=== PATIENT | male | born 1980 ===

== ENCOUNTER 2023-02-14 22:38 | Emergency (ER) | payer BC, OTHER ==
--- OUTSIDE RECORDS SUMMARY | 2023-02-14 22:54 | XMS REPORT | Continuity of Care Document ---
:1980 Author Organization [facility] t Address [address] [facility] [address] [place] [address] Care Team Providers Name Role Phone ANTONIO PALMA Primary Care Physician Unavailable Zeke Dodd Attending Clinician Unavailable German Madsen MD Attending Clinician Bella Pichardo MD Attending Clinician BELLA PICHARDO Attending Clinician Unavailable Alejandro Ortiz DO Attending Clinician Doctor Unassigned, [place] Attending Clinician Unavailable Roger Walls Attending Clinician Royal Cuadra Attending Clinician Hal Torres Attending Clinician Carl Saul Attending Clinician Physician, No Primary or Family Admitting Clinician UnavailBella Fleming MD Admitting Clinician BELLA PICHARDO Admitting Clinician Unavailable Roger Walls Admitting Clinician Hal Torres Admitting Clinician Carl Saul Admitting Clinician Payers Payer Name Policy Type Policy Number Effective Date Expiration Date S ource Problems Condition Condition Condition Status Onset Resolution Last Treating Co mments Source Name Details Category Date Date Treatment Clinician Date Sinus Sinus Disease Active [facility] bradycardi bradycardi 12-18 it y of a a 00:00: [place] 00 Medical Branch RUQ pain RUQ pain Disease Active Unive rs 5-29 ity of 00:00: [place] 00 Medical Branch SBO (small SBO (small Disease Active 2018-07 U nivers bowel bowel 1-25 it[place] obstruct[place] Obesity Obesity Disease Active 2018-07 Univers (BMI (BMI 1-25 ity of 30-39.9) 30-39.9) 00:00: [place] 00 Medical Branch DX: R10.9 DX: Diagnosis Active 2017-072018-04-23 Memoria R10.9 0 14:12:00 l Active 00:00: Vijay 04/23/2018 00 [facility] Hominy DIVERTICUL DIVERTICU Diagnosis Active 2018-04-23 Memoria ITIS OF LITIS OF 03-18 21:55:00 l LARGE LARGE 06:00: Hom[place] INTESTINE INTESTINE 00 W/O PE W/O PE Active 03/18/2018 [facility] UNK UNK Diagnosis Active 2018-03-20 Mem oria Active 03-18 15:01:00 l 03/18/2018 00:00: Dylon logan [address] OTHER PER OTHER Diagnosis Active 2018-02-23 Sean BEAUCHAMP PER 02-22 00:30:00 l Active 00:00: Vijay 02/22/2018 00 [facility] DIVERTICUL DIVERTICU Diagnosis Active 2018-02-27 Memoria ITIS LARGE LITIS 02-22 15:48:00 l INTESTINE LARGE 00:00: Vijay INTESTINE 00 Active 02/22/2018 [facility] PARTIAL PARTIAL Diagnosis Active 2016-072017-07-22 Memoria SBO SBO Active 09-07 21:57:00 l 07/07/2017 23:34: Dylon logan [address] Gastro-eso Gastro-es Problem 2018-11-06 Memoria phageal ophageal 11:05:19 l reflux reflux Hominy disease disease without without esophagiti esophagiti s s 11/06/2018 [facility] Personal Personal Problem 2018-11-06 Memoria history of history of 11:05:19 l peptic peptic Hominy ulcer ulcer disease disease 11/06/2018 [facility] 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, 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, 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, of small part intestine, unspecifie part d unspecifie d 07/14/2017 [facility] Diverticul Diverticu Problem 2018-11-06 Memoria itis of litis of 11:05:19 l large large Vijay intestine intestine without without perforatio perforatio n or n or abscess abscess without without bleeding bleeding 11/06/2018 [facility] Morbid Morbid Problem 2018-11-06 Shashi kita (severe) (severe) 11:05:19 l obesity obesity Hominy due to due to excess excess calories calories 11/06/2018 [facility] Peritoneal Peritonea Problem 2018-11-06 Memoria adhesions l 11:05:19 l (postproce adhesions Her justin dural) (postproce (postinfec dural) tion) (postinfec tion) 11/06/2018 [facility] Gastric Gastric Problem Resolve 2018-12-14 M emoria ulcer ulcer d 13:43:01 l (disorder) (disorder) He rmann Resolved Problem 12/14/2018 [facility] Intestinal Intestina Problem Resolve 2018-12-14 Memoria obstructio l d 13:43:01 l n obstructio Dylon n (disorder) n (disorder) Resolved Problem 12/14/2018 [facility] Diverticul Diverticu Problem Active 2018-12-14 Memoria itis of litis of 13:43:01 l sigmoid sigmoid Vijay colon colon (disorder) (disorder) Active Problem 12/14/2018 [facility] Gastroesop Gastroeso Problem Active 2018-12-14 Memoria hageal phageal 13:43:01 l reflux reflux Vijay disease disease (disorder) (disorder) Active Problem 12/14/2018 [facility] Simple Simple Problem Active 2018-12-14 Shashi kita obesity obesity 13:43:01 l (disorder) (disorder) He rmann Active Problem 12/14/2018 [facility] UNSP UNSP Diagnosis Active 2017-07-22 Mem oria INTESTNL INTESTNL 21:57:00 l OBST, UNSP OBST, UNSP He rmann TO TO PARTIAL V PARTIAL V Active [facility] 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, ABSENCE, 01:45:00 l ATRESIA ATRESIA Hominy AND AND STENOSIS STENOSIS OF OF Active [facility] DVTRCLI OF DVTRCLI Diagnosis Active 2018-02-27 Memoria LG INT W OF LG INT 15:48:00 l PERFORATIO W Dylon n N AND ABSC PERFORATIO N AND ABSC Active [facility] DVTRCLI OF DVTRCLI Diagnosis Active 2018-04-23 Memoria LG INT W/O OF LG INT 21:55:00 l PERFORATIO W/O Dylon n N OR ABS PERFORATIO N OR ABS Active [facility] OBSTRUCTIV OBSTRUCTI Diagnosis Active 2018-04-17 Memoria E SLEEP VE SLEEP 09:21:00 l APNEA APNEA Hominy (ADULT) (ADULT) (PEDIATR (PEDIATR Active [facility] History of Past Illness Condition Condition Condition Status Onset Resolution Last Treating Co mments Source Name Details Category Date Date Treatment Clinician Date Right Right Problem 2017-072018-11-10 2018-11-10 M emoria upper upper 0-10 15:48:13 15:48:13 l quadrant quadrant 03:38: Dylon n pain pain 53 04/29/2018 11/10/2018 [facility] Diverticul Diverticu Problem 2017-072018-11-06 2018-11-06 Memoria itis of litis of 2-03 11:05:19 11:05:19 l large large 04:48: Vijay intestine intestine 59 with with perforatio perforatio n and n and abscess abscess without without bleeding bleeding 06/22/2018 9 [facility] Allergies, Adverse Reactions, Alerts Allergy Allergy Status Severity Reaction(s) Onset Inactive Treating Comm ents Source Name Type Date Date Clinician No Known DA Active U 2020-07 [facility] Allergie 0-08 Clear s 00:00: Gil 00 [facility] No Known DA Active U 2020-07 [facility] Allergie 0-08 Clear s 00:00: Gil 00 [facility] cefuroxi DA Active U [facility] me 6-23 Clear 00:00: Gil 00 [facility] cefuroxi DA Active U 2007- [facility] me 6- Clear 00:00: Gil [facility] CEFTIN DA Active U 2007- [facility] 6- Clear 00:00: Gil [facility] No Known DA Active U 2007- [facility] Contrast - Clear Allergie 00:00: Gil s 00 [facility] No Known DA Active U 2007- [facility] Food 6- Clear Allergie 00:00: Gil s [facility] No Known DA Active U [facility] Other 6- Clear Allergie 00:00: Gil s 00 [facility] NO KNOWN Drug Active Univers ALLERGIE Class ity of S [place] [facility] No Known No Known Active Memori a Medicati Medicati l on on Vijay Allergie Allergie s s Social History Social Habit Start Date Stop Date Quantity Comments Source History [facility] o f Alcohol Frequency [facility] edical Branch Exposure to 2022-12-06 2022-12-16 Not sure [facility] SARS-CoV-2 00:00:00 17:03:00 [place] [facility] Tobacco use and 2022-12-16 2022-12-16 Former smokeless Uni versity of exposure 00:00:00 00:00:00 tobacco user [place] [facility] Alcohol intake 2022-12-16 2022-12-16 Current drinker Unive rsity of 00:00:00 00:00:00 of alcohol [place] [facility] (finding[facility] 2019-06-14 2019-06-14 5 University o f Alcohol Std 00:00:00 00:00:00 [place] [facility] History [facility] 2019-06-14 2019-06-14 3 University o f Alcohol Binge 00:00:00 00:00:00 [place] [facility] Social History 2017-07-08 2017-07-08 [facility] 08:08:54 08:08:54 [birth year] Universit y of 00:00:00 00:00:00 [facility] Branch Smoking Status Start Date Stop Date Source Never smoked tobacco [facility] Medications Ordered Filled Start Stop Current Ordering Indication Dosage Frequency Signature Comments Components Source Medication Medication Date Date Medication? Clinician (SIG) Name Name levothyroxi 2022- Yes [id number] 50ug Take 1 Univers ne 50 mcg 12-20 tablet by ity of tablet 00:00: 04:59 mouth [place] 00 :00 every Medical morning Branch for 30 days. pantoprazol 2022- Yes [id number] 40mg Take 1 Univers e 40 mg EC 12-20 tablet by ity of tablet 00:00: 04:59 mouth in [place] 00 :00 the Medical morning Branch for 30 days. levothyroxi Yes 50ug 50 mcg, Uni vers ne 12-19 Oral, ity of (SYNTHROID) 11:00: QAM-0600, [place] tablet 50 00 First dose Medi ivan mcg on Fri Branch 12/19/22 at 0600, Until Discontinu ed, Routine ondansetron Yes [id number] 4mg Take 1 Univers 4 mg tablet 12-19 tablet by ity of 00:00: mouth [place] 00 every 8 Medical (eight) Branch hours as needed for Nausea and Vomiting (N/V). sucralfate 2022- Yes [id number] 1g Take 1 Univers 1 gram 12-19 tablet by ity of tablet 00:00: 04:59 mouth [place] 00 :00 before Medical meals and Branch at bedtime for 30 days. HYDROcodone 2022- Yes [id number] 1{tbl} Take 1 U nivers -acetaminop 12-19 tablet by it y of hen 5-325 00:00: 04:59 mouth [place] mg tablet 00 :00 every 6 Medical (six) Branch hours as needed for Pain (scale 4-6) for up to 5 days. Indication s: acute pain HYDROcodone Yes 1{tbl} 1 tablet, Univers -acetaminop 5-31 Oral, ity of hen (NORCO 22:56: Q6HPRN, [place] 5) 5-325 mg 33 Starting Medi ivan tablet 1 on Fri Branch tablet 12/18/22 at 1756, Until Discontinu ed, Routine, Pain (scale 4-6) morpHINE (2 Yes 4mg 4 mg, Slow Univers mg/mL) 5-30 IV Push, ity of injection 4 22:43: Q4HPRN, Le[place] as mg 59 Starting Medical on Fri Branch 12/17/22 at 1743, Until Discontinu ed, Routine, Pain (scale 7-10) pantoprazol Yes 40mg 40 mg, Univ ers e 12-17 Oral, ity of (PROTONIX) 14:00: DAILY, [place] EC tablet 00 First dose Medi ivan 40 mg on Fri12/17/22 at 0900, Until Discontinu ed, Routine NaCl 0.9% 2022- No 1000mL at 50 Univ ers (NS) IV 12-17 06-01 mL/hr, IV ity of infusion 13:30: 13:52 Infusion, Leif as 1,000 mL 00 :41 CONTINUOUS Medic al , Starting Branch on Fri12/17/22 at 0830, Until Merna 12/19/22 at 0852, Routine pantoprazol 2022- No 40mg 40 mg, Uni vers e 12-16 Slow IV ity of (PROTONIX) 23:00: 22:24 Push, [place] injection 00 :00 ONCE, 1 Medical 40 mg dose, On Branch Fri12/16/22 at 1800 NaCl 0.9% 2022- No 1000mL at 125 Uni vers (NS) IV 12-16 0530 mL/hr, IV ity of infusion 22:15: 13:25 Infusion, Leif as 1,000 mL 00 :41 CONTINUOUS Medic al , Starting Branch on Fri12/16/22 at 1715, Until Fri12/17/22 at 0825, Routine ondansetron Yes 4mg 4 mg, Slow Univers (ZOFRAN 12-16 IV Push, ity of (PF)) 22:06: Q6HPRN, [place] injection 4 18 Starting Medi ivan mg on Fri12/16/22 at 1706, Until Discontinu ed, Routine, Nausea and Vomiting (N/V) morpHINE (2 2022- No 4mg 4 mg, Slow Univers mg/mL) 12-16 IV Push, ity of injection 4 22:06: 22:05 Q4HPRN, [place] mg 14 :14 Starting Medical on Fri12/16/22 at 1706, Until Fri12/17/22 at 1705, Routine, Pain (scale 7-10) HYDROcodone 2022-0 2022- No 1{tbl} 1 tablet, Univers -acetaminop 12-16 Oral, ity of hen (NORCO 22:06: 22:05 Q6HPRN, Le[place] as 5) 5-325 mg 12 :12 Starting Medi ivan tablet 1 on Fri tablet 12/16/22 at 1706, Until 12/18/22 at 1705, Routine, Pain (scale 4-6) acetaminoph Yes 650mg 650 mg, Un jonas en 12-16 Oral, ity of (TYLENOL) 22:06: Q6HPRN, [place] tablet 650 05 Starting Medic al mg on Fri Branch 12/16/22 at 1706, Until Discontinu ed, Routine, Pain (scale 1-3), Temp > 38 C sucralfate Yes 1g 1 g, Oral, U nivers (CARAFATE) 12-16 AC+HS, ity of tablet 1 g 21:30: [place] dose [place] 00 on Fri Medical 12/16/22 at Branch 1630, Until Discontinu ed, Routine FENTanyl PF 2022- No 75ug 75 mcg, Un jonas (SUBLIMAZE 12-16 Slow IV ity o f (PF)) 19:15: 18:28 Push, [place] injection 00 :00 ONCE, 1 Medical 75 mcg dose, On Branch Fri12/16/22 at 1415, STAT NaCl 0.9% No 1000mL at 125 Uni vers (NS) bolus 12-16 mL/hr, ity of infusion 19:15: 18:27 1,000 mL, [place] as 1,000 mL 00 :00 IV Medical Infusion, Branch ONCE, 1 dose, On Fri12/16/22 at 1415, STAT iopamidol 2022- No [id number] 75mL 75 mL, Univers (ISOVUE 12-16 Intravenou ity o f 370-500 mL) 18:35: 18:45 s, ONCE, 1 [place] injection 00 :00 dose, On Medica l 75 mL [facility] Branch 12/16/22 at 1345, Routine Acetaminoph No 2 tab, PO, Memoria en 300 MG / -30 Q6H, PRN l Codeine 16:17: Pain, X 7 Veronica nn Phosphate 00 day, # 56 30 MG Oral tab, 0 Tablet Refill(s) [Tylenol with Codeine #3] tramadol No 100 mg = 2 Mem oria hydrochlori 9-30 tab, PO, l de 50 MG 16:17: Q6H, X 7 Veronica nn Oral Tablet 00 day, # 56 tab, 0 Refill(s) gabapentin Yes 300 mg = 1 M emoria 300 MG Oral 9-30 cap, PO, l Capsule 16:17: TID, # 42 Veronica nn 00 cap, 0 Refill(s) Acetaminoph 0 No 2 tab, PO, Memoria en 300 MG / 9-30 Q6H, PRN l Codeine 16:17: Pain, X 7 Veronica nn Phosphate 00 day, # 56 30 MG Oral tab, 0 Tablet Refill(s) [Tylenol with Codeine #3] tramadol No 100 mg = 2 Mem oria hydrochlori 9-30 tab, PO, l de 50 MG 16:17: Q6H, X 7 Veronica nn Oral Tablet 00 day, # 56 tab, 0 Refill(s) gabapentin 2017- Yes 300 mg = 1 M emoria 300 MG Oral 9-30 cap, PO, l Capsule 16:17: TID, # 42 Veronica nn 00 cap, 0 Refill(s) Acetaminoph 0 No 2 tab, PO, Memoria en 300 MG / 9-30 Q6H, PRN l Codeine 16:17: Pain, X 7 Veronica nn Phosphate 00 day, # 56 30 MG Oral tab, 0 Tablet Refill(s) [Tylenol with Codeine #3] tramadol No 100 mg = 2 Mem oria hydrochlori 9-30 tab, PO, l de 50 MG 16:17: Q6H, X 7 Veronica nn Oral Tablet 00 day, # 56 tab, 0 Refill(s) gabapentin 0 Yes 300 mg = 1 M emoria 300 MG Oral 9-30 cap, PO, l Capsule 16:17: TID, # 42 Veronica nn 00 cap, 0 Refill(s) Acetaminoph 0 No 2 tab, PO, Memoria en 300 MG / 9-30 Q6H, PRN l Codeine 16:17: Pain, X 7 Veronica nn Phosphate 00 day, # 56 30 MG Oral tab, 0 Tablet Refill(s) [Tylenol with Codeine #3] tramadol No 100 mg = 2 Mem oria hydrochlori 9-30 tab, PO, l de 50 MG 16:17: Q6H, X 7 Veronica nn Oral Tablet 00 day, # 56 tab, 0 Refill(s) gabapentin Yes 300 mg = 1 M emoria 300 MG Oral 9-30 cap, PO, l Capsule 16:17: TID, # 42 Veronica nn 00 cap, 0 Refill(s) gabapentin No Notes: Memor ia 9-29 (Same as: l 18:00: Neurontin) gabapentin No Notes: Memor ia 9-29 (Same as: l 18:00: Neurontin) gabapentin No Notes: Memor ia 9-29 (Same as: l 18:00: Neurontin) gabapentin No Notes: Memor ia 9-29 (Same as: l 18:00: Neurontin) Tramadol No Notes: Not Mem oria 9-29 to exceed l 17:00: 400mg/day. (Same As: Ultram) Tramadol No Notes: Not Mem oria 9-29 to exceed l 17:00: 400mg/day. (Same As: Ultram) Tramadol No Notes: Not Mem oria 9-29 to exceed l 17:00: 400mg/day. (Same As: Ultram) Tramadol No Notes: Not Mem oria 9-29 to exceed l 17:00: 400mg/day. (Same As: Ultram) Famotidine No Notes: Memor ia 9-29 (Same as: l 02:00: Pepcid) Famotidine No Notes: Memor ia 9-29 (Same as: l 02:00: Pepcid) Famotidine No Notes: Memor ia 9-29 (Same as: l 02:00: Pepcid) Famotidine 2018-0 No Notes: Memor ia 9-29 (Same as: l 02:00: Pepcid) Tylenol 2017-0 No Notes: Do Memor ia 9-28 not exceed l 23:00: 4 gm/day. (Same as: Tylenol) Ketorolac 2017-0 No 4 days. Shashi kita 9-28 l 23:00: Hominy 00 Cefoxitin 2017-0 No Notes: Memori a 9-28 (Same As: l 23:00: Mefoxin) Tylenol 2017-0 No Notes: Do Memor ia 9-28 not exceed l 23:00: 4 gm/day. (Same as: Tylenol) Ketorolac 2017-0 No 4 days. Shashi kita 9-28 l 23:00: Cefoxitin 2017-0 No Notes: Memori a 9-28 (Same As: l 23:00: Mefoxin) Tylenol 2017-0 No Notes: Do Memor ia 9-28 not exceed l 23:00: 4 gm/day. (Same as: Tylenol) Ketorolac 2017-0 No 4 days. Shashi kita 9-28 l 23:00: Cefoxitin 2017-0 No Notes: Memori a 9-28 (Same As: l 23:00: Mefoxin) Tylenol 2017-0 No Notes: Do Memor ia 9-28 not exceed l 23:00: 4 gm/day. (Same as: Tylenol) Ketorolac 2017-0 No 4 days. Shashi kita 9-28 l 23:00: Cefoxitin 2017-0 No Notes: Memori a 9-28 (Same As: l 23:00: Mefoxin) Robaxin 2017-0 No Notes: Memoria 9-28 (Same l 22:00: as:Robaxin ) Robaxin 2017-0 No Notes: Memoria 9-28 (Same l 22:00: as:Robaxin Vijay 00 ) Robaxin 2017-0 No Notes: Memoria 9-28 (Same l 22:00: as:Robaxin ) Robaxin 2017-0 No Notes: Memoria 9-28 (Same l 22:00: as:Robaxin ) Metronidazo No Notes: Shashi kita le 04-17 (Same as: l 21:00: Flagyl) Avoid alcohol. gabapentin No Notes: Memor ia 300 MG Oral 04-17 (Same as: l Capsule 21:00: Neurontin) Herm Metronidazo No Notes: Shashi kita le 04-17 (Same as: l 21:00: Flagyl) Avoid alcohol. gabapentin No Notes: Memor ia 300 MG Oral 04-17 (Same as: l Capsule 21:00: Neurontin) Metronidazo No Notes: Shashi kita le 04-17 (Same as: l 21:00: Flagyl) Avoid alcohol. gabapentin No Notes: Memor ia 300 MG Oral 04-17 (Same as: l Capsule 21:00: Neurontin) Metronidazo No Notes: Shashi kita le 04-17 (Same as: l 21:00: Flagyl) Avoid alcohol. gabapentin No Notes: Memor ia 300 MG Oral 04-17 (Same as: l Capsule 21:00: Neurontin) Levsin SL No Notes: Memori a 9- (Same as: l 20:23: Levsin) Take 30 min before meal Levsin SL No Notes: Memori a 9-28 (Same as: l 20:23: Levsin) Take 30 min before meal Levsin SL No Notes: Memori a 9-28 (Same as: l 20:23: Levsin) Take 30 min before meal Levsin SL No Notes: Memori a 9-28 (Same as: l 20:23: Levsin) Take 30 min before meal ketOROLAC No IV, ONCE Shashi kita (ANES) 04-17 l 18:17: neostigmine No Route: IV, Memoria (ANES) 04-17 Drug form: l 18:17: INJ, ONCE, Stop date: 04/17/18 13:17:00 CDT glycopyrrol No Route: IV, Memoria ate (ANES) 04-17 Drug form: l 18:17: INJ, ONCE, Stop date: 04/17/18 13:17:00 CDT ketOROLAC 0 No IV, ONCE Shashi kita (ANES) 04-17 l 18:17: Vijay 00 neostigmine No Route: IV, Memoria (ANES) 04-17 Drug form: l 18:17: INJ, ONCE, Stop date: 04/17/18 13:17:00 CDT glycopyrrol 0 No Route: IV, Memoria ate (ANES) 04-17 Drug form: l 18:17: INJ, ONCE, Stop date: 04/17/18 13:17:00 CDT ketOROLAC 0 No IV, ONCE Shashi kita (ANES) 04-17 l 18:17: neostigmine No Route: IV, Memoria (ANES) 04-17 Drug form: l 18:17: INJ, ONCE, Stop date: 04/17/18 13:17:00 CDT glycopyrrol 0 No Route: IV, Memoria ate (ANES) 04-17 Drug form: l 18:17: INJ, ONCE, Stop date: 04/17/18 13:17:00 CDT ketOROLAC 0 No IV, ONCE Shashi kita (ANES) 04-17 l 18:17: neostigmine No Route: IV, Memoria (ANES) 04-17 Drug form: l 18:17: INJ, ONCE, Stop date: 04/17/18 13:17:00 CDT glycopyrrol 0 No Route: IV, Memoria ate (ANES) 04-17 Drug form: l 18:17: INJ, ONCE, Stop date: 04/17/18 13:17:00 CDT Acetaminoph 0 No Notes: Shashi kita en 325 MG / 04-17 (Same as: l Hydrocodone 18:13: [place] Veronica nn Bitartrate 00 325/5) Do 5 MG Oral not exceed Tablet 4gm/day of [[place] acetaminop 5/325] hen. Acetaminoph No Notes: Shashi kita en 325 MG / 04-17 (Same as: l Hydrocodone 18:13: [place] Veronica nn Bitartrate 00 325/5) Do 5 MG Oral not exceed Tablet 4gm/day of [[place] acetaminop 5/325] hen. Acetaminoph No Notes: Shashi kita en 325 MG / 04-17 (Same as: l Hydrocodone 18:13: [place] Veronica nn Bitartrate 00 325/5) Do 5 MG Oral not exceed Tablet 4gm/day of [[place] acetaminop 5/325] hen. Acetaminoph No Notes: Shashi kita en 325 MG / 04-17 (Same as: l Hydrocodone 18:13: [place] Veronica nn Bitartrate 00 325/5) Do 5 MG Oral not exceed Tablet 4gm/day of [[place] acetaminop 5/325] hen. Ondansetron No Notes: Shashi kita 04-17 (Same as: l 18:10: Julia) Vijay 00 MEDICATION WASTE Product Size: 4 mg Product Wasted: ___ mg Morphine No Notes: Memoria 04-17 (Same l 18:10: as:MORPhin Hominy 00 e Sulfate) Calcium No 1,000 mL, Memor ia Chloride 04-17 Rate: 45 l 0.0014 18:10: ml/hr, Vijay MEQ/ML / 00 Infuse Potassium over: 22.2 Chloride hr, Route: 0.004 IV, Dosing MEQ/ML / Weight Sodium 106.409 Chloride kg, Total 0.103 Volume: MEQ/ML / 1,000, Sodium Start Lactate date: 0.028 04/17/18 MEQ/ML 13:10:00 Injectable CDT, Solution Duration: 30 day, Stop date: 05/17/18 13:11:00 CDT, 2.34, m2 Ondansetron No Notes: Shahsi kita 04-17 (Same as: l 18:10: Zofran) Hominy 00 MEDICATION WASTE Product Size: 4 mg Product Wasted: ___ mg Morphine No Notes: Memoria 04-17 (Same l 18:10: as:MORPhin Vijay 00 e Sulfate) Calcium No 1,000 mL, Memor ia Chloride 04-17 Rate: 45 l 0.0014 18:10: ml/hr, Vijay MEQ/ML / 00 Infuse Potassium over: 22.2 Chloride hr, Route: 0.004 IV, Dosing MEQ/ML / Weight Sodium 106.409 Chloride kg, Total 0.103 Volume: MEQ/ML / 1,000, Sodium Start Lactate date: 0.028 04/17/18 MEQ/ML 13:10:00 Injectable CDT, Solution Duration: 30 day, Stop date: 05/17/18 13:11:00 CDT, 2.34, m2 Ondansetron No Notes: Shashi kita 04-17 (Same as: l 18:10: Zofran) Vijay 00 MEDICATION WASTE Product Size: 4 mg Product Wasted: ___ mg Morphine No Notes: Memoria 04-17 (Same l 18:10: as:MORPhin Hominy 00 e Sulfate) Calcium No 1,000 mL, Memor ia Chloride 04-17 Rate: 45 l 0.0014 18:10: ml/hr, Hominy MEQ/ML / 00 Infuse Potassium over: 22.2 Chloride hr, Route: 0.004 IV, Dosing MEQ/ML / Weight Sodium 106.409 Chloride kg, Total 0.103 Volume: MEQ/ML / 1,000, Sodium Start Lactate date: 0.028 04/17/18 MEQ/ML 13:10:00 Injectable CDT, Solution Duration: 30 day, Stop date: 05/17/18 13:11:00 CDT, 2.34, m2 Ondansetron No Notes: Shashi kita 04-17 (Same as: l 18:10: Zofran) Vijay 00 MEDICATION WASTE Product Size: 4 mg Product Wasted: ___ mg Morphine No Notes: Memoria 04-17 (Same l 18:10: as:MORPhin Vijay 00 e Sulfate) Calcium No 1,000 mL, Memor ia Chloride 04-17 Rate: 45 l 0.0014 18:10: ml/hr, Vijay MEQ/ML / 00 Infuse Potassium over: 22.2 Chloride hr, Route: 0.004 IV, Dosing MEQ/ML / Weight Sodium 106.409 Chloride kg, Total 0.103 Volume: MEQ/ML / 1,000, Sodium Start Lactate date: 0.028 04/17/18 MEQ/ML 13:10:00 Injectable CDT, Solution Duration: 30 day, Stop date: 05/17/18 13:11:00 CDT, 2.34, m2 Meperidine 2018-0 No 12.5 mg, Mem oria 04-17 Route: l 18:07: IVP, Vijay 00 Q30Min, Dosing Weight 106.409, kg, PRN Other -See Comment, For shivering, Start date: 04/17/18 13:07:00 CDT, Duration: 2 doses or times, Stop date: Limited # of times Naloxone 2018-0 No 0.1 mg, Memori a 04-17 Route: l 18:07: SUB-Q, Hominy 00 Q6H, Dosing Weight 106.409, kg, PRN Itching, Start date: 04/17/18 13:07:00 CDT, Duration: 30 day, Stop date: 05/17/18 13:06:00 CDT Promethazin 2018-0 No 6.25 mg, Me moria e 04-17 Route: l 18:07: IVPB, Hominy 00 ONCE, Dosing Weight 106.409, kg, PRN Nausea & Vomiting, Start date: 04/17/18 13:07:00 CDT Ondansetron 2018-0 No 4 mg, Memor ia 04-17 Route: l 18:07: IVP, ONCE, Vijay 00 Dosing Weight 106.409, kg, PRN Nausea & Vomiting, Start date: 04/17/18 13:07:00 CDT 72 HR 2018-0 No 1 patch, Memoria Scopolamine 04-17 Route: l 0.0139 18:07: TOP, Drug Dylon n MG/HR 00 Form: Transdermal ERFILM, Patch Dosing Weight 106.409, kg, ONCE, Apply behind ear. Avoid use in elderly., Start date: 04/17/18 13:07:00 CDT, Stop date: 04/17/18 13:07:00 CDT Oxycodone 2018-0 No 5 mg, Memoria 04-17 Route: NG, l 18:07: Drug form: Hominy 00 LIQ, Q4H, Dosing Weight 106.409, kg, PRN Pain Score 4-6, Start date: 04/17/18 13:07:00 CDT, Duration: 30 day, Stop date: 05/17/18 13:06:00 CDT Acetaminoph 2018-0 No 1,000 mg, M jackyria en 04-17 Route: l 18:07: IVPB, Drug Vijay 00 form: INJ, ONCE, Dosing Weight 106.409, kg, PRN Pain Score 1-3, Start date: 04/17/18 13:07:00 CDT Flumazenil 2018-0 No 0.2 mg, Shashi kita 04-17 Route: l 18:07: IVP, PRN, Vijay 00 Dosing Weight 106.409, kg, PRN Benzodiaze pine Reversal, Initial dose, Start date: 04/17/18 13:07:00 CDT, Duration: 30 day, Stop date: 05/17/18 13:06:00 CDT Fentanyl 2017-0 No 50 Memoria 04-17 microgram, l 18:07: Route: Hominy 00 IVP, Q5Min, Dosing Weight 106.409, kg, PRN Pain Score 7-10, Priority: Routine, Start date: 04/17/18 13:07:00 CDT, Duration: 2 doses or times, Stop date: Limited # of times Hydromorpho 2018-0 No 0.5 mg, Mem oria ne 04-17 Route: l 18:07: IVP, Hominy 00 Q5Min, Dosing Weight 106.409, kg, PRN Pain Score 7-10, Start date: 04/17/18 13:07:00 CDT, Duration: 4 doses or times, Stop date: Limited # of times Albuterol 2018-0 No 2.49 mg, Shashi kita 0.83 MG/ML 04-17 Route: l Inhalant 18:07: NEB, Hominy Solution 00 Q20Min, Dosing Weight 106.409, kg, PRN Wheezing, Priority: STAT, Start date: 04/17/18 13:07:00 CDT, Duration: 30 day, Stop date: 05/17/18 13:06:00 CDT Diphenhydra 2017-0 No 12.5 mg, Me moria mine 04-17 Route: l 18:07: IVP, Drug Vijay 00 form: INJ, Q6H, Dosing Weight 106.409, kg, PRN Itching, Start date: 04/17/18 13:07:00 CDT, Duration: 30 day, Stop date: 05/17/18 13:06:00 CDT Meperidine 2018-0 No 12.5 mg, Mem oria 04-17 Route: l 18:07: IVP, Hominy 00 Q30Min, Dosing Weight 106.409, kg, PRN Other -See Comment, For shivering, Start date: 04/17/18 13:07:00 CDT, Duration: 2 doses or times, Stop date: Limited # of times Naloxone 2018-0 No 0.1 mg, Memori a 04-17 Route: l 18:07: SUB-Q, Hominy 00 Q6H, Dosing Weight 106.409, kg, PRN Itching, Start date: 04/17/18 13:07:00 CDT, Duration: 30 day, Stop date: 05/17/18 13:06:00 CDT Promethazin 2018-0 No 6.25 mg, Me moria e 04-17 Route: l 18:07: IVPB, Vijay 00 ONCE, Dosing Weight 106.409, kg, PRN Nausea & Vomiting, Start date: 04/17/18 13:07:00 CDT Ondansetron 2018-0 No 4 mg, Memor ia 04-17 Route: l 18:07: IVP, ONCE, Hominy 00 Dosing Weight 106.409, kg, PRN Nausea & Vomiting, Start date: 04/17/18 13:07:00 CDT 72 HR 2018-0 No 1 patch, Memoria Scopolamine 04-17 Route: l 0.0139 18:07: TOP, Drug Dylon n MG/HR 00 Form: Transdermal ERFILM, Patch Dosing Weight 106.409, kg, ONCE, Apply behind ear. Avoid use in elderly., Start date: 04/17/18 13:07:00 CDT, Stop date: 04/17/18 13:07:00 CDT Oxycodone 2018-0 No 5 mg, Memoria 04-17 Route: NG, l 18:07: Drug form: Hominy 00 LIQ, Q4H, Dosing Weight 106.409, kg, PRN Pain Score 4-6, Start date: 04/17/18 13:07:00 CDT, Duration: 30 day, Stop date: 05/17/18 13:06:00 CDT Acetaminoph 2018-0 No 1,000 mg, M emoria en 04-17 Route: l 18:07: IVPB, Drug Vijay 00 form: INJ, ONCE, Dosing Weight 106.409, kg, PRN Pain Score 1-3, Start date: 04/17/18 13:07:00 CDT Flumazenil 2018-0 No 0.2 mg, Shashi kita 04-17 Route: l 18:07: IVP, PRN, Hominy 00 Dosing Weight 106.409, kg, PRN Benzodiaze pine Reversal, Initial dose, Start date: 04/17/18 13:07:00 CDT, Duration: 30 day, Stop date: 05/17/18 13:06:00 CDT Fentanyl 2017-0 No 50 Memoria 04-17 microgram, l 18:07: Route: Vijay 00 IVP, Q5Min, Dosing Weight 106.409, kg, PRN Pain Score 7-10, Priority: Routine, Start date: 04/17/18 13:07:00 CDT, Duration: 2 doses or times, Stop date: Limited # of times Hydromorpho 2018-0 No 0.5 mg, Mem oria ne 04-17 Route: l 18:07: IVP, Hominy 00 Q5Min, Dosing Weight 106.409, kg, PRN Pain Score 7-10, Start date: 04/17/18 13:07:00 CDT, Duration: 4 doses or times, Stop date: Limited # of times Albuterol 2018-0 No 2.49 mg, Shashi kita 0.83 MG/ML 04-17 Route: l Inhalant 18:07: NEB, Hominy Solution 00 Q20Min, Dosing Weight 106.409, kg, PRN Wheezing, Priority: STAT, Start date: 04/17/18 13:07:00 CDT, Duration: 30 day, Stop date: 05/17/18 13:06:00 CDT Diphenhydra 2018-0 No 12.5 mg, Me moria mine 04-17 Route: l 18:07: IVP, Drug Hominy 00 form: INJ, Q6H, Dosing Weight 106.409, kg, PRN Itching, Start date: 04/17/18 13:07:00 CDT, Duration: 30 day, Stop date: 05/17/18 13:06:00 CDT Meperidine 2018-0 No 12.5 mg, Mem oria 04-17 Route: l 18:07: IVP, Vijay 00 Q30Min, Dosing Weight 106.409, kg, PRN Other -See Comment, For shivering, Start date: 04/17/18 13:07:00 CDT, Duration: 2 doses or times, Stop date: Limited # of times Naloxone 2018-0 No 0.1 mg, Memori a 04-17 Route: l 18:07: SUB-Q, Hominy 00 Q6H, Dosing Weight 106.409, kg, PRN Itching, Start date: 04/17/18 13:07:00 CDT, Duration: 30 day, Stop date: 05/17/18 13:06:00 CDT Promethazin 2018-0 No 6.25 mg, Me moria e 04-17 Route: l 18:07: IVPB, Vijay 00 ONCE, Dosing Weight 106.409, kg, PRN Nausea & Vomiting, Start date: 04/17/18 13:07:00 CDT Ondansetron 2018-0 No 4 mg, Memor ia 04-17 Route: l 18:07: IVP, ONCE, Vijay 00 Dosing Weight 106.409, kg, PRN Nausea & Vomiting, Start date: 04/17/18 13:07:00 CDT 72 HR 2017-0 No 1 patch, Memoria Scopolamine 04-17 Route: l 0.0139 18:07: TOP, Drug Dylon n MG/HR 00 Form: Transdermal ERFILM, Patch Dosing Weight 106.409, kg, ONCE, Apply behind ear. Avoid use in elderly., Start date: 04/17/18 13:07:00 CDT, Stop date: 04/17/18 13:07:00 CDT Oxycodone 2018-0 No 5 mg, Memoria 04-17 Route: NG, l 18:07: Drug form: Hominy 00 LIQ, Q4H, Dosing Weight 106.409, kg, PRN Pain Score 4-6, Start date: 04/17/18 13:07:00 CDT, Duration: 30 day, Stop date: 05/17/18 13:06:00 CDT Acetaminoph 2018-0 No 1,000 mg, M jackyria en 04-17 Route: l 18:07: IVPB, Drug Vijay form: INJ, ONCE, Dosing Weight 106.409, kg, PRN Pain Score 1-3, Start date: 04/17/18 13:07:00 CDT Flumazenil 2018-0 No 0.2 mg, Shashi kita 04-17 Route: l 18:07: IVP, PRN, Vijay 00 Dosing Weight 106.409, kg, PRN Benzodiaze pine Reversal, Initial dose, Start date: 04/17/18 13:07:00 CDT, Duration: 30 day, Stop date: 05/17/18 13:06:00 CDT Fentanyl 2018-0 No 50 Memoria 04-17 microgram, l 18:07: Route: Vijay 00 IVP, Q5Min, Dosing Weight 106.409, kg, PRN Pain Score 7-10, Priority: Routine, Start date: 04/17/18 13:07:00 CDT, Duration: 2 doses or times, Stop date: Limited # of times Hydromorpho 2018-0 No 0.5 mg, Mem oria ne 04-17 Route: l 18:07: IVP, Hominy 00 Q5Min, Dosing Weight 106.409, kg, PRN Pain Score 7-10, Start date: 04/17/18 13:07:00 CDT, Duration: 4 doses or times, Stop date: Limited # of times Albuterol 2018-0 No 2.49 mg, Shashi kita 0.83 MG/ML 04-17 Route: l Inhalant 18:07: NEB, Vijay Solution 00 Q20Min, Dosing Weight 106.409, kg, PRN Wheezing, Priority: STAT, Start date: 04/17/18 13:07:00 CDT, Duration: 30 day, Stop date: 05/17/18 13:06:00 CDT Diphenhydra 2018-0 No 12.5 mg, Me moria mine 04-17 Route: l 18:07: IVP, Drug Hominy 00 form: INJ, Q6H, Dosing Weight 106.409, kg, PRN Itching, Start date: 04/17/18 13:07:00 CDT, Duration: 30 day, Stop date: 05/17/18 13:06:00 CDT Meperidine 2018-0 No 12.5 mg, Mem oria 04-17 Route: l 18:07: IVP, Hominy 00 Q30Min, Dosing Weight 106.409, kg, PRN Other -See Comment, For shivering, Start date: 04/17/18 13:07:00 CDT, Duration: 2 doses or times, Stop date: Limited # of times Naloxone 2018-0 No 0.1 mg, Memori a 04-17 Route: l 18:07: SUB-Q, Vijay 00 Q6H, Dosing Weight 106.409, kg, PRN Itching, Start date: 04/17/18 13:07:00 CDT, Duration: 30 day, Stop date: 05/17/18 13:06:00 CDT Promethazin 2018-0 No 6.25 mg, Me moria e 04-17 Route: l 18:07: IVPB, Vijay 00 ONCE, Dosing Weight 106.409, kg, PRN Nausea & Vomiting, Start date: 04/17/18 13:07:00 CDT Ondansetron 2018-0 No 4 mg, Memor ia 04-17 Route: l 18:07: IVP, ONCE, Vijay 00 Dosing Weight 106.409, kg, PRN Nausea & Vomiting, Start date: 04/17/18 13:07:00 CDT 72 HR 2017-0 No 1 patch, Memoria Scopolamine 04-17 Route: l 0.0139 18:07: TOP, Drug Dylon n MG/HR 00 Form: Transdermal ERFILM, Patch Dosing Weight 106.409, kg, ONCE, Apply behind ear. Avoid use in elderly., Start date: 04/17/18 13:07:00 CDT, Stop date: 04/17/18 13:07:00 CDT Oxycodone 2018-0 No 5 mg, Memoria 04-17 Route: NG, l 18:07: Drug form: Hominy 00 LIQ, Q4H, Dosing Weight 106.409, kg, PRN Pain Score 4-6, Start date: 04/17/18 13:07:00 CDT, Duration: 30 day, Stop date: 05/17/18 13:06:00 CDT Acetaminoph 2018-0 No 1,000 mg, M emoria en 04-17 Route: l 18:07: IVPB, Drug Hominy form: INJ, ONCE, Dosing Weight 106.409, kg, PRN Pain Score 1-3, Start date: 04/17/18 13:07:00 CDT Flumazenil 2018-0 No 0.2 mg, Shashi kita 04-17 Route: l 18:07: IVP, PRN, Hominy 00 Dosing Weight 106.409, kg, PRN Benzodiaze pine Reversal, Initial dose, Start date: 04/17/18 13:07:00 CDT, Duration: 30 day, Stop date: 05/17/18 13:06:00 CDT Fentanyl 2018-0 No 50 Memoria 04-17 microgram, l 18:07: Route: Hominy 00 IVP, Q5Min, Dosing Weight 106.409, kg, PRN Pain Score 7-10, Priority: Routine, Start date: 04/17/18 13:07:00 CDT, Duration: 2 doses or times, Stop date: Limited # of times Hydromorpho 2018-0 No 0.5 mg, Mem oria ne 04-17 Route: l 18:07: IVP, Vijay 00 Q5Min, Dosing Weight 106.409, kg, PRN Pain Score 7-10, Start date: 04/17/18 13:07:00 CDT, Duration: 4 doses or times, Stop date: Limited # of times Albuterol 2018-0 No 2.49 mg, Shashi kita 0.83 MG/ML 04-17 Route: l Inhalant 18:07: NEB, Hominy Solution 00 Q20Min, Dosing Weight 106.409, kg, PRN Wheezing, Priority: STAT, Start date: 04/17/18 13:07:00 CDT, Duration: 30 day, Stop date: 05/17/18 13:06:00 CDT Diphenhydra 2018-0 No 12.5 mg, Me moria mine 04-17 Route: l 18:07: IVP, Drug Vijay form: INJ, Q6H, Dosing Weight 106.409, kg, PRN Itching, Start date: 04/17/18 13:07:00 CDT, Duration: 30 day, Stop date: 05/17/18 13:06:00 CDT dexamethaso 2018-0 No Route: IV, Memoria ne (ANES) 04-17 Drug form: l 17:57: INJ, ONCE, Stop date: 04/17/18 12:57:00 CDT ondansetron 2018-0 No Route: IV, Memoria (ANES) 04-17 Drug form: l 17:57: INJ, ONCE, Stop date: 04/17/18 12:57:00 CDT dexamethaso 2018-0 No Route: IV, Memoria ne (ANES) 04-17 Drug form: l 17:57: INJ, ONCE, Stop date: 04/17/18 12:57:00 CDT ondansetron 2018-0 No Route: IV, Memoria (ANES) 04-17 Drug form: l 17:57: INJ, ONCE, Stop date: 04/17/18 12:57:00 CDT dexamethaso 2018-0 No Route: IV, Memoria ne (ANES) 04-17 Drug form: l 17:57: INJ, ONCE, Stop date: 04/17/18 12:57:00 CDT ondansetron 2018-0 No Route: IV, Memoria (ANES) 04-17 Drug form: l 17:57: INJ, ONCE, Stop date: 04/17/18 12:57:00 CDT dexamethaso 2018-0 No Route: IV, Memoria ne (ANES) 04-17 Drug form: l 17:57: INJ, ONCE, Stop date: 04/17/18 12:57:00 CDT ondansetron 2017-0 No Route: IV, Memoria (ANES) 04-17 Drug form: l 17:57: INJ, ONCE, Stop date: 04/17/18 12:57:00 CDT Cefoxitin 2017-0 No 2 gm, Memoria 04-17 Route: IV, l 17:00: Q6H, Dosing Weight 106.409, kg, Start date: 04/17/18 12:00:00 CDT, Duration: 30 day, Stop date: 05/17/18 6:00:00 CDT, ABX Indication : Surgical Prophylaxi s Cefoxitin 2017-0 No 2 gm, Memoria 04-17 Route: IV, l 17:00: Q6H, Dosing Weight 106.409, kg, Start date: 04/17/18 12:00:00 CDT, Duration: 30 day, Stop date: 05/17/18 6:00:00 CDT, ABX Indication : Surgical Prophylaxi s Cefoxitin 2017-0 No 2 gm, Memoria 04-17 Route: IV, l 17:00: Q6H, Dosing Weight 106.409, kg, Start date: 04/17/18 12:00:00 CDT, Duration: 30 day, Stop date: 05/17/18 6:00:00 CDT, ABX Indication : Surgical Prophylaxi s Cefoxitin 2017-0 No 2 gm, Memoria 04-17 Route: IV, l 17:00: Q6H, Dosing Weight 106.409, kg, Start date: 04/17/18 12:00:00 CDT, Duration: 30 day, Stop date: 05/17/18 6:00:00 CDT, ABX Indication : Surgical Prophylaxi s acetaminoph No Route: IV, Memoria en (ANES) 04-17 Drug form: l 16:52: INJ, ONCE, Stop date: 04/17/18 11:52:00 CDT acetaminoph No Route: IV, Memoria en (ANES) 04-17 Drug form: l 16:52: INJ, ONCE, Stop date: 04/17/18 11:52:00 CDT acetaminoph No Route: IV, Memoria en (ANES) 04-17 Drug form: l 16:52: INJ, ONCE, Stop date: 04/17/18 11:52:00 CDT acetaminoph 0 No Route: IV, Memoria en (ANES) 04-17 Drug form: l 16:52: INJ, ONCE, Stop date: 04/17/18 11:52:00 CDT Indocyanine No Notes: Shashi kita Green 04-17 (Same as: l 16:01: Cardio Hominy 00 Green) Indocyanine 0 No Notes: Shashi kita Green 04-17 (Same as: l 16:01: Cardio Hominy 00 Green) Indocyanine No Notes: Shashi kita Green 04-17 (Same as: l 16:01: Cardio Hominy 00 Green) Indocyanine No Notes: Shashi kita Green 04-17 (Same as: l 16:01: Cardio Vijay 00 Green) ketAMINE No Route: IV, Mem oria (ANES) 04-17 Drug form: l 15:37: INJ, ONCE, Vijay 00 Stop date: 04/17/18 10:37:00 CDT ketAMINE No Route: IV, Mem oria (ANES) 04-17 Drug form: l 15:37: INJ, ONCE, Stop date: 04/17/18 10:37:00 CDT ketAMINE No Route: IV, Mem oria (ANES) 04-17 Drug form: l 15:37: INJ, ONCE, Stop date: 04/17/18 10:37:00 CDT ketAMINE 0 No Route: IV, Mem oria (ANES) 04-17 Drug form: l 15:37: INJ, ONCE, Stop date: 04/17/18 10:37:00 CDT metroNIDAZO 0 No Route: IV, Memoria LE (ANES) 04-17 Drug form: l 14:42: INJ, ONCE, Stop date: 04/17/18 9:42:00 CDT cefOXitin 0 No Route: IV, Me moria (ANES) 04-17 Drug form: l 14:42: INJ, ONCE, Stop date: 04/17/18 9:42:00 CDT metroNIDAZO 0 No Route: IV, Memoria LE (ANES) 04-17 Drug form: l 14:42: INJ, ONCE, Stop date: 04/17/18 9:42:00 CDT cefOXitin 0 No Route: IV, Me moria (ANES) 04-17 Drug form: l 14:42: INJ, ONCE, Stop date: 04/17/18 9:42:00 CDT metroNIDAZO 2017-0 No Route: IV, Memoria LE (ANES) 04-17 Drug form: l 14:42: INJ, ONCE, Stop date: 04/17/18 9:42:00 CDT cefOXitin 2017-0 No Route: IV, Me moria (ANES) 04-17 Drug form: l 14:42: INJ, ONCE, Stop date: 04/17/18 9:42:00 CDT metroNIDAZO 2017-0 No Route: IV, Memoria LE (ANES) 04-17 Drug form: l 14:42: INJ, ONCE, Stop date: 04/17/18 9:42:00 CDT cefOXitin 2017-0 No Route: IV, Me moria (ANES) 04-17 Drug form: l 14:42: INJ, ONCE, Stop date: 04/17/18 9:42:00 CDT propofol 2017-0 No Route: IV, Mem oria (ANES) 04-17 Drug form: l 14:37: INJ, ONCE, Stop date: 04/17/18 9:37:00 CDT rocuronium 2017-0 No Route: IV, M emoria (ANES) 04-17 Drug form: l 14:37: INJ, ONCE, Stop date: 04/17/18 9:37:00 CDT lidocaine 2017-0 No Route: IV, Me moria (ANES) 04-17 Drug form: l 14:37: INJ, ONCE, Stop date: 04/17/18 9:37:00 CDT propofol 2018-0 No Route: IV, Mem oria (ANES) 04-17 Drug form: l 14:37: INJ, ONCE, Stop date: 04/17/18 9:37:00 CDT rocuronium 2017-0 No Route: IV, M emoria (ANES) 04-17 Drug form: l 14:37: INJ, ONCE, Stop date: 04/17/18 9:37:00 CDT lidocaine 2017-0 No Route: IV, Me moria (ANES) 04-17 Drug form: l 14:37: INJ, ONCE, Hominy 00 Stop date: 04/17/18 9:37:00 CDT propofol 2018-0 No Route: IV, Mem oria (ANES) 04-17 Drug form: l 14:37: INJ, ONCE, Hominy Stop date: 04/17/18 9:37:00 CDT rocuronium 2018-0 No Route: IV, Igor emoria (ANES) 04-17 Drug form: l 14:37: INJ, ONCE, Hominy Stop date: 04/17/18 9:37:00 CDT lidocaine 2018-0 No Route: IV, Me moria (ANES) 04-17 Drug form: l 14:37: INJ, ONCE, Hominy 00 Stop date: 04/17/18 9:37:00 CDT propofol 2018-0 No Route: IV, Mem oria (ANES) 04-17 Drug form: l 14:37: INJ, ONCE, Vijay 00 Stop date: 04/17/18 9:37:00 CDT rocuronium 2018-0 No Route: IV, Igor emoria (ANES) 04-17 Drug form: l 14:37: INJ, ONCE, Hominy 00 Stop date: 04/17/18 9:37:00 CDT lidocaine 2018-0 No Route: IV, Me moria (ANES) 04-17 Drug form: l 14:37: INJ, ONCE, Hominy Stop date: 04/17/18 9:37:00 CDT midazolam 2018-0 No Route: IV, Me moria (ANES) 04-17 Drug form: l 14:22: SOLN, Hominy 00 ONCE, Stop date: 04/17/18 9:22:00 CDT midazolam 2018-0 No Route: IV, Me moria (ANES) 04-17 Drug form: l 14:22: SOLN, Hominy 00 ONCE, Stop date: 04/17/18 9:22:00 CDT midazolam 2018-0 No Route: IV, Me moria (ANES) 04-17 Drug form: l 14:22: SOLN, Hominy 00 ONCE, Stop date: 04/17/18 9:22:00 CDT midazolam 2018-0 No Route: IV, Me moria (ANES) 04-17 Drug form: l 14:22: SOLN, Hominy 00 ONCE, Stop date: 04/17/18 9:22:00 CDT dexmedetomi 0 No Route: IV, Memoria dine (ANES) 04-17 Drug form: l 200 13:11: INJ, Start Hominy microgram date: 04/17/18 8:11:00 CDT, Stop date: 04/17/18 9:11:00 CDT ketAMINE No Route: IV, Mem oria (ANES) 10 04-17 Drug form: l mg 13:11: INJ, Start Hominy date: 04/17/18 8:11:00 CDT, Stop date: 04/17/18 9:11:00 CDT dexmedetomi 0 No Route: IV, Memoria dine (ANES) 04-17 Drug form: l 200 13:11: INJ, Start Vijay microgram date: 04/17/18 8:11:00 CDT, Stop date: 04/17/18 9:11:00 CDT ketAMINE No Route: IV, Mem oria (ANES) 10 04-17 Drug form: l mg 13:11: INJ, Start Vijay date: 04/17/18 8:11:00 CDT, Stop date: 04/17/18 9:11:00 CDT dexmedetomi 0 No Route: IV, Memoria dine (ANES) 04-17 Drug form: l 200 13:11: INJ, Start Vijay microgram date: 04/17/18 8:11:00 CDT, Stop date: 04/17/18 9:11:00 CDT ketAMINE No Route: IV, Mem oria (ANES) 10 04-17 Drug form: l mg 13:11: INJ, Start Hominy date: 04/17/18 8:11:00 CDT, Stop date: 04/17/18 9:11:00 CDT dexmedetomi 0 No Route: IV, Memoria dine (ANES) 04-17 Drug form: l 200 13:11: INJ, Start Vijay microgram date: 04/17/18 8:11:00 CDT, Stop date: 04/17/18 9:11:00 CDT ketAMINE 0 No Route: IV, Mem oria (ANES) 10 04-17 Drug form: l mg 13:11: INJ, Start date: 04/17/18 8:11:00 CDT, Stop date: 04/17/18 9:11:00 CDT Lactated 2017-0 No Route: IV, Mem oria Ringers 28 Total l Injection 13:00: Volume: Veronica nn IV (ANES) 00 1,000, 1000 mL Start date: 04/17/18 8:00:00 CDT, Stop date: 04/17/18 9:00:00 CDT Lactated 2017-0 No Route: IV, Mem oria Ringers 928 Total l Injection 13:00: Volume: Veronica nn IV (ANES) 00 1,000, 1000 mL Start date: 04/17/18 8:00:00 CDT, Stop date: 04/17/18 9:00:00 CDT Lactated 2017-0 No Route: IV, Mem oria Ringers 9-28 Total l Injection 13:00: Volume: Veronica nn IV (ANES) 00 1,000, 1000 mL Start date: 04/17/18 8:00:00 CDT, Stop date: 04/17/18 9:00:00 CDT Lactated 0 No Route: IV, Mem oria Ringers 28 Total l Injection 13:00: Volume: Veronica nn IV (ANES) 00 1,000, 1000 mL Start date: 04/17/18 8:00:00 CDT, Stop date: 04/17/18 9:00:00 CDT Exparel 2017- No Notes: Memoria 04-17 (Same as: l 12:00: Exparel) NOT FOR IV use Postoperat susanna analgesia: Infiltrati on (local): Dose is based on surgical site and volume required to cover the area (in general, the maximum total dose is 266 mg). Bunionecto my: 7 mL into the tissues surroundin g the osteotomy and 1 mL into the subcutaneo us tissue of the surgical site (total dose = 8 mL [106 mg]) Hemorrhoid ectomy: 30 mL (20 mL vial diluted with 10 mL NS) divided and administer ed as 6 injections of 5 mL each (total dose = 30 mL [266 mg]) Flagyl 2018-0 No Notes: Memoria 04-17 (Same as: l 12:00: Flagyl) Avoid alcohol. are No Notes: Memoria 04-17 (Same as: l 12:: Exparel) NOT FOR IV use Postoperat susanna analgesia: Infiltrati on (local): Dose is based on surgical site and volume required to cover the area (in general, the maximum total dose is 266 mg). Bunionecto my: 7 mL into the tissues surroundin g the osteotomy and 1 mL into the subcutaneo us tissue of the surgical site (total dose = 8 mL [106 mg]) Hemorrhoid ectomy: 30 mL (20 mL vial diluted with 10 mL NS) divided and administer ed as 6 injections of 5 mL each (total dose = 30 mL [266 mg]) [facility]: Memoria 04-17 (Same as: l 12:00: Flagyl) Avoid alcohol. are No Notes: Memoria 04-17 (Same as: l 12:: Expare) NOT FOR IV use Postoperat susanna analgesia: Infiltrati on (local): Dose is based on surgical site and volume required to cover the area (in general, the maximum total dose is 266 mg). Bunionecto my: 7 mL into the tissues surroundin g the osteotomy and 1 mL into the subcutaneo us tissue of the surgical site (total dose = 8 mL [106 mg]) Hemorrhoid ectomy: 30 mL (20 mL vial diluted with 10 mL NS) divided and administer ed as 6 injections of 5 mL each (total dose = 30 mL [266 mg]) [facility] No Notes: Memoria 04-17 (Same as: l 12:00: Flagyl) Avoid alcohol. are No Notes: Memoria 04-17 (Same as: l 12:: Expare) NOT FOR IV use Postoperat susanna analgesia: Infiltrati on (local): Dose is based on surgical site and volume required to cover the area (in general, the maximum total dose is 266 mg). Bunionecto my: 7 mL into the tissues surroundin g the osteotomy and 1 mL into the subcutaneo us tissue of the surgical site (total dose = 8 mL [106 mg]) Hemorrhoid ectomy: 30 mL (20 mL vial diluted with 10 mL NS) divided and administer ed as 6 injections of 5 mL each (total dose = 30 mL [266 mg]) Flagyl No Notes: Memoria 04-17 (Same as: l 12:00: Flagyl) Vijay Avoid alcohol. IC-Green No Notes: Memoria 04-17 (Same as: l 11:29: Cardio Vijay 00 Green) IC-Green No Notes: Memoria 04-17 (Same as: l 11:29: Cardio Vijay 00 Green) IC-Green No Notes: Memoria 04-17 (Same as: l 11:29: Cardio Hominy 00 Green) IC-Green No Notes: Memoria 04-17 (Same as: l 11:29: Cardio Vijay 00 Green) Calcium No 1,000 mL, Memor ia Chloride 04-17 Rate: 25 l 0.0014 11:06: ml/hr, Hominy MEQ/ML / 00 Infuse Potassium over: 40 Chloride hr, Route: 0.004 IV, Dosing MEQ/ML / Weight Sodium 106.409 Chloride kg, Total 0.103 Volume: MEQ/ML / 1,000, Sodium Start Lactate date: 0.028 04/17/18 MEQ/ML 6:06:00 Injectable CDT, Solution Duration: 30 day, Stop date: 05/17/18 6:05:00 CDT, 2.34, m2 Calcium No 1,000 mL, Memor ia Chloride 04-17 Rate: 25 l 0.0014 11:06: ml/hr, Hominy MEQ/ML / 00 Infuse Potassium over: 40 Chloride hr, Route: 0.004 IV, Dosing MEQ/ML / Weight Sodium 106.409 Chloride kg, Total 0.103 Volume: MEQ/ML / 1,000, Sodium Start Lactate date: 0.028 04/17/18 MEQ/ML 6:06:00 Injectable CDT, Solution Duration: 30 day, Stop date: 05/17/18 6:05:00 CDT, 2.34, m2 Calcium 2018-0 No 1,000 mL, Memor ia Chloride 04-17 Rate: 25 l 0.0014 11:06: ml/hr, Hominy MEQ/ML / 00 Infuse Potassium over: 40 Chloride hr, Route: 0.004 IV, Dosing MEQ/ML / Weight Sodium 106.409 Chloride kg, Total 0.103 Volume: MEQ/ML / 1,000, Sodium Start Lactate date: 0.028 04/17/18 MEQ/ML 6:06:00 Injectable CDT, Solution Duration: 30 day, Stop date: 05/17/18 6:05:00 CDT, 2.34, m2 Calcium 2017- No 1,000 mL, Memor ia Chloride 04-17 Rate: 25 l 0.0014 11:06: ml/hr, Vijay MEQ/ML / 00 Infuse Potassium over: 40 Chloride hr, Route: 0.004 IV, Dosing MEQ/ML / Weight Sodium 106.409 Chloride kg, Total 0.103 Volume: MEQ/ML / 1,000, Sodium Start Lactate date: 0.028 04/17/18 MEQ/ML 6:06:00 Injectable CDT, Solution Duration: 30 day, Stop date: 05/17/18 6:05:00 CDT, 2.34, m2 Metronidazo No 500 mg = 1 Memoria le 500 MG 8-08 tab, PO, l Oral Tablet 20:40: Q8H, X 10 H ermann [Flagyl] day, # 30 tab, 0 Refill(s), Pharmacy: [facility] [id number] Ciprofloxac No 500 mg = 1 Memoria in 500 MG 8-08 tab, PO, l Oral Tablet 20:40: Q12H, X 10 Vijay [Cipro] day, # 20 tab, 0 Refill(s), [facility] [id number] Metronidazo No 500 mg = 1 Memoria le 500 MG 8-08 tab, PO, l Oral Tablet 20:40: Q8H, X 10 H ermann [Flagyl] 00 day, # 30 tab, 0 Refill(s), Pharmacy: [facility] [id number] Ciprofloxac No 500 mg = 1 Memoria in 500 MG 8-08 tab, PO, l Oral Tablet 20:40: Q12H, X 10 Hominy [Cipro] 00 day, # 20 tab, 0 Refill(s), Pharmacy: [facility] Metronidazo No 500 mg = 1 Memoria le 500 MG 8-08 tab, PO, l Oral Tablet 20:40: Q8H, X 10 H ermann [Flagyl] 00 day, # 30 tab, 0 Refill(s), Pharmacy: [place] [id number] Ciprofloxac No 500 mg = 1 Memoria in 500 MG 8-08 tab, PO, l Oral Tablet 20:40: Q12H, X 10 Hominy [Cipro] 00 day, # 20 tab, 0 Refill(s), Pharmacy: [place] [id number] Metronidazo No 500 mg = 1 Memoria le 500 MG 8-08 tab, PO, l Oral Tablet 20:40: Q8H, X 10 H ermann [Flagyl] 00 day, # 30 tab, 0 Refill(s), Pharmacy: [place] [id number] Ciprofloxac No 500 mg = 1 Memoria in 500 MG 8-08 tab, PO, l Oral Tablet 20:40: Q12H, X 10 Vijay [Cipro] 00 day, # 20 tab, 0 Refill(s), Pharmacy: [place] [id number] Tylenol No Notes: Max Shashi kita 8-08 acetaminop l 13:05: hen = Hominy 00 4000mg/day (4 gm/day). (Same as: Tylenol) Tylenol No Notes: Max Shashi kita 8-08 acetaminop l 13:05: hen = Vijay 00 4000mg/day (4 gm/day). (Same as: Tylenol) Tylenol No Notes: Max Shashi kita 8-08 acetaminop l 13:05: hen = Vijay 00 4000mg/day (4 gm/day). (Same as: Tylenol) Tylenol No Notes: Max Shashi kita 8-08 acetaminop l 13:05: hen = Vijay 00 4000mg/day (4 gm/day). (Same as: Tylenol) Flagyl No Notes: Memoria 8-06 (Same as: l 15:00: Flagyl) Hominy Avoid alcohol. Flagyl No Notes: Memoria 02-23 (Same as: l 15:00: Flagyl) Vijay Avoid alcohol. Flagyl No Notes: Memoria 02-23 (Same as: l 15:00: Flagyl) Vijay Avoid alcohol. Flagyl No Notes: Memoria 02-23 (Same as: l 15:00: Flagyl) Vijay Avoid alcohol. Zofran No Notes: Memoria 02-23 (Same as: l 14:06: Zofran) Vijay 00 MEDICATION WASTE Product Size: 4 mg Product Wasted: ___ mg Zofran 2017-0 No Notes: Memoria 02-23 (Same as: l 14:06: Zofran) Hominy 00 MEDICATION WASTE Product Size: 4 mg Product Wasted: ___ mg Zofran 0 No Notes: Memoria 02-23 (Same as: l 14:06: Zofran) Hominy 00 MEDICATION WASTE Product Size: 4 mg Product Wasted: ___ mg Zofran 0 No Notes: Memoria 02-23 (Same as: l 14:06: Zofran) Vijay 00 MEDICATION WASTE Product Size: 4 mg Product Wasted: ___ mg Morphine 2018-0 No 2 mg, 1 Memori a 8-06 mL, Route: l 13:46: IVP, Drug form: SOLN, Q2H, Dosing Weight 113.636, kg, PRN Pain Score 4-6, Start date: 02/23/18 8:46:00 CDT, Duration: 30 day, Stop date: 03/25/18 8:45:00 CDT Morphine 2018-0 No 2 mg, 1 Memori a 8-06 mL, Route: l 13:46: IVP, Drug form: SOLN, Q2H, Dosing Weight 113.636, kg, PRN Pain Score 4-6, Start date: 02/23/18 8:46:00 CDT, Duration: 30 day, Stop date: 03/25/18 8:45:00 CDT Morphine 2018-0 No 2 mg, 1 Memori a 8-06 mL, Route: l 13:46: IVP, Drug Vijay 00 form: SOLN, Q2H, Dosing Weight 113.636, kg, PRN Pain Score 4-6, Start date: 02/23/18 8:46:00 CDT, Duration: 30 day, Stop date: 03/25/18 8:45:00 CDT Morphine 2018-0 No 2 mg, 1 Memori a 8-06 mL, Route: l 13:46: IVP, Drug Hominy 00 form: SOLN, Q2H, Dosing Weight 113.636, kg, PRN Pain Score 4-6, Start date: 02/23/18 8:46:00 CDT, Duration: 30 day, Stop date: 03/25/18 8:45:00 CDT Cipro 2018-0 No Notes: Do Memoria 8-06 not l 13:00: refrigerat Hominy 00 e Cipro 2018-0 No Notes: Do Memoria 8-06 not l 13:00: refrigerat Hominy 00 e Cipro 2018-0 No Notes: Do Memoria 8-06 not l 13:00: refrigerat Hominy 00 e Cipro 2018-0 No Notes: Do Memoria 8-06 not l 13:00: refrigerat Hominy 00 e NS (Bolus) 2018-0 No 1,000 mL, Me moria IV 8-06 1,000 l 10:54: ml/hr, Vijay 00 Infuse Over: 1 hr, Route: IV, 1,000, Drug form: INJ, ONCE, Priority: STAT, Dosing Weight 113.636 kg, Start date: 02/23/18 5:54:00 CDT, Stop date: 02/23/18 5:54:00 CDT NS (Bolus) 2018-0 No 1,000 mL, Me moria IV 8-06 1,000 l 10:54: ml/hr, Hominy 00 Infuse Over: 1 hr, Route: IV, 1,000, Drug form: INJ, ONCE, Priority: STAT, Dosing Weight 113.636 kg, Start date: 02/23/18 5:54:00 CDT, Stop date: 02/23/18 5:54:00 CDT NS (Bolus) 2018-0 No 1,000 mL, Me moria IV 8- 1,000 l 10:54: ml/hr, Vijay 00 Infuse Over: 1 hr, Route: IV, 1,000, Drug form: INJ, ONCE, Priority: STAT, Dosing Weight 113.636 kg, Start date: 02/23/18 5:54:00 CDT, Stop date: 02/23/18 5:54:00 CDT NS (Bolus) 2018-0 No 1,000 mL, Me moria IV 8- 1,000 l 10:54: ml/hr, Hominy 00 Infuse Over: 1 hr, Route: IV, 1,000, Drug form: INJ, ONCE, Priority: STAT, Dosing Weight 113.636 kg, Start date: 02/23/18 5:54:00 CDT, Stop date: 02/23/18 5:54:00 CDT D5W 2017-0 No 1,000 mL, Mem oria 1,000 mL 8 Rate: 125 l 10:53: ml/hr, Hominy 00 Infuse over: 8 hr, Route: IV, Dosing Weight 113.636 kg, Total Volume: 1,000, Start date: 02/23/18 5:53:00 CDT, Duration: 30 day, Stop date: 03/25/18 5:52:00 CDT, 2.42, m2 D5W 2018-0 No 1,000 mL, Mem oria 1,000 mL 8 Rate: 125 l 10:53: ml/hr, Vijay 00 Infuse over: 8 hr, Route: IV, Dosing Weight 113.636 kg, Total Volume: 1,000, Start date: 02/23/18 5:53:00 CDT, Duration: 30 day, Stop date: 03/25/18 5:52:00 CDT, 2.42, m2 D5W 2017-0 No 1,000 mL, Mem oria 1,000 mL 8 Rate: 125 l 10:53: ml/hr, Hominy 00 Infuse over: 8 hr, Route: IV, Dosing Weight 113.636 kg, Total Volume: 1,000, Start date: 02/23/18 5:53:00 CDT, Duration: 30 day, Stop date: 03/25/18 5:52:00 CDT, 2.42, m2 D5W 1/2NS 2018-0 No 1,000 mL, Mem oria 1,000 mL 02-23 Rate: 125 l 10:53: ml/hr, Hominy 00 Infuse over: 8 hr, Route: IV, Dosing Weight 113.636 kg, Total Volume: 1,000, Start date: 02/23/18 5:53:00 CDT, Duration: 30 day, Stop date: 03/25/18 5:52:00 CDT, 2.42, m2 Fentanyl 2018-0 No 50 Memoria 8-06 microgram, l 10:22: Route: Hominy 00 IVP, ONCE, Dosing Weight 113.636, kg, Priority: STAT, Start date: 02/23/18 5:22:00 CDT, Stop date: 02/23/18 5:22:00 CDT Fentanyl 2018-0 No 50 Memoria 8-06 microgram, l 10:22: Route: Vijay 00 IVP, ONCE, Dosing Weight 113.636, kg, Priority: STAT, Start date: 02/23/18 5:22:00 CDT, Stop date: 02/23/18 5:22:00 CDT Fentanyl 2018-0 No 50 Memoria 8-06 microgram, l 10:22: Route: Hominy 00 IVP, ONCE, Dosing Weight 113.636, kg, Priority: STAT, Start date: 02/23/18 5:22:00 CDT, Stop date: 02/23/18 5:22:00 CDT Fentanyl 2018-0 No 50 Memoria 8-06 microgram, l 10:22: Route: Vijay 00 IVP, ONCE, Dosing Weight 113.636, kg, Priority: STAT, Start date: 02/23/18 5:22:00 CDT, Stop date: 02/23/18 5:22:00 CDT Zosyn 2018-0 No 3.375 gm, Memoria 8-06 Route: l 09:50: IVPB, Hominy 00 ONCE, Dosing Weight 113.636, kg, Priority: STAT, Start date: 02/23/18 4:50:00 CDT, Stop date: 02/23/18 4:50:00 CDT, ABX Indication : Infectious Diarrhea Zosyn 2018-0 No 3.375 gm, Memoria 8 Route: l 09:50: IVPB, Vijay 00 ONCE, Dosing Weight 113.636, kg, Priority: STAT, Start date: 02/23/18 4:50:00 CDT, Stop date: 02/23/18 4:50:00 CDT, ABX Indication : Infectious Diarrhea Zosyn 2018-0 No 3.375 gm, Memoria 8- Route: l 09:50: IVPB, Hominy 00 ONCE, Dosing Weight 113.636, kg, Priority: STAT, Start date: 02/23/18 4:50:00 CDT, Stop date: 02/23/18 4:50:00 CDT, ABX Indication : Infectious Diarrhea Zosyn 2018-0 No 3.375 gm, Memoria 8- Route: l 09:50: IVPB, Vijay 00 ONCE, Dosing Weight 113.636, kg, Priority: STAT, Start date: 02/23/18 4:50:00 CDT, Stop date: 02/23/18 4:50:00 CDT, ABX Indication : Infectious Diarrhea Reglan 2018-0 No 10 mg, Memoria 8 Route: l 04:32: IVP, Drug Vijay 00 form: INJ, ONCE, Dosing Weight 113.636, kg, Priority: STAT, Start date: 02/22/18 23:32:00 CDT, Stop date: 02/22/18 23:32:00 CDT Fentanyl 2018-0 No 50 Memoria 8-06 microgram, l 04:32: Route: Vijay 00 IVP, ONCE, Dosing Weight 113.636, kg, Priority: STAT, Start date: 02/22/18 23:32:00 CDT, Stop date: 02/22/18 23:32:00 CDT Reglan 2018-0 No 10 mg, Memoria 8- Route: l 04:32: IVP, Drug Hominy 00 form: INJ, ONCE, Dosing Weight 113.636, kg, Priority: STAT, Start date: 02/22/18 23:32:00 CDT, Stop date: 02/22/18 23:32:00 CDT Fentanyl 2018-0 No 50 Memoria 8-06 microgram, l 04:32: Route: Hominy 00 IVP, ONCE, Dosing Weight 113.636, kg, Priority: STAT, Start date: 02/22/18 23:32:00 CDT, Stop date: 02/22/18 23:32:00 CDT Reglan 2018-0 No 10 mg, Memoria 8-06 Route: l 04:32: IVP, Drug Hominy 00 form: INJ, ONCE, Dosing Weight 113.636, kg, Priority: STAT, Start date: 02/22/18 23:32:00 CDT, Stop date: 02/22/18 23:32:00 CDT Fentanyl 2018-0 No 50 Memoria 8-06 microgram, l 04:32: Route: Hominy 00 IVP, ONCE, Dosing Weight 113.636, kg, Priority: STAT, Start date: 02/22/18 23:32:00 CDT, Stop date: 02/22/18 23:32:00 CDT Reglan 2018-0 No 10 mg, Memoria 8-06 Route: l 04:32: IVP, Drug Hominy 00 form: INJ, ONCE, Dosing Weight 113.636, kg, Priority: STAT, Start date: 02/22/18 23:32:00 CDT, Stop date: 02/22/18 23:32:00 CDT Fentanyl 2018-0 No 50 Memoria 8-06 microgram, l 04:32: Route: Vijay 00 IVP, ONCE, Dosing Weight 113.636, kg, Priority: STAT, Start date: 02/22/18 23:32:00 CDT, Stop date: 02/22/18 23:32:00 CDT tramadol 2016-07 Yes 50 mg = 1 Shashi kita hydrochlori 2-22 tab, PO, l de 50 MG 20:47: BID, X 15 Herm maxx Oral Tablet 00 day, # 24 tab, 0 Refill(s) ondansetron 2016-07 Yes 4 mg = 1 Me moria 4 mg oral 2-22 tab, PO, l tablet 20:47: BID, # 10 Dylon n 00 tab, 0 Refill(s), Pharmacy: [facility] [id number] pantoprazol 2016-07 Yes 40 mg = 1 M emoria e 40 MG 2-22 tab, PO, l Enteric 20:47: Daily, # Dylon n Coated 00 30 tab, 0 Tablet Refill(s), [Protonix] Pharmacy: [place] [id number] tramadol 2016-07 Yes 50 mg = 1 Shashi kita hydrochlori 2-22 tab, PO, l de 50 MG 20:47: BID, X 15 Herm maxx Oral Tablet 00 day, # 24 tab, 0 Refill(s) ondansetron 2016-07 Yes 4 mg = 1 Me moria 4 mg oral 2-22 tab, PO, l tablet 20:47: BID, # 10 Dylon n 00 tab, 0 Refill(s), Pharmacy: [place] [id number] pantoprazol 2016-07 Yes 40 mg = 1 M emoria e 40 MG 2-22 tab, PO, l Enteric 20:47: Daily, # Dylon n Coated 00 30 tab, 0 Tablet Refill(s), [Protonix] Pharmacy: [place] [id number] tramadol 2016-07 Yes 50 mg = 1 Shashi kita hydrochlori 2-22 tab, PO, l de 50 MG 20:47: BID, X 15 Herm maxx Oral Tablet 00 day, # 24 tab, 0 Refill(s) ondansetron 2016-07 Yes 4 mg = 1 Me moria 4 mg oral 2-22 tab, PO, l tablet 20:47: BID, # 10 Dylon n 00 tab, 0 Refill(s), Pharmacy: [place] [id number] pantoprazol 2016-07 Yes 40 mg = 1 M emoria e 40 MG 2-22 tab, PO, l Enteric 20:47: Daily, # Dylon n Coated 00 30 tab, 0 Tablet Refill(s), [Protonix] Pharmacy: [place] [id number] tramadol 2016-07 Yes 50 mg = 1 Shashi kita hydrochlori 2-22 tab, PO, l de 50 MG 20:47: BID, X 15 Herm maxx Oral Tablet 00 day, # 24 tab, 0 Refill(s) ondansetron 2016- Yes 4 mg = 1 Me moria 4 mg oral 2-22 tab, PO, l tablet 20:47: BID, # 10 Dylon n 00 tab, 0 Refill(s), Pharmacy: [place] [id number] pantoprazol 2016-07 Yes 40 mg = 1 M emoria e 40 MG 2-22 tab, PO, l Enteric 20:47: Daily, # Dylon n Coated 00 30 tab, 0 Tablet Refill(s), [Protonix] Pharmacy: [facility] [id number] polyethylen 2016-07 No Notes: Shashi kita e glycol 2-22 (polyethyl l 3350 with 16:18: evangelina glycol He rmann electrolyte 00 electrolyt s e solution 4 Liter bottle) (Same as: Golytely, Colyte) polyethylen 2016-07 No Notes: Shashi kita e glycol 2-22 (polyethyl l 3350 with 16:18: evangelina glycol He rmann electrolyte 00 electrolyt s e solution 4 Liter bottle) (Same as: Golytely, Colyte) polyethylen 2016-07 No Notes: Shashi kita e glycol 2-22 (polyethyl l 3350 with 16:18: evangelina glycol He rmann electrolyte 00 electrolyt s e solution 4 Liter bottle) (Same as: Golytely, Colyte) polyethylen 2016-07 No Notes: Shashi kita e glycol 2-22 (polyethyl l 3350 with 16:18: evangelina glycol He rmann electrolyte 00 electrolyt s e solution 4 Liter bottle) (Same as: Golytely, Colyte) Ativan 2016-07 No 0.5 mg, Memoria 2-21 Route: IV, l 15:00: BID, Vijay Dosing Weight 124.688, kg, Start date: 07/10/17 9:00:00 [employer]ACHINE, Duration: 30 day, Stop date: 08/08/17 17:00:00 [employer] Ativan 2016-07 No 0.5 mg, Memoria 2-21 Route: IV, l 15:00: BID, Vijay Dosing Weight 124.688, kg, Start date: 07/10/17 9:00:00 [employer]ACH[employer], Duration: 30 day, Stop date: 08/08/17 17:00:00 [employer] Ativan 2016-07 No 0.5 mg, Memoria 2-21 Route: IV, l 15:00: BID, Hominy Dosing Weight 124.688, kg, Start date: 07/10/17 9:00:00 [employer]ACH[employer], Duration: 30 day, Stop date: 08/08/17 17:00:00 [employer] Ativan 2016-07 No 0.5 mg, Memoria 2-21 Route: IV, l 15:00: BID, Hominy 00 Dosing Weight 124.688, kg, Start date: 07/10/17 9:00:00 [employer]ACH[employer], Duration: 30 day, Stop date: 08/08/17 17:00:00 [employer] Omnipaque 2016-07 Yes Notes: Memori a 300 2-21 (Same l 13:19: as:Omnipaq Hominy 00 ue 300). WASTE: F/P - Black; E - Municipal Trash Bin Omnipaque 2016-07 Yes Notes: Memori a 300 2-21 (Same l 13:19: as:Omnipaq Vijay 00 ue 300). WASTE: F/P - Black; E - Municipal Trash Bin Omnipaque 2016-07 Yes Notes: Memori a 300 2-21 (Same l 13:19: as:Omnipaq Hominy 00 ue 300). WASTE: F/P - Black; E - Municipal Trash Bin Omnipaque 2016-07 Yes Notes: Memori a 300 2-21 (Same l 13:19: as:Omnipaq Vijay 00 ue 300). WASTE: F/P - Black; E - Municipal Trash Bin Pepcid 2016-07 No Notes: Memoria 2-21 (Same as: l 03:00: Pepcid) Vijay 00 Can be dilute in 5-10cc NS IVP: Slow IV push over at least 2 minutes. Pepcid 2016-07 No Notes: Memoria 2-21 (Same as: l 03:00: Pepcid) Hominy 00 Can be dilute in 5-10cc NS IVP: Slow IV push over at least 2 minutes. Pepcid 2016-07 No Notes: Memoria 2-21 (Same as: l 03:00: Pepcid) Hominy 00 Can be dilute in 5-10cc NS IVP: Slow IV push over at least 2 minutes. Pepcid 2016-07 No Notes: Memoria 2-21 (Same as: l 03:00: Pepcid) Hominy 00 Can be dilute in 5-10cc NS IVP: Slow IV push over at least 2 minutes. Ativan 2016-07 No Notes: Memoria 2-21 (Same as: l 01:52: Ativan) Hominy 00 Ativan 2016-07 No Notes: Memoria 2-21 (Same as: l 01:52: Ativan) Hominy 00 Ativan 2016-07 No Notes: Memoria 2-21 (Same as: l 01:52: Ativan) Vijay 00 Ativan 2016-07 No Notes: Memoria 2-21 (Same as: l 01:52: Ativan) Vijay Morphine 2016-07 No 2 mg, 1 Memori a 2-19 mL, Route: l 21:47: IVP, Drug Hominy 00 form: SOLN, Q3H, Dosing Weight 124.688, kg, PRN Pain Score 7-10, Start date: 07/08/17 15:47:00 [employer], Duration: 30 day, Stop date: 08/07/17 15:46:00 [employer] Morphine 2016-07 No 2 mg, 1 Memori a 2-19 mL, Route: l 21:47: IVP, Drug Hominy form: SOLN, Q3H, Dosing Weight 124.688, kg, PRN Pain Score 7-10, Start date: 07/08/17 15:47:00 [employer]ACH[employer], Duration: 30 day, Stop date: 08/07/17 15:46:00 [employer] Morphine 2016-07 No 2 mg, 1 Memori a 2-19 mL, Route: l 21:47: IVP, Drug Vijay 00 form: SOLN, Q3H, Dosing Weight 124.688, kg, PRN Pain Score 7-10, Start date: 07/08/17 15:47:00 [employer]ACH[employer], Duration: 30 day, Stop date: 08/07/17 15:46:00 [employer] Morphine 2016-07 No 2 mg, 1 Memori a 2-19 mL, Route: l 21:47: IVP, Drug Vijay 00 form: SOLN, Q3H, Dosing Weight 124.688, kg, PRN Pain Score 7-10, Start date: 07/08/17 15:47:00 [employer], Duration: 30 day, Stop date: 08/07/17 15:46:00 [employer] Flagyl 2016-07 No Notes: Memoria 2-19 (Same as: l 10:00: Flagyl) Hominy 00 Avoid alcohol. Levaquin 2016-07 No Notes: Memoria 2-19 (Same l 10:00: as:Levaqui Vijay 00 n) Flagyl 2016-07 No Notes: Memoria 2-19 (Same as: l 10:00: Flagyl) Hominy 00 Avoid alcohol. Levaquin 2016-07 No Notes: Memoria 2-19 (Same l 10:00: as:Levaqui Vijay 00 n) Flagyl 2016-07 No Notes: Memoria 2-19 (Same as: l 10:00: Flagyl) Vijay 00 Avoid alcohol. Levaquin 2016-07 No Notes: Memoria 2-19 (Same l 10:00: as:Levaqui Hominy 00 n) Flagyl 2016-07 No Notes: Memoria 2-19 (Same as: l 10:00: Flagyl) Hominy 00 Avoid alcohol. Levaquin 2016-07 No Notes: Memoria 2-19 (Same l 10:00: as:Levaqui n) Saline 2016-07 No Notes: Memoria Flush 0.9% - (Same as: l 09:46: BD Posiflush) Ondansetron 2016-07 No Notes: Shashi kita 2-19 (Same as: l 09:46: Zofran) MEDICATION WASTE Product Size: 4 mg Product Wasted: ___ mg Morphine 2016-07 No 2 mg, 1 Memori a 2-19 mL, Route: l 09:46: IVP, Drug form: SOLN, Q4H, Dosing Weight 124.688, kg, PRN Pain Score 7-10, Start date: 07/08/17 3:46:00 [employer], Duration: 30 day, Stop date: 08/07/17 3:45:00 [employer] Lactated 2016-07 No 1,000 mL, Shashi kita Ringers IV 09-08 Rate: 125 l 1,000 mL 09:46: ml/hr, Infuse over: 8 hr, Route: IV, Dosing Weight 124.688 kg, Total Volume: 1,000, Start date: 07/08/17 3:46:00 [employer]ACH[employer], Duration: 30 day, Stop date: 08/07/17 3:45:00 [employer]ACH[employer], 2.54, m2 Acetaminoph 2016-07 No Notes: Do M emoria en - not exceed l 09:46: 4 gm/day. Vijay 00 (Same as: Tylenol) Acetaminoph 2016-07 No Notes: Shashi kita en 325 MG / 2-19 (Same as: l Hydrocodone 09:46: [place] Veronica nn Bitartrate 00 325/5) Do 5 MG Oral not exceed Tablet 4gm/day of acetaminop hen. Saline 2016-07 No Notes: Memoria Flush 0.9% 2-19 (Same as: l 09:46: BD Hominy 00 Posiflush) Ondansetron 2016-07 No Notes: Shashi kita 2-19 (Same as: l 09:46: Zofran) Hominy MEDICATION WASTE Product Size: 4 mg Product Wasted: ___ mg Morphine 2016-07 No 2 mg, 1 Memori a 2-19 mL, Route: l 09:46: IVP, Drug Vijay 00 form: SOLN, Q4H, Dosing Weight 124.688, kg, PRN Pain Score 7-10, Start date: 07/08/17 3:46:00 [employer]ACH[employer], Duration: 30 day, Stop date: 08/07/17 3:45:00 [employer]ACH[employer] Lactated 2016-07 No 1,000 mL, Shashi kita Ringers IV 2-19 Rate: 125 l 1,000 mL 09:46: ml/hr, Infuse over: 8 hr, Route: IV, Dosing Weight 124.688 kg, Total Volume: 1,000, Start date: 07/08/17 3:46:00 [employer]ACH[employer], Duration: 30 day, Stop date: 08/07/17 3:45:00 D[employer]ACHINE, 2.54, m2 Acetaminoph 2016-07 No Notes: Do M emoria en 2-19 not exceed l 09:46: 4 gm/day. Vijay 00 (Same as: Tylenol) Acetaminoph 2016-07 No Notes: Shashi kita en 325 MG / 2-19 (Same as: l Hydrocodone 09:46: [place] Veronica nn Bitartrate 00 325/5) Do 5 MG Oral not exceed Tablet 4gm/day of acetaminop hen. Saline 2016-07 No Notes: Memoria Flush 0.9% 2-19 (Same as: l 09:46: BD Hominy 00 Posiflush) Ondansetron 2016-07 No Notes: Shashi kita 2-19 (Same as: l 09:46: Zofran) MEDICATION WASTE Product Size: 4 mg Product Wasted: ___ mg Morphine 2016-07 No 2 mg, 1 Memori a 2-19 mL, Route: l 09:46: IVP, Drug form: SOLN, Q4H, Dosing Weight 124.688, kg, PRN Pain Score 7-10, Start date: 07/08/17 3:46:00 [employer]ACH[employer], Duration: 30 day, Stop date: 08/07/17 3:45:00 [employer]ACH[employer] Lactated 2016-07 No 1,000 mL, Shashi kita Ringers IV - Rate: 125 l 1,000 mL 09:46: ml/hr, Infuse over: 8 hr, Route: IV, Dosing Weight 124.688 kg, Total Volume: 1,000, Start date: 07/08/17 3:46:00 [employer]ACHINE, Duration: 30 day, Stop date: 08/07/17 3:45:00 [employer]ACHINE, 2.54, m2 Acetaminoph 2016-07 No Notes: Do M emoria en 2-19 not exceed l 09:46: 4 gm/day. Vijay (Same as: Tylenol) Acetaminoph 2016-07 No Notes: Shashi kita en 325 MG / 2-19 (Same as: l Hydrocodone 09:46: [place] Veronica nn Bitartrate 00 325/5) Do 5 MG Oral not exceed Tablet 4gm/day of acetaminop hen. Saline 2016-07 No Notes: Memoria Flush 0.9% 2-19 (Same as: l 09:46: BD Vijay 00 Posiflush) Ondansetron 2016-07 No Notes: Shashi kita 2-19 (Same as: l 09:46: Zofran) Hominy 00 MEDICATION WASTE Product Size: 4 mg Product Wasted: ___ mg Morphine 2016-07 No 2 mg, 1 Memori a 2-19 mL, Route: l 09:46: IVP, Drug form: SOLN, Q4H, Dosing Weight 124.688, kg, PRN Pain Score 7-10, Start date: 07/08/17 3:46:00 [employer]ACHINE, Duration: 30 day, Stop date: 08/07/17 3:45:00 [employer]ACHINE Lactated 2016-07 No 1,000 mL, Shashi kita Ringers IV 09-08 Rate: 125 l 1,000 mL 09:46: ml/hr, Infuse over: 8 hr, Route: IV, Dosing Weight 124.688 kg, Total Volume: 1,000, Start date: 07/08/17 3:46:00 [employer]ACHINE, Duration: 30 day, Stop date: 08/07/17 3:45:00 D[employer]ACHINE, 2.54, m2 Acetaminoph 2016-07 No Notes: Do M emoria en - not exceed l 09:46: 4 gm/day. Hominy (Same as: Tylenol) Acetaminoph 2016-07 No Notes: Shashi kita en 325 MG / 09-08 (Same as: l Hydrocodone 09:46: [place] Veronica nn Bitartrate 00 325/5) Do 5 MG Oral not exceed Tablet 4gm/day of acetaminop hen. Zantac 150 2016-07 No 150 mg, Shashi kita 2-19 PO, TID, 0 l 07:57: Refill(s) Zantac 150 2016-07 No 150 mg, Shashi kita 2-19 PO, TID, 0 l 07:57: Refill(s) Vijay 00 Zantac 150 2016-07 No 150 mg, Shashi kita 2-19 PO, TID, 0 l 07:57: Refill(s) Zantac 150 2016-07 No 150 mg, Shashi kita 2-19 PO, TID, 0 l 07:57: Refill(s) Immunizations Ordered Filled Immunization Date Status Comments [facility] e Immunization Name Name Human Rabies 2018-12-27 Completed [facility]AB[facility] Human Rabies 2018-12-22 Completed [facility] o f Vaccine From 00:00:00 [facility] Chicken Fibroblast Branch Culture (RABAVERT) Human Rabies 2018-12-20 Completed [facility] o [facility] Fibroblast [facility] Culture (RABAVERT) Vital Signs Vital Name Observation Time Observation Value Comments Source Systolic blood 2022-12-19 16:38:00 135 mm[Hg] [facility]iver s[facility] of pressure [facility] Diastolic blood 2022-12-19 16:38:00 72 mm[Hg] Unive rsity of pressure [facility] Body temperature 2022-12-19 16:38:00 [facility]72 [facility] 2022-12-19 16:38:00 18 /min [facility] Oxygen saturation in 2022-12-19 16:38:00 95 /min [facility] Arterial blood by [facility] Pulse oximetry Branch Heart rate 2022-12-19 12:47:00 44 /min [facility] Body weight 2022-12-19 08:26:00 97.478 kg [facility] BMI 2022-12-19 08:26:00 29.15 kg/m2 [facility] Body height 2022-12-16 22:09:00 182.9 cm [facility] BMI Calculated 2018-05-21 14:45:00 Mem[facility] al Vijay Weight 2018-05-21 14:45:00 [facility] Height 2018-05-21 14:45:00 182.88 cm [facility] Vijay Temperature Oral (F) 2018-05-21 14:45:00 98.3 F [facility] Heart Rate 2018-05-21 14:45:00 [facility] Systolic (mm Hg) 2018-05-21 14:45:00 Shashi rial Vijay Diastolic (mm Hg) 2018-05-21 14:45:00 Mem orial Vijay BMI Calculated 2018-04-23 15:30:00 Memori al Hom[place] Weight 2018-04-23 15:30:00 [facility] Height 2018-04-23 15:30:00 182.88 cm [facility] Heart Rate 2018-04-23 15:30:00 [facility] Systolic (mm Hg) 2018-04-23 15:30:00 Shashi rial Vijay Diastolic (mm Hg) 2018-04-23 15:30:00 Mem orial Hominy Temperature Oral (F) 2018-04-23 15:30:00 97.6 F [facility] Systolic (mm Hg) 2018-04-19 16:47:00 Shashi rial Hominy Diastolic (mm Hg) 2018-04-19 16:47:00 Mem orial Hominy Temperature Oral (F) 2018-04-19 16:47:00 98.4 F [facility] Heart Rate 2018-04-19 16:47:00 [facility] Respitory Rate 2018-04-19 13:08:00 Memori al [place] Heart Rate 2018-04-19 12:55:00 [facility] Systolic (mm Hg) 2018-04-19 12:55:00 Shashi rial Vijay Diastolic (mm Hg) 2018-04-19 12:55:00 Mem orial Hominy Temperature Oral (F) 2018-04-19 12:55:00 98 F [facility] Respitory Rate 2018-04-19 08:42:00 Memori al Vijay Heart Rate 2018-04-19 08:42:00 [facility] Temperature Oral (F) 2018-04-19 08:42:00 98.7 F [facility] Systolic (mm Hg) 2018-04-19 08:42:00 Shashi rial Hominy Diastolic (mm Hg) 2018-04-19 08:42:00 Mem orial Vijay Respitory Rate 2018-04-19 04:40:00 Memori al Vijay Height 2018-04-10 20:14:00 182.88 cm [facility] Weight 2018-04-10 20:14:00 [facility] BMI Calculated 2018-04-10 20:14:00 Memori al V[place]ay BMI Calculated 2018-03-03 15:45:00 Memori al Vijay Weight 2018-03-03 15:45:00 [facility] Height 2018-03-03 15:45:00 182.88 cm [facility] Heart Rate 2018-03-03 15:45:00 [facility] Temperature Oral (F) 2018-03-03 15:45:00 97.7 F [facility] Systolic (mm Hg) 2018-03-03 15:45:00 Shashi rial Hominy Diastolic (mm Hg) 2018-03-03 15:45:00 Mem orial Vijay Systolic (mm Hg) 2018-02-25 21:08:00 Shashi rial Vijay Diastolic (mm Hg) 2018-02-25 21:08:00 Mem orial Vijay Heart Rate 2018-02-25 21:08:00 [facility] Respitory Rate 2018-02-25 21:08:00 Memori al Vijay Temperature Oral (F) 2018-02-25 21:08:00 98.5 F [facility] Respitory Rate 2018-02-25 16:12:00 Memori al Vijay Temperature Oral (F) 2018-02-25 16:12:00 98.5 F [facility] Heart Rate 2018-02-25 16:12:00 [facility] Systolic (mm Hg) 2018-02-25 16:12:00 [facility] Diastolic (mm Hg) 2018-02-25 16:12:00 [facility] Systolic (mm Hg) 2018-02-25 12:30:00 [facility] Diastolic (mm Hg) 2018-02-25 12:30:00 [facility] Respitory Rate 2018-02-25 12:30:00 [facility] Heart Rate 2018-02-25 12:30:00 [facility] Temperature Oral (F) 2018-02-25 12:30:00 99.2 F [facility] Weight 2018-02-23 13:44:00 [facility] BMI Calculated 2018-02-23 13:44:00 [facility] Height 2018-02-23 13:44:00 182.88 cm [facility] Weight 2018-02-23 03:57:00 [facility] BMI Calculated 2018-02-23 03:57:00 [facility] Height 2018-02-23 03:57:00 182.88 cm [facility] Systolic (mm Hg) 2017-07-11 21:12:00 [facility] Diastolic (mm Hg) 2017-07-11 21:12:00 [facility] Heart Rate 2017-07-11 21:12:00 [facility] Temperature Oral (F) 2017-07-11 21:12:00 97.9 F [facility] Systolic (mm Hg) 2017-07-11 17:59:00 [facility] Diastolic (mm Hg) 2017-07-11 17:59:00 [facility] Temperature Oral (F) 2017-07-11 17:59:00 97.4 F [facility] Heart Rate 2017-07-11 17:59:00 [facility] Heart Rate 2017-07-11 17:11:00 [facility] Systolic (mm Hg) 2017-07-11 17:11:00 [facility] Diastolic (mm Hg) 2017-07-11 17:11:00 [facility] Temperature Oral (F) 2017-07-11 17:11:00 97.7 F [facility] Respitory Rate 2017-07-11 10:00:00 [facility] Respitory Rate 2017-07-11 01:27:00 [facility] Respitory Rate 2017-07-10 21:08:00 [facility] Weight 2017-07-08 07:57:00 [facility] BMI Calculated 2017-07-08 07:57:00 [facility] Height 2017-07-08 07:57:00 182.88 cm [facility] Procedures Procedure Date / Time Performing Clinician Source Performed MAGNESIUM 2022-12-19 08:[facility] 2022-12-19 08:33[facility], GLUCOSE, BUN, Medica l [facility] CREATININE, [place]) CBC WITH DIFF 2022-12-19 08:33:00 Omari Sethi [facility] FREE T4 2022-12-18 17:16[facility] 2022-12-18 16:59:[address] [facility] THYROID STIMULATING 2022-12-18 09:23:00 Valentin Muñoz [facility] HORMONE [facility] BASIC METABOLIC PANEL (NA, 2022-12-18 09:23[facility], CO2, GLUCOSE, BUN, Medica l Branch CREATININE, CA) CBC WITH DIFF 2022-12-18 09:23[facility] 2022-12-18 09:23:00 Kylee [facility] FECAL PATHOGENS BY PCR 2022-12-17 19:06:00 Betty Vanessa [facility] FECES CULTURE 2022-12-17 19:05:00 Betty Vanessa [facility] MAGNESIUM 2022-12-17 09:31:00 Bella Pichardo [facility] BASIC METABOLIC PANEL (NA, 2022-12-17 09:31:00 Bella Pichardo [facility] K, CL, CO2, GLUCOSE, BUN, Medica l Branch CREATININE, CA) CBC WITH DIFF 2022-12-17 09:31:00 Bella Pichardo [facility] URINALYSIS 2022-12-16 20:05:00 German Madsen [facility] CT ABDOMEN PELVIS W 2022-12-16 18:38:00 German Madsen [facility] CONTRAST [facility] LIPASE 2022-12-16 18:20:00 German Madsen [facility] COMP. 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 [facility] 12:55:00 14:15:00 Bella Pichardo [id number] [facility] 4.2.7.2.686 [facility] [id number] [facility] 081 Branch 2022-12-16 2022-12-19 Outpatient X KYLEE [facility] CANDIDA [id number] [facility] 12:55:00 14:15:00 BELLA ity [facility] 2021-04-27 2021-05-02 Inpatient EL Du, Zeke [facility] DAYS [id number] [facility] 10:30:00 17:00:00 57 [facility] 2021-02-26 2021-03-20 Inpatient EL Du, Zeke [facility] DIAB [id number] [facility] 12:00:00 00:00:00 68 [facility] 2021-01-30 2021-02-17 Inpatient EL Du, Zeke [facility] DIAB [id number] [facility] 23:50:00 00:00:00 08 [facility] 2021-01-02 2021-01-17 Outpatient EL Du, Zeke [facility] DIAB [id number] [facility] 21:18:00 00:00:00 10 [facility] 2020-02-25 2020-02-25 Emergency [facility] [id number] 12:18:00 14:39:00 Alejandro Fournier 350.1.13.10 [place] 4.2.7.2.686 [place] [id number] 2020-02-25 2020-02-25 Emergency X [facility] ERT [id number] Univers 12:18:00 12:18:00 [facility] 2020-02-25 2020-02-25 Orders Doctor NANCY [id number] 00:00:00 00:00:00 Only Unassigned, CHARMAINE 350.1.13.[address] [place] [facility] 4.2.7.2.686 [id number] 2018-05-27 2018-05-27 Ambulatory nullFlavo [facility] 35 [id number] [facility] 16:45:00 16:45:00 Pre-Reg r Specialty 06 l [facility] 2018-05-27 2018-05-27 Ambulatory nullFlavo [facility] 35 [id number] Mem[facility] 16:45:00 16:45:00 Pre-Reg r Specialty 06 l [facility] 2018-05-27 2018-05-27 Outpatient MHIE MHIE [id number] Memoria 10:45:00 10:45:00 06 varun Hominy 2018-05-27 2018-05-27 Outpatient Khani, MHMG MHMG [id number] 10:45:00 10:45:00 [facility] 2018-05-21 2018-05-22 Outpatient nullFlavo [facility] 35 [id number] Memoria 14:45:00 04:59:59 r Specialty 05 l [facility] 2018-05-21 2018-05-22 Outpatient nullFlavo [facility] 35 [id number] Memoria 14:45:00 04:59:59 r Specialty 05 l [facility] 2018-05-21 2018-05-21 Outpatient Khani, MHMG MG [id number] 09:45:00 23:59:59 [facility] 2018-[facility]21 2018-05-21 Outpatient MHIE MHIE [id number] Memoria 09:45:00 09:45:00 05 varun Hominy 2018-04-23 2018-04-25 Phone nullFlavo [facility] Multi [id number] Memoria 13:22:00 04:59:59 Message r Specialty 00 l [facility] 2018-04-23 2018-04-25 Phone nullFlavo MG Multi [id number] Memoria 13:22:00 04:59:59 Message r Specialty 00 l [facility] 2018-04-23 2018-04-24 Outpatient MHMG MHMG [id number] 08:22:00 23:59:59 00 2018-04-23 2018-04-24 Outpatient nullFlavo [facility] 35 [id number] Memoria 15:30:00 04:59:59 r Specialty 04 l [facility] 2018-04-23 2018-04-24 Outpatient nullFlavo [facility] 35 [id number] Memoria 15:30:00 04:59:59 r Specialty 04 l [facility] 2018-04-23 2018-04-24 Outpatient nullFlavo [facility] [id number] Memoria 19:05:00 04:59:00 r Vijay 02 [facility] 2018-04-23 2018-04-24 Outpatient nullFlavo [facility] [id number] Memoria 19:05:00 04:59:00 r Vijay 02 [facility] 2018-04-23 2018-04-23 Outpatient BOBBI WallsMG MG [id number] 10:30:00 23:59:59 Mohummed [facility] 2018-04-23 2018-04-[address] [id number] 14:05:00 23:59:00 Mohummed [facility] 2018-04-23 2018-04-23 Outpatient MHIE IE [id number] Memoria 10:30:00 10:30:00 04 [facility] 2018-04-17 2018-04-19 Inpatient nullFlavo [facility] [id number] Memoria 10:30:00 16:50:00 r Hominy 01 [facility] 2018-04-17 2018-04-19 Inpatient nullFlavo [facility] [id number] Memoria 10:30:00 16:50:00 r Vijay 01 [facility] 2018-04-17 2018-04-19 Outpatient BOBBI WallsSE [facility] [id number] 05:30:00 11:50:00 Mohummed [facility] 2018-04-17 2018-04-18 Outpatient nullFlavo [facility] [id number] Memoria 12:30:00 04:59:59 r Urology 03 Replaced by [facility] 2018-04-17 2018-04-18 Outpatient nullFlavo [facility] [id number] Memoria 12:30:00 04:59:59 r ColoRectal 02 l [facility] 2018-04-17 2018-04-18 Outpatient nullFlavo [facility] [id number] Memoria 12:30:00 04:59:59 r ColoRectal 02 [facility] 2018-04-17 2018-04-18 Outpatient nullFlavo [facility] [id number] Memoria 12:30:00 04:59:59 r Urology 03 Replaced by [facility] 2018-04-17 2018-04-17 Outpatient BOBBI WallsMG MG [id number] 07:30:00 23:59:59 Mohummed [facility] 2018-04-17 2018-04-17 Outpatient Royal Cuadra [facility] [id number] 07:30:00 23:59:59 Jesse 03 2018-04-17 2018-04-17 Outpatient MHIE IE [id number] Memoria 07:30:00 07:30:00 02 [facility] 2018-04-17 2018-04-17 Outpatient MHIE IE [id number] Memoria 07:30:00 07:30:00 03 [facility] 2018-03-03 2018-03-04 Outpatient nullFlavo [facility] [id number] Memoria 15:45:00 04:59:59 r Colorectal 00 l [facility] 2018-03-03 2018-03-04 Outpatient nullFlavo [facility] [id number] Memoria 15:45:00 04:59:59 r Colorectal 00 l [facility] 2018-03-03 2018-03-03 Outpatient Titi [facility] [id number] 10:45:00 23:59:59 Mohummed [facility] 2018-03-03 2018-03-03 Outpatient MHIE IE [id number] Memoria 10:45:00 10:45:00 00 [facility] 2018-02-23 2018-02-25 Inpatient nullFlavo [facility] [id number] Memoria 03:47:00 22:45:00 r Vijay 00 l [facility] 2018-02-23 2018-02-25 Inpatient nullFlavo [facility] [id number] Memoria 03:47:00 22:45:00 r Vijay 00 l [facility] 2018-02-22 2018-02-25 Outpatient Ghebranious MHSE MHSE [id number] 22:47:00 17:45:00 , Amir 00 [place] 2018-02-23 2018-02-24 Outpatient nullFlavo [facility] [id number] Memoria 13:00:00 04:59:59 r Colorectal 01 l [facility] 2018-02-23 2018-02-24 Outpatient nullFlavo [facility] [id number] Memoria 13:00:00 04:59:59 r Colorectal 01 l [facility] 2018-02-23 2018-02-23 Outpatient Titi [facility] [id number] 08:00:00 23:59:59 Mohummed [facility] 2018-02-23 2018-02-23 Outpatient MHIE IE [id number] Memoria 08:00:00 08:00:00 01 [facility] 2017-07-08 2017-07-11 Inpatient nullFlavo [facility] [id number] Memoria 07:40:00 23:20:00 r Vijay 53 l [facility] 2017-07-08 2017-07-11 Inpatient [facility] [id number] [facility] 07:40:00 23:20:00 merline Linares 53 l [facility] 2017-07-08 2017-07-11 Outpatient ALEENA Saul [facility] [id number] 01:40:00 17:20:00 Carl [place] 53 Results Test Description Test Time Test Comments Results Result Comments Source COMP. METABOLIC PANEL (52849) 2022-12-16 18:54:21 Test Item Value Reference Range Interpretation Comme nts NA (test code = 0316749798) 138 mmol/L 135-145 K (test code = 0638428066) 4.6 mmol/L 3.5-5.0 CL (test code = 8680829475) 105 mmol/L 98-108 CO2 TOTAL (test code = 9478047313) 23 mmol/L 23-31 AGAP (test code = 4787868840) 10 2-16 BUN (test code = 0083371474) 15 mg/dL 7-23 GLUCOSE (test code = 9526692470) 91 mg/dL 70-110 CREATININE (test code = 0.95 mg/dL 0.60-1.25 1895816273) TOTAL BILI (test code = 1.9 mg/dL 0.1-1.1 H 5132961797) CALCIUM (test code = 7317299602) 9.3 mg/dL 8.6-10.6 T PROTEIN (test code = 7765816875) 7.6 g/dL 6.3-8.2 ALBUMIN (test code = 1065181217) 4.6 g/dL 3.5-5.0 ALK PHOS (test code = 3303676769) 65 U/L 34-122 ALTv (test code = 1742-6) 16 U/L 5-50 AST(SGOT) (test code = 5773702165) 23 U/L 13-40 eGFR (test code = 6143515073) 87.4 mL/min/1.73m2 KOMAL (test code = KOMAL) Association of Glomerular Filtration Rate (GFR) and Staging of Kidney Disease* + +-------- + ------+| GFR (mL/min/1.73 m2) ?| With Kidney Damage ?| ?Without Kidney Damage+ +-- + +| ?>90 ?| ?Stage one ?| ? Normal ?+ +------- + -------+| ?60-89 ?| ?Stage two ?| ? Decreased GFR ? + +-------- + ------+| ?30-59 ?| ?Stage three ?| ? Stage three ? + +-------- + ------+| ?15-29 ?| ?Stage four ? | ? Stage four ?+ +------- + -------+| ?<15 (or dialysis) ? ?| ?Stage five ? | ? Stage five ?+ +------- + -------+ *Each stage assumes the associated GFR level has been in effect for at least three months. ?Stages 1 to 5, with or without kidney disease, indicate chronic kidney disease. Notes: Determination of stages one and two (with eGFR >59mL/min/1.73 m2) requires estimation of kidney damage for at least three months as defined by structural or functional abnormalities of the kidney, manifested by either:Pathological abnormalities or Markers of kidney damage (including abnormalities in the composition of the blood or urine or abnormalities in imaging tests). Lab Interpretation (test code = Abnormal 87058-5) [id number] 18[facility]54[facility]01 Test Item Value Reference Range Interpretation Comments LIPASE (test code = 8095914827) 99 U/L 0-220 Lab Interpretation (test code = Normal 91349-0) [facility] WITH [id number] 18:42:02 Test Item Value Reference Range Interpretation Comments WBC (test code = 7.68 See_Comment [Automated 1522-2) message] The sy stem which generated this result transmitted reference range : 4.20 - 10.70 10*3/?L. The reference range was not used to interpret this result as normal/abnormal . RBC (test code = 5.03 See_Comment [Automated 592-9) message] The sy stem which generated this result transmitted reference range : 4.26 - 5.52 10*6/?L. The reference range was not used to interpret this result as normal/abnormal . HGB (test code = 15.1 g/dL 12.2-16.4 718-7) HCT (test code = 44.3 % 38.4-49.3 4544-3) MCV (test code = 88.1 fL 81.7-95.6 787-2) MCH (test code = 30.0 pg 26.1-32.7 785-6) MCHC (test code = 34.1 g/dL 31.2-35.0 786-4) RDW-SD (test code = 41.4 fL 38.5-51.6 00674-0) RDW-CV (test code = 12.9 % 12.1-15.4 788-0) PLT (test code = 266 See_Comment [Automated 777-3) message] The sy stem which generated this result transmitted reference range : 150 - 328 10*3/ ?L. The reference r gilbert was not used to interpret this result as normal/abnormal . MPV (test code = 9.6 fL 9.8-13.0 L 37977-6) NRBC/100 WBC (test 0.0 See_Comment [Automat ed code = 1233476158) message] The system which generated this result transmitted reference range : 0.0 - 10.0 /100 WBCs. The refer ence range was not u sed to interpret th is result as normal/abnormal . NRBC x10^3 (test code See_Comment [Auto mated = 9835826381) message] The s ystem which generated this result transmitted reference range : 10*3/?L. The reference range was not used to interpret this result as normal/abnormal . GRAN MAT (NEUT) % 63.0 % (test code = 770-8) IMM GRAN % (test code 0.40 % = 8378002349) LYMPH % (test code = 22.8 % 736-9) MONO % (test code = 12.1 % 5905-5) EOS % (test code = 1.2 % 713-8) BASO % (test code = 0.5 % 706-2) GRAN MAT x10^3(ANC) 4.84 10*3/uL 1.99-6.95 (test code = 8411460516) IMM GRAN x10^3 (test 0.03 10*3/uL 0.00-0.06 code = 1532652194) LYMPH x10^3 (test code 1.75 10*3/uL 1.09-3.23 = 731-0) MONO x10^3 (test code 0.93 10*3/uL 0.36-1.02 = 742-7) EOS x10^3 (test code = 0.09 10*3/uL 0.06-0.53 711-2) BASO x10^3 (test code 0.04 10*3/uL 0.01-0.09 = 704-7) Lab Interpretation Abnormal (test code = 81278-9) [facility] [id number] 09:13:00 Test Item Value Reference Range Interpretation Comments SODIUM (test code = NA) 140 mEq/L 134-147 N POTASSIUM (test code = 4.7 mEq/L 3.4-5.0 N K) CHLORIDE (test code = 107 mEq/L 100-108 N CL) CARBON DIOXIDE (test 27 mEq/l 21-33 N code = CO2) ANION GAP (test code = 11 0-20 N GAP) GLUCOSE (test code = 98 mg/dL 70-110 N GLU) BLOOD UREA NITROGEN 21 mg/dL 7-18 H (test code = BUN) GLOMERULAR FILTRATION 82.8 95-105 L Units of measure = RATE (test code = GFR) ml/mi n/1.73 m2 CREATININE (test code = 1.0 mg/dL 0.6-1.3 N CREAT) TOTAL PROTEIN (test 7.5 g/dL 6.4-8.2 N code = PROT) ALBUMIN (test code = 4.40 g/dL 3.4-5.0 N ALB) CALCIUM (test code = 9.8 mg/dL 8.0-10.5 N CA) BILIRUBIN TOTAL (test 0.70 mg/dL 0.0-1.0 N code = BILT) SGOT/AST (test code = 30 IUnit/L 15-37 N AST) SGPT/ALT (test code = 51 IUnit/L 30-65 N ALT) ALKALINE PHOSPHATASE 64 IUnit/L 20-125 N TOTAL (test code = ALKP) SERUM [id number] 09:13:00 Test Item Value Reference Range Interpretation Comments SERUM IRON (test code = IRON) 62 mcg/dL 35-150 N VITAMIN [id number] 09:13:00 Test Item Value Reference Range Interpretation Comments VITAMIN B12 (test code = VITB12) 496 pg/mL 193-986 N VIT B1 WHOLE [id number] 09:13:00 Test Item Value Reference Range Interpretation Comments VIT B1 WHOLE BLOOD 138.3 nmol/L 66.5-200.0 Performed At: (test code = [facility] [id number]) [place], [place] [id number] isaias Novoa MD Ph:[phone] SURGICAL PATH [id number] 16:14:00 Test Item Value Reference Range Interpretation Comments SURGICAL PATH SPECIMENS (test code = S) RUN DATE: 05/03/21 [facility] PAGE 1 RUN TIME: 1614 Specimen Inquiry RUN USER: INTERFACE PATIENT: LISA FLORES LOC: G.5WS U #: [id number] AGE/SX: 41/M ROOM: [facility] RE05/01/21REG DR: Zeke Dodd MD : 81 BED: 1 DIS: 05/02/21 STATUS: DIS IN TLOC: SPEC #: [id number] RECD: 05/02/21 STATUS: PEREZ CANTU #: [id number] JOHNNY: 05/01/21- DR: Zeke Dodd MD ENTERED: 05/02/21 SP TYPE: SURG SPEC OTHR DR: No Primary or Family PhysicianORDERED: GM LEVEL 5, IHC INIT [id number] CODES: [id number] - STOMACH, NOS COPIES TO: No Primary or Family Physician Zeke Dodd MD [address] [place] [address] [id number] [place] [address] PROCEDURES: GM LEVEL 5 (05/02/21) IHC INIT [id number] (05/02/21) TISSUES: STOMACH, NOS FINAL DIAGNOSIS Stomach, wedge excision: Mild chronic gastritis, margins appear viable. GROSS AND MICROSCOPIC GROSS EXAMINATION: Received in formalin labeled stomach is a 20 x 4.3 cm excision of stomach. The central portion is partially opened. The serosal surface is pink-link and smooth. The mucosa contains normal rugal folds. There is some hemorrhagic viscous material adherent to the surface. Sections are submitted (A)-(C) margin (D) business development representative tissue. MICROSCOPIC EXAMINATION: Sections of the stomach reveal viable margins. The lamina propria contains mild chronic inflammation, no significant active acute inflammation is seen. No Helicobacter organisms are identified by immunostaining. The controls have been reviewed and are appropriately positive/negative, immunostains are lab developed tests not cleared or approved by the FDA. Signed SIGNATURE ON FILE Niraj Gloria DO 05/03/21 1614 END OF REPORT CBC W/AUTO [id number] 08:24:00 Test Item Value Reference Range Interpretation Comments WHITE BLOOD CELL (test code = 13.9 x10 3/uL 4.5-11.0 H WBC) RED BLOOD CELL (test code = 4.78 x10 6/uL 4.00-5.60 N RBC) HEMOGLOBIN (test code = HGB) 13.8 g/dL 12.5-16.9 N HEMATOCRIT (test code = HCT) 42.4 % 37.5-50.7 N MEAN CELL VOLUME (test code = 88.7 fL 81.0-99.0 N MCV) MEAN CELL HGB (test code = 28.9 pg 27.0-33.0 N MCH) MEAN CELL HGB CONCETRATION 32.5 g/dL 33.0-37.0 L (test code = MCHC) RED CELL DISTRIBUTION WIDTH CV 12.9 % 11.5-14.5 N (test code = RDW) RED CELL DISTRIBUTION WIDTH SD 42.0 fL 37.0-54.0 N (test code = RDW-SD) PLATELET COUNT (test code = 296 x10 3/uL 150-400 N PLT) MEAN PLATELET VOLUME (test 10.9 fL 7.0-9.0 H code = MPV) NEUTROPHIL % (test code = NT%) 80.9 % 56.0-77.0 H IMMATURE GRANULOCYTE % (test 0.4 % 0.0-2.0 N code = IG%) LYMPHOCYTE % (test code = LY%) 10.6 % 14.0-32.0 L MONOCYTE % (test code = MO%) 7.9 % 4.8-9.0 N EOSINOPHIL % (test code = EO%) 0.1 % 0.3-3.7 L BASOPHIL % (test code = BA%) 0.1 % 0.0-2.0 N NUCLEATED RBC % (test code = 0.0 % 0-0 N NRBC%) NEUTROPHIL # (test code = NT#) 11.27 x10 3/uL 2.0-7.6 H IMMATURE GRANULOCYTE # (test 0.05 x10 3/uL 0.00-0.03 H code = IG#) LYMPHOCYTE # (test code = LY#) 1.48 x10 3/uL 1.0-3.8 N MONOCYTE # (test code = MO#) 1.10 x10 3/uL 0.1-0.8 H EOSINOPHIL # (test code = EO#) 0.01 x10 3/uL 0.0-0.2 N BASOPHIL # (test code = BA#) 0.02 x10 3/uL 0.0-0.2 N NUCLEATED RBC # (test code = 0.00 x10 3/uL 0.0-0.1 N NRBC#) MANUAL DIFF REQUIRED (test NO code = MDIFF) BASIC METABOLIC [id number] 08:17:00 Test Item Value Reference Range Interpretation Comments SODIUM (test code = NA) 140 mEq/L 134-147 N POTASSIUM (test code = 4.1 mEq/L 3.4-5.0 N K) CHLORIDE (test code = 102 mEq/L 100-108 N CL) CARBON DIOXIDE (test 27 mEq/l 21-33 N code = CO2) ANION GAP (test code = 16 0-20 N GAP) GLUCOSE (test code = 115 mg/dL 70-110 H GLU) BLOOD UREA NITROGEN 16 mg/dL 7-18 N (test code = BUN) GLOMERULAR FILTRATION 82.8 95-105 L Units of measure = RATE (test code = GFR) ml/mi n/1.73 m2 CREATININE (test code = 1.0 mg/dL 0.6-1.3 N CREAT) CALCIUM (test code = 8.7 mg/dL 8.0-10.5 N CA) UR NICOTINE [id number] 14:09:00 Test Item Value Reference Range Interpretation Comments UR NICOTINE QUAL (test code = Positive ng/mL Gvgyrb=423 A NICU) Novel Coronavirus 2019 [id number] 21:48:00 Test Item Value Reference Range Interpretation Comments Novel Coronavirus Negative Negative Positive r esults are 2019 Inhouse (test indicativ e of the presence code = COVNONPUI) ofSARS-CoV -2 RNA, clinical correlation wit h patient historyand othe r diagnostic info rmation is necessary to determinepatien t infection status. Positiv e results do not rule out bacterial infection or co -infection with other viru ses. Negative result s do not preclude SARS-C oV-2 infection andsh ould not be used as the vero e basis for patient managementdecis ions. Negative result s must be combined with otherclinical observations, p atient history, and epidemiological information . Detection of SARS-CoV-2 RNA may be affe cted bysample collec tion methods, storag e conditions, and /or stageof infection. Deonna l RNA mutations, vacc inations, antiviraltherap eutics, antibiotics, chemotherapeuti c orimmunosuppres mark drugs have not been e valuated for effectson d etection. Results are for the identification of SARS-CoV-2 RNA usingthe [employer] M2000 Sy stem under the FDA Emergen cy UseAuthorizatio n. The testing is perf ormed by personneltraine d in the procedures for the [employer] molecular diagnostic SARS-CoV-2 assa y in vitro. PROTHROMBIN [id number] 11:33:00 Test Item Value Reference Range Interpretation Comments PROTHROMBIN TIME 11.6 SECONDS 9.3-12.9 N PATIENT (test code = PTP) INTERNATIONAL NORMAL 1.0 0.8-1.2 N TARGET INR BY RATIO (test code = INDICATIO N Indication INR) INR1. Prophylax is of venous thrombos is 2.0 - 3.0 (orthoped ic surgery), Proph ylaxis of venous throm bosis (other than hig h-risk surgery), Treat ment of Deep Vein Thrombosis/Pulm onary Embolism, Preve ntion of systemic emb olism - Tissue heart va lves, Acute Myocardia l Infarction (to prevent systemic emboli sm), Valvular heart disease, Atrial Fibrillation, Bileaflet mecha nical valve in aortic position.2. Mec hanical prosthetic valv es (high risk), 2. 5 - 3.5 Presence of Lup us Anticoagulant o r Antiphospholipi d Antibodies, Pre vention of systemic emb olism - Acute Myocardia l Infarction (to prevent recurrent infar ct). THROMBOPLASTIN TIME [id number] 11:33:00 Test Item Value Reference Range Interpretation Comments THROMBOPLASTIN TIME 33.4 Seconds 25.0-39.5 N Therape utic Range: PARTIAL (test code = 50.4 - 88.3 Seconds PTT) Effective 11/03/2018 CBC W/AUTO [id number] 11:22:00 Test Item Value Reference Range Interpretation Comments WHITE BLOOD CELL (test code = 7.8 x10 3/uL 4.5-11.0 N WBC) RED BLOOD CELL (test code = 5.21 x10 6/uL 4.00-5.60 N RBC) HEMOGLOBIN (test code = HGB) 15.4 g/dL 12.5-16.9 N HEMATOCRIT (test code = HCT) 46.7 % 37.5-50.7 N MEAN CELL VOLUME (test code = 89.6 fL 81.0-99.0 N MCV) MEAN CELL HGB (test code = MCH) 29.6 pg 27.0-33.0 N MEAN CELL HGB CONCETRATION 33.0 g/dL 33.0-37.0 N (test code = MCHC) RED CELL DISTRIBUTION WIDTH CV 13.0 % 11.5-14.5 N (test code = RDW) RED CELL DISTRIBUTION WIDTH SD 42.5 fL 37.0-54.0 N (test code = RDW-SD) PLATELET COUNT (test code = 281 x10 3/uL 150-400 N PLT) MEAN PLATELET VOLUME (test code 10.3 fL 7.0-9.0 H = MPV) NEUTROPHIL % (test code = NT%) 50.8 % 56.0-77.0 L IMMATURE GRANULOCYTE % (test 0.5 % 0.0-2.0 N code = IG%) LYMPHOCYTE % (test code = LY%) 36.2 % 14.0-32.0 H MONOCYTE % (test code = MO%) 7.9 % 4.8-9.0 N EOSINOPHIL % (test code = EO%) 3.8 % 0.3-3.7 H BASOPHIL % (test code = BA%) 0.8 % 0.0-2.0 N NUCLEATED RBC % (test code = 0.0 % 0-0 N NRBC%) NEUTROPHIL # (test code = NT#) 3.98 x10 3/uL 2.0-7.6 N IMMATURE GRANULOCYTE # (test 0.04 x10 3/uL 0.00-0.03 H code = IG#) LYMPHOCYTE # (test code = LY#) 2.84 x10 3/uL 1.0-3.8 N MONOCYTE # (test code = MO#) 0.62 x10 3/uL 0.1-0.8 N EOSINOPHIL # (test code = EO#) 0.30 x10 3/uL 0.0-0.2 H BASOPHIL # (test code = BA#) 0.06 x10 3/uL 0.0-0.2 N NUCLEATED RBC # (test code = 0.00 x10 3/uL 0.0-0.1 N NRBC#) MANUAL DIFF REQUIRED (test code NO = MDIFF) - XR CHEST 2 [id number] 00:00:00 [facility] : 1980 Sex: M FAX: Zeke Dodd MD [phone] [place]: St: PRE Name: LISA FLORES [facility] : 1980 Age/S: 41/M [address] [place], [place] [address] Unit #: [id number] Loc: [place] [address] Phys: Zeke Dodd MD Acct: [id number] Dis Date: Status: PRE IN PHONE #: [phone] Exam Date: 04/27/2021 1207 FAX #: [phone] Reason: PREOP EXAMS: CPT CODE: [id number] XR CHEST 2 V [id number] PROCEDURE INFORMATION: Exam: XR Chest Exam date and time: 04/27/2021 11:45 AM Age: 41 years old Clinical indication: Screening exam; Pre-operative exam; Other: Pre op; Additional info: Preop TECHNIQUE: Imaging protocol: XR of the chest. Views: 2 views. PA and Lateral COMPARISON: No relevant prior studies available. FINDINGS: Lungs: Normal lung volumes. No consolidation or infiltrate. Pleural spaces: No pleural effusion. No pneumothorax. Heart/Mediastinum: The cardiomediastinal silhouette is within normal limits. Pulmonary vasculature is unremarkable. Bones/joints: No acute abnormality seen. IMPRESSION: No acute cardiopulmonary findings Abi ctronically Signed by Becky Light on 04/27/2021 at 2870 Reported and signedby: Nieves Light M.D. CC: Zeke Dodd MD Technologist: RT Sonido(R) Trnscrd Date/Time/By: 04/27/2021 ([id number]) : By: [email or web address] Orig Print D/T: S: 04/27/2021 ([id number]) PAGE 1 [address] [facility]2018-09-29 09:45:00 Test Item Value Reference Range Interpretation Comments eGFR (test code = eGFR) 66 [facility]2018-09-29 09:45:00 Test Item Value Reference Range Interpretation Comments BUN (test code = BUN) 15 7-22 [facility]2018-09-29 09:45:00 Test Item Value Reference Range Interpretation Comments CO2 (test code = CO2) 27 24-32 [facility]2018-09-29 09:45:00 Test Item Value Reference Range Interpretation Comments Chloride Lvl (test code = Chloride Lvl) 106 95-109 [facility]2018-09-29 09:45:00 Test Item Value Reference Range Interpretation Comments Glucose Lvl (test code = Glucose Lvl) 86 70-99 [facility]2018-09-29 09:45:00 Test Item Value Reference Range Interpretation Comments Calcium Lvl (test code = Calcium Lvl) 7.8 8.5-10.5 [facility]2018-09-29 09:45:00 Test Item Value Reference Range Interpretation Comments Creatinine Lvl (test code = Creatinine 1.36 0.50-1.40 Lvl) [facility]2018-09-29 09:45:00 Test Item Value Reference Range Interpretation Comments Potassium Lvl (test code = Potassium 4.3 3.5-5.1 Lvl) [facility]2018-09-29 09:45:00 Test Item Value Reference Range Interpretation Comments Sodium Lvl (test code = Sodium Lvl) 140 135-145 [facility]2018-09-29 09:45:00 Test Item Value Reference Range Interpretation Comments AGAP (test code = AGAP) 11.3 10.0-20.0 [id number] 09:45:00 Test Item Value Reference Range Interpretation Comments Monocytes # (test code 0.9 See_Comment [Aut omated message] The = Monocytes #) system which generated this result tra nsmitted reference range : <=0.8. The reference r gilbert was not used to int erpret this result as normal/abnormal . [facility] HospitalCfhpmgiZRPNZOELPA3419-87-74 09:45:00 Test Item Value Reference Range Interpretation Comments Neutrophils # (test code = Neutrophils 7.7 1.5-8.1 #) [facility] HospitalWwobyskXHKPWTRKHI7387-38-74 09:45:00 Test Item Value Reference Range Interpretation Comments Eosinophils # (test code 0.2 See_Comment [A utomated message] The = Eosinophils #) system whic h generated this result tra nsmitted reference range : <=0.5. The reference r gilbert was not used to int erpret this result as normal/abnormal . [facility] HospitalXgeuqdyRCHLXHJJER7620-29-02 09:45:00 Test Item Value Reference Range Interpretation Comments Lymphocytes # (test code = Lymphocytes 1.9 1.0-5.5 #) [facility] HospitalHjhkcgeUAGTPKNSQX8006-97-81 09:45:00 Test Item Value Reference Range Interpretation Comments Lymphocytes (test code = Lymphocytes) 17.5 20.0-40.0 [facility] HospitalHebbzyhWVRYNDRULS0795-38-12 09:45:00 Test Item Value Reference Range Interpretation Comments Segs (test code = Segs) 71.2 45.0-75.0 [place] 438238-09-29 09:45:00 Test Item Value Reference Range Interpretation Comments Eosinophils (test code = 2.3 See_Comment [A utomated message] The Eosinophils) system which ge nerated this result tra nsmitted reference range : <=4.0. The reference r gilbert was not used to int erpret this result as normal/abnormal . [facility] HospitalNywofmrRMQOVVKRRI6645-89-68 09:45:00 Test Item Value Reference Range Interpretation Comments Monocytes (test code = Monocytes) 8.8 2.0-12.0 [facility] HospitalBjfphmyHMBYFIAECG3389-27-86 09:45:00 Test Item Value Reference Range Interpretation Comments Basophils (test code = 0.2 See_Comment [Aut omated message] The Basophils) system which ge nerated this result tra nsmitted reference range : <=1.0. The reference r gilbert was not used to int erpret this result as normal/abnormal . [facility] HospitalLjkjymcDTPLBERVMH9622-34-13 09:45:00 Test Item Value Reference Range Interpretation Comments MCV (test code = MCV) 85.3 80.0-94.0 [facility] HospitalQscjojeAGKSGAWJWY9848-12-33 09:45:00 Test Item Value Reference Range Interpretation Comments Hct (test code = Hct) 39.7 42.0-54.0 [facility] HospitalRfeqbfsRMUQSYFMUK6166-52-55 09:45:00 Test Item Value Reference Range Interpretation Comments Hgb (test code = Hgb) 13.2 14.0-18.0 [facility] HospitalWyowzgmNQHKJKQPVA8628-87-94 09:45:00 Test Item Value Reference Range Interpretation Comments RBC (test code = RBC) 4.66 4.70-6.10 [facility] HospitalQkejomsNHDZOWZWLR2777-37-81 09:45:00 Test Item Value Reference Range Interpretation Comments WBC (test code = WBC) 10.8 3.7-10.4 [facility] HospitalPzgcqdfFZNNRCYRCS6564-60-30 09:45:00 Test Item Value Reference Range Interpretation Comments MPV (test code = MPV) 8.2 7.4-10.4 [facility] HospitalLjfrrkzWUQTLIRPTO1058-22-72 09:45:00 Test Item Value Reference Range Interpretation Comments Platelet (test code = Platelet) 196 133-450 [facility] HospitalFvmnepoOFIJCMCMUX4726-95-23 09:45:00 Test Item Value Reference Range Interpretation Comments RDW (test code = RDW) 14.4 11.5-14.5 [facility] HospitalJtrhgntUIIZYNZVEH0417-57-34 09:45:00 Test Item Value Reference Range Interpretation Comments MCHC (test code = MCHC) 33.2 32.0-36.0 [facility] HospitalXgwgqraBHDXOCAZIE3228-24-32 09:45:00 Test Item Value Reference Range Interpretation Comments MCH (test code = MCH) 28.3 pg 27.0-31.0 [facility]2018-09-29 09:45:00 Test Item Value Reference Range Interpretation Comments eGFR (test code = eGFR) 66 [facility]2018-09-29 09:45:00 Test Item Value Reference Range Interpretation Comments BUN (test code = BUN) 15 7-22 [facility]2018-09-29 09:45:00 Test Item Value Reference Range Interpretation Comments CO2 (test code = CO2) 27 24-32 [facility]2018-09-29 09:45:00 Test Item Value Reference Range Interpretation Comments Chloride Lvl (test code = Chloride Lvl) 106 95-109 [facility]2018-09-29 09:45:00 Test Item Value Reference Range Interpretation Comments Glucose Lvl (test code = Glucose Lvl) 86 70-99 [facility]2018-09-29 09:45:00 Test Item Value Reference Range Interpretation Comments Calcium Lvl (test code = Calcium Lvl) 7.8 8.5-10.5 [facility]2018-09-29 09:45:00 Test Item Value Reference Range Interpretation Comments Creatinine Lvl (test code = Creatinine 1.36 0.50-1.40 Lvl) [facility]2018-09-29 09:45:00 Test Item Value Reference Range Interpretation Comments Potassium Lvl (test code = Potassium 4.3 3.5-5.1 Lvl) [facility]2018-09-29 09:45:00 Test Item Value Reference Range Interpretation Comments Sodium Lvl (test code = Sodium Lvl) 140 135-145 [facility]2018-09-29 09:45:00 Test Item Value Reference Range Interpretation Comments AGAP (test code = AGAP) 11.3 10.0-20.0 [facility] HospitalOwmlyvkRTVYNLLRZF4705-20-02 09:45:00 Test Item Value Reference Range Interpretation Comments Monocytes # (test code 0.9 See_Comment [Aut omated message] The = Monocytes #) system which generated this result tra nsmitted reference range : <=0.8. The reference r gilbert was not used to int erpret this result as normal/abnormal . [facility] HospitalJgxyntvOKBAUWWHMF4523-58-66 09:45:00 Test Item Value Reference Range Interpretation Comments Neutrophils # (test code = Neutrophils 7.7 1.5-8.1 #) [facility] HospitalJvnlyrcADOTBKYHTV8967-63-72 09:45:00 Test Item Value Reference Range Interpretation Comments Eosinophils # (test code 0.2 See_Comment [A utomated message] The = Eosinophils #) system whic h generated this result tra nsmitted reference range : <=0.5. The reference r gilbert was not used to int erpret this result as normal/abnormal . [facility] HospitalDflyabjWXURMZCVGR3744-91-37 09:45:00 Test Item Value Reference Range Interpretation Comments Lymphocytes # (test code = Lymphocytes 1.9 1.0-5.5 #) [facility] HospitalDfigasqLYIQWTCBMF2885-90-38 09:45:00 Test Item Value Reference Range Interpretation Comments Lymphocytes (test code = Lymphocytes) 17.5 20.0-40.0 [facility] HospitalInaxuqpJZCMATGFQW3584-29-90 09:45:00 Test Item Value Reference Range Interpretation Comments Segs (test code = Segs) 71.2 45.0-75.0 [facility] HospitalKvirsttBOVONTUNZR7535-24-89 09:45:00 Test Item Value Reference Range Interpretation Comments Eosinophils (test code = 2.3 See_Comment [A utomated message] The Eosinophils) system which ge nerated this result tra nsmitted reference range : <=4.0. The reference r gilbert was not used to int erpret this result as normal/abnormal . [facility] HospitalJovseynRLEQRBPZAV6946-27-21 09:45:00 Test Item Value Reference Range Interpretation Comments Monocytes (test code = Monocytes) 8.8 2.0-12.0 [facility] HospitalXkgwhkvYTZAQXAPYR4126-78-72 09:45:00 Test Item Value Reference Range Interpretation Comments Basophils (test code = 0.2 See_Comment [Aut omated message] The Basophils) system which ge nerated this result tra nsmitted reference range : <=1.0. The reference r gilbert was not used to int erpret this result as normal/abnormal . [facility] HospitalKvvxvjhWLNHKUJNVR5134-88-69 09:45:00 Test Item Value Reference Range Interpretation Comments MCV (test code = MCV) 85.3 80.0-94.0 [facility] HospitalNlhgapiTQRVJIQJOV3584-03-64 09:45:00 Test Item Value Reference Range Interpretation Comments Hct (test code = Hct) 39.7 42.0-54.0 [facility] HospitalXmnawvfMGMNOUIRZT9074-44-40 09:45:00 Test Item Value Reference Range Interpretation Comments Hgb (test code = Hgb) 13.2 14.0-18.0 [facility] HospitalPlysmzcMVQUPDHBNX7016-57-97 09:45:00 Test Item Value Reference Range Interpretation Comments RBC (test code = RBC) 4.66 4.70-6.10 [facility] HospitalYyjxpryFSPLDMHABO0502-56-79 09:45:00 Test Item Value Reference Range Interpretation Comments WBC (test code = WBC) 10.8 3.7-10.4 [facility] HospitalQlftnawFXHKWRTSUD7844-88-58 09:45:00 Test Item Value Reference Range Interpretation Comments MPV (test code = MPV) 8.2 7.4-10.4 [facility] HospitalUxtrwlsQUKCWINVLB0626-59-39 09:45:00 Test Item Value Reference Range Interpretation Comments Platelet (test code = Platelet) 196 133-450 [facility] HospitalCrarbykMJONDZUDPJ6971-34-79 09:45:00 Test Item Value Reference Range Interpretation Comments RDW (test code = RDW) 14.4 11.5-14.5 [facility] HospitalDqhpnilAIVSHSVTQW0684-34-53 09:45:00 Test Item Value Reference Range Interpretation Comments MCHC (test code = MCHC) 33.2 32.0-36.0 [facility] HospitalZqxrjzrTTLQEKIFJN4747-81-87 09:45:00 Test Item Value Reference Range Interpretation Comments MCH (test code = MCH) 28.3 pg 27.0-31.0 [facility]2018-09-29 09:45:00 Test Item Value Reference Range Interpretation Comments eGFR (test code = eGFR) 66 [facility]2018-09-29 09:45:00 Test Item Value Reference Range Interpretation Comments BUN (test code = BUN) 15 7-22 [facility]2018-09-29 09:45:00 Test Item Value Reference Range Interpretation Comments CO2 (test code = CO2) 27 24-32 [facility]2018-09-29 09:45:00 Test Item Value Reference Range Interpretation Comments Chloride Lvl (test code = Chloride Lvl) 106 95-109 [facility]2018-09-29 09:45:00 Test Item Value Reference Range Interpretation Comments Glucose Lvl (test code = Glucose Lvl) 86 70-99 [facility]2018-09-29 09:45:00 Test Item Value Reference Range Interpretation Comments Calcium Lvl (test code = Calcium Lvl) 7.8 8.5-10.5 [facility]2018-09-29 09:45:00 Test Item Value Reference Range Interpretation Comments Creatinine Lvl (test code = Creatinine 1.36 0.50-1.40 Lvl) [facility]2018-09-29 09:45:00 Test Item Value Reference Range Interpretation Comments Potassium Lvl (test code = Potassium 4.3 3.5-5.1 Lvl) [facility]2018-09-29 09:45:00 Test Item Value Reference Range Interpretation Comments Sodium Lvl (test code = Sodium Lvl) 140 135-145 [facility]2018-09-29 09:45:00 Test Item Value Reference Range Interpretation Comments AGAP (test code = AGAP) 11.3 10.0-20.0 [facility] HospitalUflkljyVXQXDGWOBC9329-63-39 09:45:00 Test Item Value Reference Range Interpretation Comments Monocytes # (test code 0.9 See_Comment [Aut omated message] The = Monocytes #) system which generated this result tra nsmitted reference range : <=0.8. The reference r gilbert was not used to int erpret this result as normal/abnormal . [facility] HospitalBgwtvapOVSEFGHHUU7299-90-47 09:45:00 Test Item Value Reference Range Interpretation Comments Neutrophils # (test code = Neutrophils 7.7 1.5-8.1 #) [facility] HospitalQpplaquRYEUKHWZHJ5914-77-89 09:45:00 Test Item Value Reference Range Interpretation Comments Eosinophils # (test code 0.2 See_Comment [A utomated message] The = Eosinophils #) system whic h generated this result tra nsmitted reference range : <=0.5. The reference r gilbert was not used to int erpret this result as normal/abnormal . [facility] HospitalQnqsumwTAZYCMMQJR9731-50-32 09:45:00 Test Item Value Reference Range Interpretation Comments Lymphocytes # (test code = Lymphocytes 1.9 1.0-5.5 #) [facility] HospitalEfveogzKTSKYGMDMF5038-77-91 09:45:00 Test Item Value Reference Range Interpretation Comments Lymphocytes (test code = Lymphocytes) 17.5 20.0-40.0 [facility] HospitalTmxtnqxJPODOUQZPA0966-46-88 09:45:00 Test Item Value Reference Range Interpretation Comments Segs (test code = Segs) 71.2 45.0-75.0 [facility] HospitalGkuyipcHKZUTXHAAK4301-60-13 09:45:00 Test Item Value Reference Range Interpretation Comments Eosinophils (test code = 2.3 See_Comment [A utomated message] The Eosinophils) system which ge nerated this result tra nsmitted reference range : <=4.0. The reference r gilbert was not used to int erpret this result as normal/abnormal . [facility] HospitalIxzsrkfJGJUTESSUR2994-40-88 09:45:00 Test Item Value Reference Range Interpretation Comments Monocytes (test code = Monocytes) 8.8 2.0-12.0 [facility] HospitalYxahbgeRSYOKEQKGZ5534-62-86 09:45:00 Test Item Value Reference Range Interpretation Comments Basophils (test code = 0.2 See_Comment [Aut omated message] The Basophils) system which ge nerated this result tra nsmitted reference range : <=1.0. The reference r gilbert was not used to int erpret this result as normal/abnormal . [facility] HospitalRahfdwmDDZNGAZMSY6918-72-32 09:45:00 Test Item Value Reference Range Interpretation Comments MCV (test code = MCV) 85.3 80.0-94.0 [facility] HospitalXxcrgvtVHNUATYOBI5455-77-10 09:45:00 Test Item Value Reference Range Interpretation Comments Hct (test code = Hct) 39.7 42.0-54.0 [facility] HospitalKumbnsoOGRWPFMRAK2471-00-36 09:45:00 Test Item Value Reference Range Interpretation Comments Hgb (test code = Hgb) 13.2 14.0-18.0 [facility] HospitalCqjnfshASBYJHEBWM2761-41-20 09:45:00 Test Item Value Reference Range Interpretation Comments RBC (test code = RBC) 4.66 4.70-6.10 [facility] HospitalSpzipsuFOIZTZXDSC9692-16-32 09:45:00 Test Item Value Reference Range Interpretation Comments WBC (test code = WBC) 10.8 3.7-10.4 [facility] HospitalLloavmgVTHOXOWNTQ8541-35-72 09:45:00 Test Item Value Reference Range Interpretation Comments MPV (test code = MPV) 8.2 7.4-10.4 [facility] HospitalRnwvewqPLFHHXJLDI1231-88-51 09:45:00 Test Item Value Reference Range Interpretation Comments Platelet (test code = Platelet) 196 133-450 [facility] HospitalScpvkqnBPMPWQMMDX6787-34-66 09:45:00 Test Item Value Reference Range Interpretation Comments RDW (test code = RDW) 14.4 11.5-14.5 [facility] HospitalQdumkciNSVBEUUCCV0573-52-27 09:45:00 Test Item Value Reference Range Interpretation Comments MCHC (test code = MCHC) 33.2 32.0-36.0 [facility] HospitalVcunpxiXTECPXGNQV7007-53-27 09:45:00 Test Item Value Reference Range Interpretation Comments MCH (test code = MCH) 28.3 pg 27.0-31.0 [facility]2018-09-29 09:45:00 Test Item Value Reference Range Interpretation Comments eGFR (test code = eGFR) 66 [facility]2018-09-29 09:45:00 Test Item Value Reference Range Interpretation Comments BUN (test code = BUN) 15 7-22 [facility]2018-09-29 09:45:00 Test Item Value Reference Range Interpretation Comments CO2 (test code = CO2) 27 24-32 [facility]2018-09-29 09:45:00 Test Item Value Reference Range Interpretation Comments Chloride Lvl (test code = Chloride Lvl) 106 95-109 [facility]2018-09-29 09:45:00 Test Item Value Reference Range Interpretation Comments Glucose Lvl (test code = Glucose Lvl) 86 70-99 [facility]2018-09-29 09:45:00 Test Item Value Reference Range Interpretation Comments Calcium Lvl (test code = Calcium Lvl) 7.8 8.5-10.5 [facility]2018-09-29 09:45:00 Test Item Value Reference Range Interpretation Comments Creatinine Lvl (test code = Creatinine 1.36 0.50-1.40 Lvl) [facility]2018-09-29 09:45:00 Test Item Value Reference Range Interpretation Comments Potassium Lvl (test code = Potassium 4.3 3.5-5.1 Lvl) [facility]2018-09-29 09:45:00 Test Item Value Reference Range Interpretation Comments Sodium Lvl (test code = Sodium Lvl) 140 135-145 [facility]2018-09-29 09:45:00 Test Item Value Reference Range Interpretation Comments AGAP (test code = AGAP) 11.3 10.0-20.0 [facility] HospitalEpujzhlVPFJGFSOMR3479-98-58 09:45:00 Test Item Value Reference Range Interpretation Comments Monocytes # (test code 0.9 See_Comment [Aut omated message] The = Monocytes #) system which generated this result tra nsmitted reference range : <=0.8. The reference r gilbert was not used to int erpret this result as normal/abnormal . [facility] HospitalQvvmzeeACTTHLYQLY7504-44-26 09:45:00 Test Item Value Reference Range Interpretation Comments Neutrophils # (test code = Neutrophils 7.7 1.5-8.1 #) [facility] HospitalIwlwgcrJPKASNNTLB1617-11-97 09:45:00 Test Item Value Reference Range Interpretation Comments Eosinophils # (test code 0.2 See_Comment [A utomated message] The = Eosinophils #) system whic h generated this result tra nsmitted reference range : <=0.5. The reference r gilbert was not used to int erpret this result as normal/abnormal . [facility] HospitalHlmytqrVKMLSCOZHX2275-54-58 09:45:00 Test Item Value Reference Range Interpretation Comments Lymphocytes # (test code = Lymphocytes 1.9 1.0-5.5 #) [facility] HospitalQhlxegnYCLMVBKPKW4007-11-53 09:45:00 Test Item Value Reference Range Interpretation Comments Lymphocytes (test code = Lymphocytes) 17.5 20.0-40.0 [facility] HospitalFyczuxsYJGFSLBYBT7148-43-55 09:45:00 Test Item Value Reference Range Interpretation Comments Segs (test code = Segs) 71.2 45.0-75.0 [facility] HospitalYpoboziUVUXKYKOTJ5196-55-70 09:45:00 Test Item Value Reference Range Interpretation Comments Eosinophils (test code = 2.3 See_Comment [A utomated message] The Eosinophils) system which ge nerated this result tra nsmitted reference range : <=4.0. The reference r gilbert was not used to int erpret this result as normal/abnormal . [facility] HospitalUrtxbzgHEULKMWYEA1712-15-25 09:45:00 Test Item Value Reference Range Interpretation Comments Monocytes (test code = Monocytes) 8.8 2.0-12.0 [facility] HospitalEexgakkRQPYPVOVHX5973-14-65 09:45:00 Test Item Value Reference Range Interpretation Comments Basophils (test code = 0.2 See_Comment [Aut omated message] The Basophils) system which ge nerated this result tra nsmitted reference range : <=1.0. The reference r gilbert was not used to int erpret this result as normal/abnormal . [facility] HospitalAbvojeeFTWAQMOHVE6636-53-29 09:45:00 Test Item Value Reference Range Interpretation Comments MCV (test code = MCV) 85.3 80.0-94.0 [facility] HospitalAwxelfqGWJFLXXOFG4221-21-74 09:45:00 Test Item Value Reference Range Interpretation Comments Hct (test code = Hct) 39.7 42.0-54.0 [facility] HospitalPwlcxlpIRNPCIDHXN4848-89-28 09:45:00 Test Item Value Reference Range Interpretation Comments Hgb (test code = Hgb) 13.2 14.0-18.0 [facility] HospitalYspjggcUMVPGTLPKZ8379-45-24 09:45:00 Test Item Value Reference Range Interpretation Comments RBC (test code = RBC) 4.66 4.70-6.10 [facility] HospitalIgfjmfuNGFYXEFULW8814-47-30 09:45:00 Test Item Value Reference Range Interpretation Comments WBC (test code = WBC) 10.8 3.7-10.4 [facility] HospitalWusehneZUDUVVKPRL5236-26-05 09:45:00 Test Item Value Reference Range Interpretation Comments MPV (test code = MPV) 8.2 7.4-10.4 [facility] HospitalTjebjeoKXRPYECLRZ6098-65-83 09:45:00 Test Item Value Reference Range Interpretation Comments Platelet (test code = Platelet) 196 133-450 [facility] HospitalOwwzdljAVCXNSIRPT8551-61-73 09:45:00 Test Item Value Reference Range Interpretation Comments RDW (test code = RDW) 14.4 11.5-14.5 [facility] HospitalNuohonsLUCDUKHYDJ6652-47-46 09:45:00 Test Item Value Reference Range Interpretation Comments MCHC (test code = MCHC) 33.2 32.0-36.0 [facility] HospitalHbhlykpGFRJMLXHYQ7134-01-27 09:45:00 Test Item Value Reference Range Interpretation Comments MCH (test code = MCH) 28.3 pg 27.0-31.0 [facility]2018-09-28 12:50:00 Test Item Value Reference Range Interpretation Comments eGFR (test code = eGFR) 75 [facility]2018-09-28 12:50:00 Test Item Value Reference Range Interpretation Comments Calcium Lvl (test code = Calcium Lvl) 8.6 8.5-10.5 [facility]2018-09-28 12:50:00 Test Item Value Reference Range Interpretation Comments AGAP (test code = AGAP) 15.0 10.0-20.0 [facility]2018-09-28 12:50:00 Test Item Value Reference Range Interpretation Comments Potassium Lvl (test code = Potassium 4.0 3.5-5.1 Lvl) [facility]2018-09-28 12:50:00 Test Item Value Reference Range Interpretation Comments Sodium Lvl (test code = Sodium Lvl) 144 135-145 [facility]2018-09-28 12:50:00 Test Item Value Reference Range Interpretation Comments Chloride Lvl (test code = Chloride Lvl) 107 95-109 [facility]2018-09-28 12:50:00 Test Item Value Reference Range Interpretation Comments CO2 (test code = CO2) 26 24-32 [facility]2018-09-28 12:50:00 Test Item Value Reference Range Interpretation Comments BUN (test code = BUN) 13 7-22 [facility]2018-09-28 12:50:00 Test Item Value Reference Range Interpretation Comments Glucose Lvl (test code = Glucose Lvl) 93 70-99 [facility]2018-09-28 12:50:00 Test Item Value Reference Range Interpretation Comments Creatinine Lvl (test code = Creatinine 1.22 0.50-1.40 Lvl) [facility]2018-09-28 12:50:00 Test Item Value Reference Range Interpretation Comments eGFR (test code = eGFR) 75 [facility]2018-09-28 12:50:00 Test Item Value Reference Range Interpretation Comments Calcium Lvl (test code = Calcium Lvl) 8.6 8.5-10.5 [facility]2018-09-28 12:50:00 Test Item Value Reference Range Interpretation Comments AGAP (test code = AGAP) 15.0 10.0-20.0 [facility]2018-09-28 12:50:00 Test Item Value Reference Range Interpretation Comments Potassium Lvl (test code = Potassium 4.0 3.5-5.1 Lvl) [facility]2018-09-28 12:50:00 Test Item Value Reference Range Interpretation Comments Sodium Lvl (test code = Sodium Lvl) 144 135-145 [facility]2018-09-28 12:50:00 Test Item Value Reference Range Interpretation Comments Chloride Lvl (test code = Chloride Lvl) 107 95-109 [facility]2018-09-28 12:50:00 Test Item Value Reference Range Interpretation Comments CO2 (test code = CO2) 26 24-32 [facility]2018-09-28 12:50:00 Test Item Value Reference Range Interpretation Comments BUN (test code = BUN) 13 7-22 [facility]2018-09-28 12:50:00 Test Item Value Reference Range Interpretation Comments Glucose Lvl (test code = Glucose Lvl) 93 70-99 [facility]2018-09-28 12:50:00 Test Item Value Reference Range Interpretation Comments Creatinine Lvl (test code = Creatinine 1.22 0.50-1.40 Lvl) [facility]2018-09-28 12:50:00 Test Item Value Reference Range Interpretation Comments eGFR (test code = eGFR) 75 [facility]2018-09-28 12:50:00 Test Item Value Reference Range Interpretation Comments Calcium Lvl (test code = Calcium Lvl) 8.6 8.5-10.5 [facility]2018-09-28 12:50:00 Test Item Value Reference Range Interpretation Comments AGAP (test code = AGAP) 15.0 10.0-20.0 [facility]2018-09-28 12:50:00 Test Item Value Reference Range Interpretation Comments Potassium Lvl (test code = Potassium 4.0 3.5-5.1 Lvl) [facility]2018-09-28 12:50:00 Test Item Value Reference Range Interpretation Comments Sodium Lvl (test code = Sodium Lvl) 144 135-145 [facility]2018-09-28 12:50:00 Test Item Value Reference Range Interpretation Comments Chloride Lvl (test code = Chloride Lvl) 107 95-109 [facility]2018-09-28 12:50:00 Test Item Value Reference Range Interpretation Comments CO2 (test code = CO2) [facility]2018-09-28 12:50:00 Test Item Value Reference Range Interpretation Comments BUN (test code = BUN) 13 - [facility]2018-09-28 12:50:00 Test Item Value Reference Range Interpretation Comments Glucose Lvl (test code = Glucose Lvl) 93 70-99 [facility]2018-09-28 12:50:00 Test Item Value Reference Range Interpretation Comments Creatinine Lvl (test code = Creatinine 1.22 0.50-1.40 Lvl) [facility]2018-09-28 12:50:00 Test Item Value Reference Range Interpretation Comments eGFR (test code = eGFR) 75 [facility]2018-09-28 12:50:00 Test Item Value Reference Range Interpretation Comments Calcium Lvl (test code = Calcium Lvl) 8.6 8.5-10.5 [facility]2018-09-28 12:50:00 Test Item Value Reference Range Interpretation Comments AGAP (test code = AGAP) 15.0 10.0-20.0 [facility]2018-09-28 12:50:00 Test Item Value Reference Range Interpretation Comments Potassium Lvl (test code = Potassium 4.0 3.5-5.1 Lvl) [facility]2018-09-28 12:50:00 Test Item Value Reference Range Interpretation Comments Sodium Lvl (test code = Sodium Lvl) 144 135-145 [facility]2018-09-28 12:50:00 Test Item Value Reference Range Interpretation Comments Chloride Lvl (test code = Chloride Lvl) 107 95-109 [facility]2018-09-28 12:50:00 Test Item Value Reference Range Interpretation Comments CO2 (test code = CO2) [facility] [employer] [id number] 12:50:00 Test Item Value Reference Range Interpretation Comments BUN (test code = BUN) 13 7-22 [facility] [employer] [id number] 12:50:00 Test Item Value Reference Range Interpretation Comments Glucose Lvl (test code = Glucose Lvl) 93 70-99 [facility] [employer] [id number] 12:50:00 Test Item Value Reference Range Interpretation Comments Creatinine Lvl (test code = Creatinine 1.22 0.50-1.40 Lvl) [facility] [id number] 11:40:00 Test Item Value Reference Range Interpretation Comments Antibody Scrn (test Negative (04/17/18 6:40 code = Antibody Scrn) AM) [facility] [id number] 11:40:00 Test Item Value Reference Range Interpretation Comments ABO/Rh (test code = ABO/Rh) O POS [facility] [id number] 11:40:00 Test Item Value Reference Range Interpretation Comments Antibody Scrn (test Negative (04/17/18 6:40 code = Antibody Scrn) AM) [facility] [id number] 11:40:00 Test Item Value Reference Range Interpretation Comments ABO/Rh (test code = ABO/Rh) O POS [employer] [id number] 11:40:00 Test Item Value Reference Range Interpretation Comments Antibody Scrn (test Negative (04/17/18 6:40 code = Antibody Scrn) AM) [facility] [id number] 11:40:00 Test Item Value Reference Range Interpretation Comments ABO/Rh (test code = ABO/Rh) O POS [facility] [id number] 11:40:00 Test Item Value Reference Range Interpretation Comments Antibody Scrn (test Negative (04/17/18 6:40 code = Antibody Scrn) AM) [facility] [id number] 11:40:00 Test Item Value Reference Range Interpretation Comments ABO/Rh (test code = ABO/Rh) O POS [facility] [id number] 20:22:00 Test Item Value Reference Range Interpretation Comments Antibody Scrn (test Negative (04/10/18 3:22 code = Antibody Scrn) PM) [facility] BANK [id number] 20:22:00 Test Item Value Reference Range Interpretation Comments ABO/Rh (test code = ABO/Rh) O POS [facility]FufgyvkBEELZQAQRA1181-33-04 20:22:00 Test Item Value Reference Range Interpretation Comments MPV (test code = MPV) 8.5 7.4-10.4 [facility] HospitalTszzxvrSYWGYJLUMZ2123-62-48 20:22:00 Test Item Value Reference Range Interpretation Comments MCH (test code = MCH) 29.0 pg 27.0-31.0 [facility] HospitalQignuljSEYYIITEJD6906-35-16 20:22:00 Test Item Value Reference Range Interpretation Comments RDW (test code = RDW) 14.4 11.5-14.5 [facility] HospitalIckwhxwFRBINBCDYP1913-41-21 20:22:00 Test Item Value Reference Range Interpretation Comments MCHC (test code = MCHC) 34.5 32.0-36.0 [facility] HospitalQfflultRONLLGPEUR9671-04-80 20:22:00 Test Item Value Reference Range Interpretation Comments Platelet (test code = Platelet) 239 133-450 [facility] HospitalZorkwtfXSSEBDVEXA2778-69-47 20:22:00 Test Item Value Reference Range Interpretation Comments MCV (test code = MCV) 84.2 80.0-94.0 [facility] HospitalHydxrakSROFUPGKPI2335-76-29 20:22:00 Test Item Value Reference Range Interpretation Comments Hct (test code = Hct) 43.6 42.0-54.0 [facility] HospitalDahtptjRRHYLMVKVB1840-58-97 20:22:00 Test Item Value Reference Range Interpretation Comments Hgb (test code = Hgb) 15.0 14.0-18.0 [facility] HospitalVvxoxoiCTZDSTCCPH9291-76-15 20:22:00 Test Item Value Reference Range Interpretation Comments RBC (test code = RBC) 5.18 4.70-6.10 [facility] HospitalMqwdsmaAAOOFYXTDC7121-24-03 20:22:00 Test Item Value Reference Range Interpretation Comments WBC (test code = WBC) 7.7 3.7-10.4 [facility] HospitalCksadglAOHYJJCJTV1601-53-44 20:22:00 Test Item Value Reference Range Interpretation Comments Basophils # (test code 0.1 See_Comment [Aut omated message] The = Basophils #) system which generated this result tra nsmitted reference range : <=0.2. The reference r gilbert was not used to int erpret this result as normal/abnormal . [facility] HospitalQcdbprxYZKHFMPWKU4774-55-51 20:22:00 Test Item Value Reference Range Interpretation Comments Lymphocytes # (test code = Lymphocytes 2.4 1.0-5.5 #) [facility] HospitalRlgnjptEUYVDOJMXA0060-70-07 20:22:00 Test Item Value Reference Range Interpretation Comments Eosinophils # (test code 0.5 See_Comment [A utomated message] The = Eosinophils #) system whic h generated this result tra nsmitted reference range : <=0.5. The reference r gilbert was not used to int erpret this result as normal/abnormal . [facility] HospitalGhaqjvvCSJLZNFNVW3924-93-21 20:22:00 Test Item Value Reference Range Interpretation Comments Monocytes # (test code 0.6 See_Comment [Aut omated message] The = Monocytes #) system which generated this result tra nsmitted reference range : <=0.8. The reference r gilbert was not used to int erpret this result as normal/abnormal . [facility] HospitalIfwsgsfTBKSHZCYQU8377-56-24 20:22:00 Test Item Value Reference Range Interpretation Comments Eosinophils (test code = 6.1 See_Comment [A utomated message] The Eosinophils) system which ge nerated this result tra nsmitted reference range : <=4.0. The reference r gilbert was not used to int erpret this result as normal/abnormal . [facility] HospitalNethcisJNCRDNVUAO9245-92-86 20:22:00 Test Item Value Reference Range Interpretation Comments Monocytes (test code = Monocytes) 8.1 2.0-12.0 [facility] HospitalDgqhavjPDXOETAJIN4770-51-24 20:22:00 Test Item Value Reference Range Interpretation Comments Neutrophils # (test code = Neutrophils 4.2 1.5-8.1 #) [facility] HospitalFicbfttOYUHOAXTZO3028-75-10 20:22:00 Test Item Value Reference Range Interpretation Comments Basophils (test code = 0.9 See_Comment [Aut omated message] The Basophils) system which ge nerated this result tra nsmitted reference range : <=1.0. The reference r gilbert was not used to int erpret this result as normal/abnormal . [facility] HospitalYlxuhayEJPSNVFTSP7302-51-10 20:22:00 Test Item Value Reference Range Interpretation Comments Lymphocytes (test code = Lymphocytes) 30.6 20.0-40.0 [facility] RockRrsfohdHVSRYNYGPS6376-88-22 20:22:00 Test Item Value Reference Range Interpretation Comments Segs (test code = Segs) 54.3 45.0-75.0 [facility]kinAt[facility] LearningRed [employer] [id number] 20:22:00 Test Item Value Reference Range Interpretation Comments Antibody Scrn (test Negative (04/10/18 3:22 code = Antibody Scrn) PM) [facility] [id number] 20:22:00 Test Item Value Reference Range Interpretation Comments ABO/Rh (test code = ABO/Rh) O POS [facility] RockVaegwvwRCVIPUYFSH3289-39-79 20:22:00 Test Item Value Reference Range Interpretation Comments MPV (test code = MPV) 8.5 7.4-10.4 [facility] RockDulcvypZJZKPXFYZB1159-23-78 20:22:00 Test Item Value Reference Range Interpretation Comments MCH (test code = MCH) 29.0 pg 27.0-31.0 [facility] RockOohvnmoMHTWUVGWCG9567-77-98 20:22:00 Test Item Value Reference Range Interpretation Comments RDW (test code = RDW) 14.4 11.5-14.5 [facility] RockAhgtydgMVUNHPVKQK9428-80-23 20:22:00 Test Item Value Reference Range Interpretation Comments MCHC (test code = MCHC) 34.5 32.0-36.0 [facility] RockJkbldeiGERMVNLFUS7196-34-43 20:22:00 Test Item Value Reference Range Interpretation Comments Platelet (test code = Platelet) 239 133-450 [facility] RockQmmzaxiSUVVNZRETO3824-57-13 20:22:00 Test Item Value Reference Range Interpretation Comments MCV (test code = MCV) 84.2 80.0-94.0 [facility] LufkinWdmxylgXIVZSWSEVH0391-40-02 20:22:00 Test Item Value Reference Range Interpretation Comments Hct (test code = Hct) 43.6 42.0-54.0 [facility] HospitalBjqoucfXQWCHZQFUF5500-79-59 20:22:00 Test Item Value Reference Range Interpretation Comments Hgb (test code = Hgb) 15.0 14.0-18.0 [facility] RockBawbmynEFGPARDWXH0118-32-05 20:22:00 Test Item Value Reference Range Interpretation Comments RBC (test code = RBC) 5.18 4.70-6.10 [facility] HospitalIlpfkzjCJXCWWVQFN6301-15-52 20:22:00 Test Item Value Reference Range Interpretation Comments WBC (test code = WBC) 7.7 3.7-10.4 [facility] HospitalTppiuqnHYIFSNWYHL2094-97-85 20:22:00 Test Item Value Reference Range Interpretation Comments Basophils # (test code 0.1 See_Comment [Aut omated message] The = Basophils #) system which generated this result tra nsmitted reference range : <=0.2. The reference r gilbert was not used to int erpret this result as normal/abnormal . [facility] HospitalFtiohizSDCLBIRMGT2012-48-36 20:22:00 Test Item Value Reference Range Interpretation Comments Lymphocytes # (test code = Lymphocytes 2.4 1.0-5.5 #) [facility] HospitalSqxtcwrEFLHZKWXTC1700-96-33 20:22:00 Test Item Value Reference Range Interpretation Comments Eosinophils # (test code 0.5 See_Comment [A utomated message] The = Eosinophils #) system wh h generated this result tra nsmitted reference range : <=0.5. The reference r gilbert was not used to int erpret this result as normal/abnormal . [facility] HospitalAojiiveLQRUJEPLOS8505-63-63 20:22:00 Test Item Value Reference Range Interpretation Comments Monocytes # (test code 0.6 See_Comment [Aut omated message] The = Monocytes #) system which generated this result tra nsmitted reference range : <=0.8. The reference r gilbert was not used to int erpret this result as normal/abnormal . [facility] HospitalEmpsgbiSGGXRUMNTE8411-47-90 20:22:00 Test Item Value Reference Range Interpretation Comments Eosinophils (test code = 6.1 See_Comment [A utomated message] The Eosinophils) system which ge nerated this result tra nsmitted reference range : <=4.0. The reference r gilbert was not used to int erpret this result as normal/abnormal . [facility] HospitalVxwihqzQBEVIUAPGM2940-42-56 20:22:00 Test Item Value Reference Range Interpretation Comments Monocytes (test code = Monocytes) 8.1 2.0-12.0 [facility] HospitalZiadenbQMINACBGFS8980-25-88 20:22:00 Test Item Value Reference Range Interpretation Comments Neutrophils # (test code = Neutrophils 4.2 1.5-8.1 #) [facility] RockMurptpoOMQLYHKWXJ6257-62-34 20:22:00 Test Item Value Reference Range Interpretation Comments Basophils (test code = 0.9 See_Comment [Aut omated message] The Basophils) system which ge nerated this result tra nsmitted reference range : <=1.0. The reference r gilbert was not used to int erpret this result as normal/abnormal . [facility] RockTqffxbkQTJNWNZSWZ4507-34-00 20:22:00 Test Item Value Reference Range Interpretation Comments Lymphocytes (test code = Lymphocytes) 30.6 20.0-40.0 [facility] RockJewlrnaISCQMJYISW4549-13-44 20:22:00 Test Item Value Reference Range Interpretation Comments Segs (test code = Segs) 54.3 45.0-75.0 [facility] [id number] 20:22:00 Test Item Value Reference Range Interpretation Comments Antibody Scrn (test Negative (04/10/18 3:22 code = Antibody Scrn) PM) [facility] [id number] 20:22:00 Test Item Value Reference Range Interpretation Comments ABO/Rh (test code = ABO/Rh) O POS [facility]ufkinYovdkbbGTHANOUGFI9315-81-28 20:22:00 Test Item Value Reference Range Interpretation Comments MPV (test code = MPV) 8.5 7.4-10.4 [facility] RockLpnitzsTTHDXEOTGX3429-97-90 20:22:00 Test Item Value Reference Range Interpretation Comments MCH (test code = MCH) 29.0 pg 27.0-31.0 [facility] LufkinLexolsuDJJBNAUCJO6695-45-73 20:22:00 Test Item Value Reference Range Interpretation Comments RDW (test code = RDW) 14.4 11.5-14.5 [facility]ufkinApteqblTMDWIMSXRU7368-76-74 20:22:00 Test Item Value Reference Range Interpretation Comments MCHC (test code = MCHC) 34.5 32.0-36.0 [facility] LufkinCnuhmjuLAFMFNXCGP6462-00-76 20:22:00 Test Item Value Reference Range Interpretation Comments Platelet (test code = Platelet) 239 133-450 [facility] RockNotoorxPUWMLLNSUD3469-37-51 20:22:00 Test Item Value Reference Range Interpretation Comments MCV (test code = MCV) 84.2 80.0-94.0 [facility] HospitalPamtyuzPTMXAZMHAL6723-34-01 20:22:00 Test Item Value Reference Range Interpretation Comments Hct (test code = Hct) 43.6 42.0-54.0 [facility] HospitalVyufxdoTFCFLORLUB8789-32-94 20:22:00 Test Item Value Reference Range Interpretation Comments Hgb (test code = Hgb) 15.0 14.0-18.0 [facility] HospitalJxrkzdzDTXZBIVEFP7358-01-99 20:22:00 Test Item Value Reference Range Interpretation Comments RBC (test code = RBC) 5.18 4.70-6.10 [facility] HospitalYyuflarYQBZDJCZZU8694-48-45 20:22:00 Test Item Value Reference Range Interpretation Comments WBC (test code = WBC) 7.7 3.7-10.4 [facility] HospitalCupjffrTKALNUHMXG2001-74-74 20:22:00 Test Item Value Reference Range Interpretation Comments Basophils # (test code 0.1 See_Comment [Aut omated message] The = Basophils #) system which generated this result tra nsmitted reference range : <=0.2. The reference r gilbert was not used to int erpret this result as normal/abnormal . [facility] HospitalBormwyhIHWKJYTLHZ7624-16-14 20:22:00 Test Item Value Reference Range Interpretation Comments Lymphocytes # (test code = Lymphocytes 2.4 1.0-5.5 #) [facility] HospitalVdjmztaIVOHLAYJVM3694-95-54 20:22:00 Test Item Value Reference Range Interpretation Comments Eosinophils # (test code 0.5 See_Comment [A utomated message] The = Eosinophils #) system whic h generated this result tra nsmitted reference range : <=0.5. The reference r gilbert was not used to int erpret this result as normal/abnormal . [facility] HospitalGwhaqlsEFDEMSOMGB5086-74-59 20:22:00 Test Item Value Reference Range Interpretation Comments Monocytes # (test code 0.6 See_Comment [Aut omated message] The = Monocytes #) system which generated this result tra nsmitted reference range : <=0.8. The reference r gilbert was not used to int erpret this result as normal/abnormal . [facility] HospitalPpwukwgYVDPXGNCDR1427-05-30 20:22:00 Test Item Value Reference Range Interpretation Comments Eosinophils (test code = 6.1 See_Comment [A utomated message] The Eosinophils) system which ge nerated this result tra nsmitted reference range : <=4.0. The reference r gilbert was not used to int erpret this result as normal/abnormal . [facility] RockNjwoiwhDFKFTUHHBY7542-64-40 20:22:00 Test Item Value Reference Range Interpretation Comments Monocytes (test code = Monocytes) 8.1 2.0-12.0 [facility] HospitalWojkemoGVYRWWVTDH2359-11-55 20:22:00 Test Item Value Reference Range Interpretation Comments Neutrophils # (test code = Neutrophils 4.2 1.5-8.1 #) [facility] HospitalRnsawedFPUHHQRJYU1208-32-68 20:22:00 Test Item Value Reference Range Interpretation Comments Basophils (test code = 0.9 See_Comment [Aut omated message] The Basophils) system which ge nerated this result tra nsmitted reference range : <=1.0. The reference r gilbert was not used to int erpret this result as normal/abnormal . [facility] RockXrfijdjTGZLGAJUYW2211-98-79 20:22:00 Test Item Value Reference Range Interpretation Comments Lymphocytes (test code = Lymphocytes) 30.6 20.0-40.0 [facility] RockZyincqkVXKFQBFVFX2155-32-72 20:22:00 Test Item Value Reference Range Interpretation Comments Segs (test code = Segs) 54.3 45.0-75.0 [facility] RRCJMBX0601-21-29 20:22:00 Test Item Value Reference Range Interpretation Comments Antibody Scrn (test Negative (04/10/18 3:22 code = Antibody Scrn) PM) [facility] [id number] 20:22:00 Test Item Value Reference Range Interpretation Comments ABO/Rh (test code = ABO/Rh) O POS [facility]ufkinRiugqfxIIHPFAYQYU4739-97-04 20:22:00 Test Item Value Reference Range Interpretation Comments MPV (test code = MPV) 8.5 7.4-10.4 [facility] RockCvdcsaqWHPISAKLPW7890-34-23 20:22:00 Test Item Value Reference Range Interpretation Comments MCH (test code = MCH) 29.0 pg 27.0-31.0 [facility] RockDbzqzacROYIAIHTSI1320-07-85 20:22:00 Test Item Value Reference Range Interpretation Comments RDW (test code = RDW) 14.4 11.5-14.5 [facility] RockIeaizdrSJCBKRSOST8971-00-88 20:22:00 Test Item Value Reference Range Interpretation Comments MCHC (test code = MCHC) 34.5 32.0-36.0 [facility] HospitalVayumkuMYVSXZDOFS0331-62-23 20:22:00 Test Item Value Reference Range Interpretation Comments Platelet (test code = Platelet) 239 133-450 [facility] HospitalUkjrugzKMVZXRMHKZ0868-85-75 20:22:00 Test Item Value Reference Range Interpretation Comments MCV (test code = MCV) 84.2 80.0-94.0 [facility] HospitalIhbpwkaDVBZNYELBD7059-40-75 20:22:00 Test Item Value Reference Range Interpretation Comments Hct (test code = Hct) 43.6 42.0-54.0 [facility] HospitalFayosdyYLJTFYWHWK6963-41-35 20:22:00 Test Item Value Reference Range Interpretation Comments Hgb (test code = Hgb) 15.0 14.0-18.0 [place] [id number] 20:22:00 Test Item Value Reference Range Interpretation Comments RBC (test code = RBC) 5.18 4.70-6.10 [facility] HospitalNheetzxSWNULCKWXD7692-27-34 20:22:00 Test Item Value Reference Range Interpretation Comments WBC (test code = WBC) 7.7 3.7-10.4 [facility] HospitalHsbrcxyOITNZOVKAW1767-22-94 20:22:00 Test Item Value Reference Range Interpretation Comments Basophils # (test code 0.1 See_Comment [Aut omated message] The = Basophils #) system which generated this result tra nsmitted reference range : <=0.2. The reference r gilbert was not used to int erpret this result as normal/abnormal . [facility] HospitalBeklpikMNWCSNUNIO8379-74-62 20:22:00 Test Item Value Reference Range Interpretation Comments Lymphocytes # (test code = Lymphocytes 2.4 1.0-5.5 #) [facility] HospitalIqxuobtLOZZAUJUHX5480-53-76 20:22:00 Test Item Value Reference Range Interpretation Comments Eosinophils # (test code 0.5 See_Comment [A utomated message] The = Eosinophils #) system whic h generated this result tra nsmitted reference range : <=0.5. The reference r gilbert was not used to int erpret this result as normal/abnormal . [facility] HospitalMkkhagfXHPVZIAQHE9074-66-82 20:22:00 Test Item Value Reference Range Interpretation Comments Monocytes # (test code 0.6 See_Comment [Aut omated message] The = Monocytes #) system which generated this result tra nsmitted reference range : <=0.8. The reference r gilbert was not used to int erpret this result as normal/abnormal . [facility] HospitalSyvggvcZKGYECTLES4679-75-95 20:22:00 Test Item Value Reference Range Interpretation Comments Eosinophils (test code = 6.1 See_Comment [A utomated message] The Eosinophils) system which ge nerated this result tra nsmitted reference range : <=4.0. The reference r gilbert was not used to int erpret this result as normal/abnormal . [facility] HospitalIqgzezgCNLXCSPZXG1993-05-28 20:22:00 Test Item Value Reference Range Interpretation Comments Monocytes (test code = Monocytes) 8.1 2.0-12.0 [facility] HospitalNkfgopeBDKQDDKWAM1442-74-76 20:22:00 Test Item Value Reference Range Interpretation Comments Neutrophils # (test code = Neutrophils 4.2 1.5-8.1 #) [facility] HospitalMczdoggGNTADAAWKZ1217-21-52 20:22:00 Test Item Value Reference Range Interpretation Comments Basophils (test code = 0.9 See_Comment [Aut omated message] The Basophils) system which ge nerated this result tra nsmitted reference range : <=1.0. The reference r gilbert was not used to int erpret this result as normal/abnormal . [facility] HospitalWzcbmqcWALGOUTPGY5522-39-75 20:22:00 Test Item Value Reference Range Interpretation Comments Lymphocytes (test code = Lymphocytes) 30.6 20.0-40.0 [facility] HospitalQmktvfhJGNRZPBAZP9921-02-65 20:22:00 Test Item Value Reference Range Interpretation Comments Segs (test code = Segs) 54.3 45.0-75.0 [facility]HigoipkRCOXQVPSYNWW6126-10-57 14:51:00 Test Item Value Reference Range Interpretation Comments AGAP (test code = AGAP) 13.9 10.0-20.0 [facility]RbcbrysZUUJUMHYRFFY3701-17-03 14:51:00 Test Item Value Reference Range Interpretation Comments eGFR (test code = eGFR) 84 [facility] CenterDvrhyokQNOTDNLPDIFY4088-06-79 14:51:00 Test Item Value Reference Range Interpretation Comments CO2 (test code = CO2) 29 24-32 [facility] CenterGcupbzwQAHQPRHNGCBJ9749-84-69 14:51:00 Test Item Value Reference Range Interpretation Comments Calcium Lvl (test code = Calcium Lvl) 8.6 8.5-10.5 [facility] CenterItvbifgBKNBXVCZZEXK3185-32-97 14:51:00 Test Item Value Reference Range Interpretation Comments Creatinine Lvl (test code = Creatinine 1.12 0.50-1.40 Lvl) [facility] CenterKdoexmuMGKJVTXFQHUJ4391-48-27 14:51:00 Test Item Value Reference Range Interpretation Comments BUN (test code = BUN) 10 7-22 [facility] CenterNwqccriFLYOGPDRUNER2581-02-68 14:51:00 Test Item Value Reference Range Interpretation Comments Chloride Lvl (test code = Chloride Lvl) 103 95-109 [facility] CenterVqmyfsrYIOGCXILVFWY7595-73-13 14:51:00 Test Item Value Reference Range Interpretation Comments Potassium Lvl (test code = Potassium 3.9 3.5-5.1 Lvl) [facility] CenterXmecruvQGELJSHIQGFM2467-16-84 14:51:00 Test Item Value Reference Range Interpretation Comments Sodium Lvl (test code = Sodium Lvl) 142 135-145 [facility] CenterPymmjfsXOFAITOOQZWV8364-98-40 14:51:00 Test Item Value Reference Range Interpretation Comments Glucose Lvl (test code = Glucose Lvl) 113 70-99 [facility]PobveihTJEMKISKWM3203-39-49 14:51:00 Test Item Value Reference Range Interpretation Comments MPV (test code = MPV) 9.1 7.4-10.4 [facility] HospitalTolhlvpCLZWCUIXOI1346-77-41 14:51:00 Test Item Value Reference Range Interpretation Comments WBC (test code = WBC) 6.3 3.7-10.4 [facility] HospitalKxqklhzVQMCOIHJUU4063-27-31 14:51:00 Test Item Value Reference Range Interpretation Comments RBC (test code = RBC) 4.53 4.70-6.10 [facility] HospitalGqckttbPOCJNLSEXI1143-44-78 14:51:00 Test Item Value Reference Range Interpretation Comments MCH (test code = MCH) 28.2 pg 27.0-31.0 [facility] HospitalSjijdvcMGNHUGPHHK6730-24-56 14:51:00 Test Item Value Reference Range Interpretation Comments MCHC (test code = MCHC) 33.0 32.0-36.0 [facility] HospitalJopzneqGXLTSBHZOE4208-28-46 14:51:00 Test Item Value Reference Range Interpretation Comments RDW (test code = RDW) 13.7 11.5-14.5 [facility] HospitalFhsqhpzCWQHEWUSKN3885-69-02 14:51:00 Test Item Value Reference Range Interpretation Comments Platelet (test code = Platelet) 218 133-450 [facility] HospitalJaildulONBURDKHRP8873-29-61 14:51:00 Test Item Value Reference Range Interpretation Comments Hgb (test code = Hgb) 12.8 14.0-18.0 [facility] HospitalXmtmkqmMVSVMLFKAM1230-22-78 14:51:00 Test Item Value Reference Range Interpretation Comments Hct (test code = Hct) 38.7 42.0-54.0 [facility] HospitalJtiwzwqSYMQSTQOEG2826-80-71 14:51:00 Test Item Value Reference Range Interpretation Comments MCV (test code = MCV) 85.5 80.0-94.0 [facility] CenterStwztwhPQATZMGTFKKX5231-91-68 14:51:00 Test Item Value Reference Range Interpretation Comments AGAP (test code = AGAP) 13.9 10.0-20.0 [facility] CenterOqkufumROFBRBQFXFLP6716-53-16 14:51:00 Test Item Value Reference Range Interpretation Comments eGFR (test code = eGFR) 84 [facility] CenterKlmcjofWRVHTJAJLDRS0709-05-15 14:51:00 Test Item Value Reference Range Interpretation Comments CO2 (test code = CO2) 29 24-32 [facility] CenterOrbveqkNCGSXLPWVLYR2088-17-50 14:51:00 Test Item Value Reference Range Interpretation Comments Calcium Lvl (test code = Calcium Lvl) 8.6 8.5-10.5 [facility] CenterPnmmlrgVDBPFQWNDDUA6941-59-25 14:51:00 Test Item Value Reference Range Interpretation Comments Creatinine Lvl (test code = Creatinine 1.12 0.50-1.40 Lvl) [facility] CenterWyxvdlpDKPOABEYEPKE7253-39-85 14:51:00 Test Item Value Reference Range Interpretation Comments BUN (test code = BUN) 10 7-22 [facility] CenterRacxmuvIKSLMAKQKJCL1057-21-17 14:51:00 Test Item Value Reference Range Interpretation Comments Chloride Lvl (test code = Chloride Lvl) 103 95-109 [facility] CenterJkbqjnaZMVHDNUVTXAC2221-48-70 14:51:00 Test Item Value Reference Range Interpretation Comments Potassium Lvl (test code = Potassium 3.9 3.5-5.1 Lvl) [facility] CenterBttxrfzLAMZROJXSWIT3497-18-03 14:51:00 Test Item Value Reference Range Interpretation Comments Sodium Lvl (test code = Sodium Lvl) 142 135-145 [facility] CenterCyragkhFGYKAYBDHSIH8191-71-89 14:51:00 Test Item Value Reference Range Interpretation Comments Glucose Lvl (test code = Glucose Lvl) 113 70-99 [facility] HospitalLkwzzzpTRFKKVYLQQ3083-54-90 14:51:00 Test Item Value Reference Range Interpretation Comments MPV (test code = MPV) 9.1 7.4-10.4 [facility] HospitalHddqqvdQJANXUYCJM8136-14-54 14:51:00 Test Item Value Reference Range Interpretation Comments WBC (test code = WBC) 6.3 3.7-10.4 [facility] HospitalLpswbvrQNNEBNYRXM1851-30-03 14:51:00 Test Item Value Reference Range Interpretation Comments RBC (test code = RBC) 4.53 4.70-6.10 [facility] HospitalYtxyvjtCXTMELUJDE9283-65-54 14:51:00 Test Item Value Reference Range Interpretation Comments MCH (test code = MCH) 28.2 pg 27.0-31.0 [facility] HospitalWalxtasNSPEVHJHRU7803-56-18 14:51:00 Test Item Value Reference Range Interpretation Comments MCHC (test code = MCHC) 33.0 32.0-36.0 [facility] HospitalVttwpunJHZMTWRXFV1102-61-47 14:51:00 Test Item Value Reference Range Interpretation Comments RDW (test code = RDW) 13.7 11.5-14.5 [facility] HospitalJiufbpmUXMAVJWGFK9037-65-28 14:51:00 Test Item Value Reference Range Interpretation Comments Platelet (test code = Platelet) 218 133-450 [facility] HospitalGbnxmgzBEVNLYQRVO2166-78-82 14:51:00 Test Item Value Reference Range Interpretation Comments Hgb (test code = Hgb) 12.8 14.0-18.0 [facility] HospitalFwmjbfxLFGCLNKTFY0794-54-69 14:51:00 Test Item Value Reference Range Interpretation Comments Hct (test code = Hct) 38.7 42.0-54.0 [facility] HospitalZrposujHDZYLOTUWU2362-09-62 14:51:00 Test Item Value Reference Range Interpretation Comments MCV (test code = MCV) 85.5 80.0-94.0 [facility] CenterQyvmcelRYDEBOKBETMX8657-67-49 14:51:00 Test Item Value Reference Range Interpretation Comments AGAP (test code = AGAP) 13.9 10.0-20.0 [facility] CenterPsfromqSWFNKCPLPSLB0334-33-86 14:51:00 Test Item Value Reference Range Interpretation Comments eGFR (test code = eGFR) 84 [facility] CenterRmnwtzlEEWYTYPDQSUI4295-54-68 14:51:00 Test Item Value Reference Range Interpretation Comments CO2 (test code = CO2) 29 24-32 [facility] CenterGygfykxIKPDRTLKTXAW8870-61-05 14:51:00 Test Item Value Reference Range Interpretation Comments Calcium Lvl (test code = Calcium Lvl) 8.6 8.5-10.5 [facility] CenterOoepjwoOXFNVUQGYTUU7429-30-57 14:51:00 Test Item Value Reference Range Interpretation Comments Creatinine Lvl (test code = Creatinine 1.12 0.50-1.40 Lvl) [facility] CenterBxcxbmbDSJMFFKPMJDP6504-66-13 14:51:00 Test Item Value Reference Range Interpretation Comments BUN (test code = BUN) 10 7-22 [facility] CenterAbztjwuOLYUASGBVFMA2010-79-01 14:51:00 Test Item Value Reference Range Interpretation Comments Chloride Lvl (test code = Chloride Lvl) 103 95-109 [facility] CenterAietnngQXRDUPXWAGXU2085-09-02 14:51:00 Test Item Value Reference Range Interpretation Comments Potassium Lvl (test code = Potassium 3.9 3.5-5.1 Lvl) [facility] CenterAxoafapTLYIEVFDOFYF0599-38-91 14:51:00 Test Item Value Reference Range Interpretation Comments Sodium Lvl (test code = Sodium Lvl) 142 135-145 [facility] CenterCkhtiehVKQHWBSGVFNX2539-89-67 14:51:00 Test Item Value Reference Range Interpretation Comments Glucose Lvl (test code = Glucose Lvl) 113 70-99 [facility] HospitalRtimsruAPYSSJZFSJ6263-78-21 14:51:00 Test Item Value Reference Range Interpretation Comments MPV (test code = MPV) 9.1 7.4-10.4 [facility] HospitalQeupqqoQKLFCEJMRO6080-40-47 14:51:00 Test Item Value Reference Range Interpretation Comments WBC (test code = WBC) 6.3 3.7-10.4 [facility] HospitalTszinxpRWTHRFZYRL8640-40-61 14:51:00 Test Item Value Reference Range Interpretation Comments RBC (test code = RBC) 4.53 4.70-6.10 [facility] HospitalLspbzycMNNRTQFVEZ6787-48-34 14:51:00 Test Item Value Reference Range Interpretation Comments MCH (test code = MCH) 28.2 pg 27.0-31.0 [facility] HospitalGazykuwNDHJJGECGX3159-07-30 14:51:00 Test Item Value Reference Range Interpretation Comments MCHC (test code = MCHC) 33.0 32.0-36.0 [facility] HospitalBoykwmeUYBEEUOMRL6939-19-68 14:51:00 Test Item Value Reference Range Interpretation Comments RDW (test code = RDW) 13.7 11.5-14.5 [facility] HospitalQunktviLMOGDZPJFL6774-09-10 14:51:00 Test Item Value Reference Range Interpretation Comments Platelet (test code = Platelet) 218 133-450 [facility] HospitalJsdqoqhUAGOEVMHEW5001-37-53 14:51:00 Test Item Value Reference Range Interpretation Comments Hgb (test code = Hgb) 12.8 14.0-18.0 [facility] HospitalNiytgjkSZGRORCRGE7291-17-32 14:51:00 Test Item Value Reference Range Interpretation Comments Hct (test code = Hct) 38.7 42.0-54.0 [facility] HospitalMttjgamZRXRTANXEO8115-74-61 14:51:00 Test Item Value Reference Range Interpretation Comments MCV (test code = MCV) 85.5 80.0-94.0 [facility] CenterBjdnmayFTBMSAOIXIAE7908-12-78 14:51:00 Test Item Value Reference Range Interpretation Comments AGAP (test code = AGAP) 13.9 10.0-20.0 [facility] CenterPbthituFXSASUPOHMDV0174-15-78 14:51:00 Test Item Value Reference Range Interpretation Comments eGFR (test code = eGFR) 84 [facility] CenterMopotgcPLQUXZDKAYEQ5743-50-92 14:51:00 Test Item Value Reference Range Interpretation Comments CO2 (test code = CO2) 29 24-32 [facility] CenterNscxcuyWDGLFEKAYPHX7696-84-18 14:51:00 Test Item Value Reference Range Interpretation Comments Calcium Lvl (test code = Calcium Lvl) 8.6 8.5-10.5 [facility] CenterTzdqnjrEPVCYKKIJVSX5383-12-45 14:51:00 Test Item Value Reference Range Interpretation Comments Creatinine Lvl (test code = Creatinine 1.12 0.50-1.40 Lvl) [facility] CenterQweoqmuLFFUWCQOMTPA5215-48-46 14:51:00 Test Item Value Reference Range Interpretation Comments BUN (test code = BUN) 10 7-22 [facility] CenterXiqgxxbWCKAYAKFWOLB1925-85-91 14:51:00 Test Item Value Reference Range Interpretation Comments Chloride Lvl (test code = Chloride Lvl) 103 95-109 [facility] CenterMkhfzdkMLLDLHCWAYEH4196-59-84 14:51:00 Test Item Value Reference Range Interpretation Comments Potassium Lvl (test code = Potassium 3.9 3.5-5.1 Lvl) [facility] CenterArrkgwkEZLJBPXBKPNT9269-70-22 14:51:00 Test Item Value Reference Range Interpretation Comments Sodium Lvl (test code = Sodium Lvl) 142 135-145 [facility] CenterXrqonvtYOYWWCBPZPCW3459-13-01 14:51:00 Test Item Value Reference Range Interpretation Comments Glucose Lvl (test code = Glucose Lvl) 113 70-99 [facility] HospitalUohbvwwVLQAPWSNZM3137-65-88 14:51:00 Test Item Value Reference Range Interpretation Comments MPV (test code = MPV) 9.1 7.4-10.4 [facility] HospitalTlqgfgeATLXPGTWGF5583-24-79 14:51:00 Test Item Value Reference Range Interpretation Comments WBC (test code = WBC) 6.3 3.7-10.4 [facility] HospitalBojtdjyFEITAJSSPQ6354-79-34 14:51:00 Test Item Value Reference Range Interpretation Comments RBC (test code = RBC) 4.53 4.70-6.10 [facility] HospitalDclejhwBZKMEEISLH9947-89-02 14:51:00 Test Item Value Reference Range Interpretation Comments MCH (test code = MCH) 28.2 pg 27.0-31.0 [facility] HospitalOfypcuuIHQQGKHQPT7658-04-29 14:51:00 Test Item Value Reference Range Interpretation Comments MCHC (test code = MCHC) 33.0 32.0-36.0 [facility] HospitalGdlbqrqDNXGHJWDTX5109-90-25 14:51:00 Test Item Value Reference Range Interpretation Comments RDW (test code = RDW) 13.7 11.5-14.5 [facility] HospitalYbrbdbrOLUZKJSDKS9475-84-59 14:51:00 Test Item Value Reference Range Interpretation Comments Platelet (test code = Platelet) 218 133-450 [facility] HospitalPsqhptrPUZDCYQJDD7431-32-14 14:51:00 Test Item Value Reference Range Interpretation Comments Hgb (test code = Hgb) 12.8 14.0-18.0 [facility] HospitalEpoaujfGXJHDGTXFC1847-92-58 14:51:00 Test Item Value Reference Range Interpretation Comments Hct (test code = Hct) 38.7 42.0-54.0 [facility] HospitalEzlalnsBYMBOIBMCS3870-12-72 14:51:00 Test Item Value Reference Range Interpretation Comments MCV (test code = MCV) 85.5 80.0-94.0 [facility]2018-08-06 11:59:00 Test Item Value Reference Range Interpretation Comments Lactic Acid Lvl (test code = Lactic 0.8 0.5-2.2 Acid Lvl) [facility]2018-08-06 11:59:00 Test Item Value Reference Range Interpretation Comments Lactic Acid Lvl (test code = Lactic 0.8 0.5-2.2 Acid Lvl) [facility]2018-08-06 11:59:00 Test Item Value Reference Range Interpretation Comments Lactic Acid Lvl (test code = Lactic 0.8 0.5-2.2 Acid Lvl) [facility]2018-08-06 11:59:00 Test Item Value Reference Range Interpretation Comments Lactic Acid Lvl (test code = Lactic 0.8 0.5-2.2 Acid Lvl) [facility]2018-08-06 06:19:00 Test Item Value Reference Range Interpretation Comments eGFR (test code = eGFR) 86 [facility]2018-08-06 06:19:00 Test Item Value Reference Range Interpretation Comments Albumin Lvl (test code = Albumin Lvl) 3.7 3.5-5.0 [facility]2018-08-06 06:19:00 Test Item Value Reference Range Interpretation Comments Total Protein (test code = Total 7.8 6.4-8.4 Protein) [facility]2018-08-06 06:19:00 Test Item Value Reference Range Interpretation Comments Calcium Lvl (test code = Calcium Lvl) 8.7 8.5-10.5 [facility]2018-08-06 06:19:00 Test Item Value Reference Range Interpretation Comments ALT (test code = ALT) 12 See_Comment [Auto mated message] The system which ge nerated this result transmit jordana reference range : <=65. The reference range was not used to interpr et this result as les l/abnormal. [facility]2018-08-06 06:19:00 Test Item Value Reference Range Interpretation Comments Potassium Lvl (test code = Potassium 3.9 3.5-5.1 Lvl) [facility]2018-08-06 06:19:00 Test Item Value Reference Range Interpretation Comments BUN (test code = BUN) 19 7-22 [facility]2018-08-06 06:19:00 Test Item Value Reference Range Interpretation Comments Sodium Lvl (test code = Sodium Lvl) 138 135-145 [facility]2018-08-06 06:19:00 Test Item Value Reference Range Interpretation Comments Creatinine Lvl (test code = Creatinine 1.10 0.50-1.40 Lvl) [facility]2018-08-06 06:19:00 Test Item Value Reference Range Interpretation Comments CO2 (test code = CO2) 28 24-32 [facility]2018-08-06 06:19:00 Test Item Value Reference Range Interpretation Comments Chloride Lvl (test code = Chloride Lvl) 101 95-109 [facility]2018-08-06 06:19:00 Test Item Value Reference Range Interpretation Comments A/G Ratio (test code = A/G Ratio) 0.9 1 0.7-1.6 [facility]2018-08-06 06:19:00 Test Item Value Reference Range Interpretation Comments AGAP (test code = AGAP) 12.9 10.0-20.0 [facility]2018-08-06 06:19:00 Test Item Value Reference Range Interpretation Comments B/C Ratio (test code = B/C Ratio) 17 1 6-25 [facility]2018-08-06 06:19:00 Test Item Value Reference Range Interpretation Comments Globulin (test code = Globulin) 4.1 2.7-4.2 [facility]2018-08-06 06:19:00 Test Item Value Reference Range Interpretation Comments Alk Phos (test code = Alk Phos) 53 39-136 [place] [id number] 06:19:00 Test Item Value Reference Range Interpretation Comments AST (test code = AST) 17 See_Comment [Auto mated message] The system which ge nerated this result transmit jordana reference range : <=37. The reference range was not used to interpr et this result as les l/abnormal. [facility]2018-08-06 06:19:00 Test Item Value Reference Range Interpretation Comments Bili Total (test code = Bili Total) 1.7 0.2-1.3 [place] [id number] 06:19:00 Test Item Value Reference Range Interpretation Comments Glucose Lvl (test code = Glucose Lvl) 69 70-99 [facility]2018-08-06 06:19:00 Test Item Value Reference Range Interpretation Comments Lipase Lvl (test code = Lipase Lvl) 148 73-393 [facility]2018-08-06 06:19:00 Test Item Value Reference Range Interpretation Comments Lipase Lvl (test code = Lipase Lvl) 148 73-393 [facility]2018-08-06 06:19:00 Test Item Value Reference Range Interpretation Comments eGFR (test code = eGFR) 86 [facility]2018-08-06 06:19:00 Test Item Value Reference Range Interpretation Comments Albumin Lvl (test code = Albumin Lvl) 3.7 3.5-5.0 [place] [id number] 06:19:00 Test Item Value Reference Range Interpretation Comments Total Protein (test code = Total 7.8 6.4-8.4 Protein) [facility]2018-08-06 06:19:00 Test Item Value Reference Range Interpretation Comments Calcium Lvl (test code = Calcium Lvl) 8.7 8.5-10.5 [facility]2018-08-06 06:19:00 Test Item Value Reference Range Interpretation Comments ALT (test code = ALT) 12 See_Comment [Auto mated message] The system which ge nerated this result transmit jordana reference range : <=65. The reference range was not used to interpr et this result as les l/abnormal. [place] [id number] 06:19:00 Test Item Value Reference Range Interpretation Comments Potassium Lvl (test code = Potassium 3.9 3.5-5.1 Lvl) [facility]2018-08-06 06:19:00 Test Item Value Reference Range Interpretation Comments BUN (test code = BUN) 19 7-22 [place] [id number] 06:19:00 Test Item Value Reference Range Interpretation Comments Sodium Lvl (test code = Sodium Lvl) 138 135-145 [facility]2018-08-06 06:19:00 Test Item Value Reference Range Interpretation Comments Creatinine Lvl (test code = Creatinine 1.10 0.50-1.40 Lvl) [facility]2018-08-06 06:19:00 Test Item Value Reference Range Interpretation Comments CO2 (test code = CO2) 28 24-32 [facility]2018-08-06 06:19:00 Test Item Value Reference Range Interpretation Comments Chloride Lvl (test code = Chloride Lvl) 101 95-109 [facility]2018-08-06 06:19:00 Test Item Value Reference Range Interpretation Comments A/G Ratio (test code = A/G Ratio) 0.9 1 0.7-1.6 [facility]2018-08-06 06:19:00 Test Item Value Reference Range Interpretation Comments AGAP (test code = AGAP) 12.9 10.0-20.0 [facility]2018-08-06 06:19:00 Test Item Value Reference Range Interpretation Comments B/C Ratio (test code = B/C Ratio) 17 1 6-25 [facility]2018-08-06 06:19:00 Test Item Value Reference Range Interpretation Comments Globulin (test code = Globulin) 4.1 2.7-4.2 [facility]2018-08-06 06:19:00 Test Item Value Reference Range Interpretation Comments Alk Phos (test code = Alk Phos) 53 39-136 [facility]2018-08-06 06:19:00 Test Item Value Reference Range Interpretation Comments AST (test code = AST) 17 See_Comment [Auto mated message] The system which ge nerated this result transmit jordana reference range : <=37. The reference range was not used to interpr et this result as les l/abnormal. [facility]2018-08-06 06:19:00 Test Item Value Reference Range Interpretation Comments Bili Total (test code = Bili Total) 1.7 0.2-1.3 [place] [id number] 06:19:00 Test Item Value Reference Range Interpretation Comments Glucose Lvl (test code = Glucose Lvl) 69 70-99 [facility]2018-08-06 06:19:00 Test Item Value Reference Range Interpretation Comments Lipase Lvl (test code = Lipase Lvl) 148 73-393 [place] [id number] 06:19:00 Test Item Value Reference Range Interpretation Comments eGFR (test code = eGFR) 86 [facility]2018-08-06 06:19:00 Test Item Value Reference Range Interpretation Comments Albumin Lvl (test code = Albumin Lvl) 3.7 3.5-5.0 [facility]2018-08-06 06:19:00 Test Item Value Reference Range Interpretation Comments Total Protein (test code = Total 7.8 6.4-8.4 Protein) [facility]2018-08-06 06:19:00 Test Item Value Reference Range Interpretation Comments Calcium Lvl (test code = Calcium Lvl) 8.7 8.5-10.5 [facility]2018-08-06 06:19:00 Test Item Value Reference Range Interpretation Comments ALT (test code = ALT) 12 See_Comment [Auto mated message] The system which ge nerated this result transmit jordana reference range : <=65. The reference range was not used to interpr et this result as les l/abnormal. [facility]2018-08-06 06:19:00 Test Item Value Reference Range Interpretation Comments Potassium Lvl (test code = Potassium 3.9 3.5-5.1 Lvl) [facility]2018-08-06 06:19:00 Test Item Value Reference Range Interpretation Comments BUN (test code = BUN) 19 7-22 [place] [id number] 06:19:00 Test Item Value Reference Range Interpretation Comments Sodium Lvl (test code = Sodium Lvl) 138 135-145 [facility]2018-08-06 06:19:00 Test Item Value Reference Range Interpretation Comments Creatinine Lvl (test code = Creatinine 1.10 0.50-1.40 Lvl) [facility]2018-08-06 06:19:00 Test Item Value Reference Range Interpretation Comments CO2 (test code = CO2) 28 24-32 [place] 983368-08-06 06:19:00 Test Item Value Reference Range Interpretation Comments Chloride Lvl (test code = Chloride Lvl) 101 95-109 [facility]2018-08-06 06:19:00 Test Item Value Reference Range Interpretation Comments A/G Ratio (test code = A/G Ratio) 0.9 1 0.7-1.6 [place] [id number] 06:19:00 Test Item Value Reference Range Interpretation Comments AGAP (test code = AGAP) 12.9 10.0-20.0 [facility]2018-08-06 06:19:00 Test Item Value Reference Range Interpretation Comments B/C Ratio (test code = B/C Ratio) 17 1 6-25 [facility]2018-08-06 06:19:00 Test Item Value Reference Range Interpretation Comments Globulin (test code = Globulin) 4.1 2.7-4.2 [facility]2018-08-06 06:19:00 Test Item Value Reference Range Interpretation Comments Alk Phos (test code = Alk Phos) 53 39-136 [facility]2018-08-06 06:19:00 Test Item Value Reference Range Interpretation Comments AST (test code = AST) 17 See_Comment [Auto mated message] The system which ge nerated this result transmit jordana reference range : <=37. The reference range was not used to interpr et this result as les l/abnormal. [facility]2018-08-06 06:19:00 Test Item Value Reference Range Interpretation Comments Bili Total (test code = Bili Total) 1.7 0.2-1.3 [facility]2018-08-06 06:19:00 Test Item Value Reference Range Interpretation Comments Glucose Lvl (test code = Glucose Lvl) 69 70-99 [facility]2018-08-06 06:19:00 Test Item Value Reference Range Interpretation Comments Lipase Lvl (test code = Lipase Lvl) 148 73-393 [facility]2018-08-06 06:19:00 Test Item Value Reference Range Interpretation Comments eGFR (test code = eGFR) 86 [facility]2018-08-06 06:19:00 Test Item Value Reference Range Interpretation Comments Albumin Lvl (test code = Albumin Lvl) 3.7 3.5-5.0 [place] [id number] 06:19:00 Test Item Value Reference Range Interpretation Comments Total Protein (test code = Total 7.8 6.4-8.4 Protein) [facility]2018-08-06 06:19:00 Test Item Value Reference Range Interpretation Comments Calcium Lvl (test code = Calcium Lvl) 8.7 8.5-10.5 [facility]2018-08-06 06:19:00 Test Item Value Reference Range Interpretation Comments ALT (test code = ALT) 12 See_Comment [Auto mated message] The system which ge nerated this result transmit jordana reference range : <=65. The reference range was not used to interpr et this result as les l/abnormal. [facility]2018-08-06 06:19:00 Test Item Value Reference Range Interpretation Comments Potassium Lvl (test code = Potassium 3.9 3.5-5.1 Lvl) [facility]2018-08-06 06:19:00 Test Item Value Reference Range Interpretation Comments BUN (test code = BUN) 19 7-22 [facility]2018-08-06 06:19:00 Test Item Value Reference Range Interpretation Comments Sodium Lvl (test code = Sodium Lvl) 138 135-145 [facility] [id number] 06:19:00 Test Item Value Reference Range Interpretation Comments Creatinine Lvl (test code = Creatinine 1.10 0.50-1.40 Lvl) [facility]2018-08-06 06:19:00 Test Item Value Reference Range Interpretation Comments CO2 (test code = CO2) 28 24-32 [facility]2018-08-06 06:19:00 Test Item Value Reference Range Interpretation Comments Chloride Lvl (test code = Chloride Lvl) 101 95-109 [facility] [id number] 06:19:00 Test Item Value Reference Range Interpretation Comments A/G Ratio (test code = A/G Ratio) 0.9 1 0.7-1.6 [facility]2018-08-06 06:19:00 Test Item Value Reference Range Interpretation Comments AGAP (test code = AGAP) 12.9 10.0-20.0 [facility] [id number] 06:19:00 Test Item Value Reference Range Interpretation Comments B/C Ratio (test code = B/C Ratio) 17 1 6-25 [facility]2018-08-06 06:19:00 Test Item Value Reference Range Interpretation Comments Globulin (test code = Globulin) 4.1 2.7-4.2 [facility]2018-08-06 06:19:00 Test Item Value Reference Range Interpretation Comments Alk Phos (test code = Alk Phos) 53 39-136 [place] [id number] 06:19:00 Test Item Value Reference Range Interpretation Comments AST (test code = AST) 17 See_Comment [Auto mated message] The system which ge nerated this result transmit jordana reference range : <=37. The reference range was not used to interpr et this result as les l/abnormal. [facility]2018-08-06 06:19:00 Test Item Value Reference Range Interpretation Comments Bili Total (test code = Bili Total) 1.7 0.2-1.3 [facility]2018-08-06 06:19:00 Test Item Value Reference Range Interpretation Comments Glucose Lvl (test code = Glucose Lvl) 69 70-99 [id number] 04:51:00 Test Item Value Reference Range Interpretation Comments Eosinophils # (test code 0.2 See_Comment [A utomated message] The = Eosinophils #) system whic h generated this result tra nsmitted reference range : <=0.5. The reference r gilbert was not used to int erpret this result as normal/abnormal . [facility] H[id number] 04:51:00 Test Item Value Reference Range Interpretation Comments Eosinophils (test code = 1.6 See_Comment [A utomated message] The Eosinophils) system which ge nerated this result tra nsmitted reference range : <=4.0. The reference r gilbert was not used to int erpret this result as normal/abnormal . [facility] Hos[id number] 04:51:00 Test Item Value Reference Range Interpretation Comments Monocytes (test code = Monocytes) 9.9 2.0-12.0 [facility] Hos[id number] 04:51:00 Test Item Value Reference Range Interpretation Comments Neutrophils # (test code = Neutrophils 7.8 1.5-8.1 #) [place] [id number] 04:51:00 Test Item Value Reference Range Interpretation Comments Basophils (test code = 0.5 See_Comment [Aut omated message] The Basophils) system which ge nerated this result tra nsmitted reference range : <=1.0. The reference r gilbert was not used to int erpret this result as normal/abnormal . [facility] HospitalIveundxKXVGSKNBXY8410-32-81 04:51:00 Test Item Value Reference Range Interpretation Comments Lymphocytes (test code = Lymphocytes) 19.6 20.0-40.0 [facility] HospitalIzgnyrzRGJGGZYJYL7128-25-61 04:51:00 Test Item Value Reference Range Interpretation Comments Lymphocytes # (test code = Lymphocytes 2.2 1.0-5.5 #) [facility] HospitalLynqakwVFQWZSFDSR4563-19-90 04:51:00 Test Item Value Reference Range Interpretation Comments Segs (test code = Segs) 68.4 45.0-75.0 [facility] HospitalIpclpoiSAZSMKRAJP7198-00-78 04:51:00 Test Item Value Reference Range Interpretation Comments Basophils # (test code 0.1 See_Comment [Aut omated message] The = Basophils #) system which generated this result tra nsmitted reference range : <=0.2. The reference r gilbert was not used to int erpret this result as normal/abnormal . [facility] HospitalCyiyhqbMUQGOKFXRY8297-11-04 04:51:00 Test Item Value Reference Range Interpretation Comments Monocytes # (test code 1.1 See_Comment [Aut omated message] The = Monocytes #) system which generated this result tra nsmitted reference range : <=0.8. The reference r gilbert was not used to int erpret this result as normal/abnormal . [facility] HospitalOmrucdcPHQFKSHDNZ2928-31-68 04:51:00 Test Item Value Reference Range Interpretation Comments WBC (test code = WBC) 11.5 3.7-10.4 [facility] H[id number] 04:51:00 Test Item Value Reference Range Interpretation Comments MCH (test code = MCH) 28.0 pg 27.0-31.0 [facility] HospitalVqfszemXNHVRIXBEQ4431-33-55 04:51:00 Test Item Value Reference Range Interpretation Comments MCV (test code = MCV) 85.6 80.0-94.0 [facility] HospitalCrhrzukKLYIDBZIQQ6633-58-03 04:51:00 Test Item Value Reference Range Interpretation Comments RBC (test code = RBC) 5.35 4.70-6.10 [facility] HospitalFqfgwzsVFKACHQLTE5778-87-53 04:51:00 Test Item Value Reference Range Interpretation Comments Hct (test code = Hct) 45.8 42.0-54.0 [facility] HospitalXeyiyrvAKRMUCCOJD5900-53-99 04:51:00 Test Item Value Reference Range Interpretation Comments Hgb (test code = Hgb) 15.0 14.0-18.0 [facility] HospitalUtylemuVLQGTIKTIY5989-42-95 04:51:00 Test Item Value Reference Range Interpretation Comments MPV (test code = MPV) 9.4 7.4-10.4 [facility] HospitalNgtojlkRISWRSAHRJ7934-75-04 04:51:00 Test Item Value Reference Range Interpretation Comments MCHC (test code = MCHC) 32.7 32.0-36.0 [facility] HospitalTfuijqeDUUPUEYLOS3816-03-80 04:51:00 Test Item Value Reference Range Interpretation Comments Platelet (test code = Platelet) 226 133-450 [facility] HospitalZgxnqjoIWIBNHGTHA3480-85-02 04:51:00 Test Item Value Reference Range Interpretation Comments RDW (test code = RDW) 13.7 11.5-14.5 [facility]2018-08-06 04:51:00 Test Item Value Reference Range Interpretation Comments UA Ketones (test code = UA Ketones) 80 mg/dL [facility]2018-08-06 04:51:00 Test Item Value Reference Range Interpretation Comments UA Glucose (test code = UA Negative mg/dL Glucose) [facility]2018-08-06 04:51:00 Test Item Value Reference Range Interpretation Comments UA Protein (test code = UA Negative mg/dL Protein) [facility] [id number] 04:51:00 Test Item Value Reference Range Interpretation Comments UA Sq Epi (test code = UA Sq Epi) None Seen [facility]2018-08-06 04:51:00 Test Item Value Reference Range Interpretation Comments UA Bacteria (test code = UA Occasional /HPF Bacteria) [facility]2018-08-06 04:51:00 Test Item Value Reference Range Interpretation Comments UA RBC (test code = 3 See_Comment [Automa jordana message] The UA RBC) system which ge nerated this result transmit jordana reference range : <=2. The reference range was not used to interpr et this result as les l/abnormal. [facility] AND [id number] 04:51:00 Test Item Value Reference Range Interpretation Comments UA WBC (test code = no gt See_Comment [Automa jordana message] The UA WBC) system which ge nerated this result transmit jordana reference range : <=5. The reference range was not used to interpr et this result as les l/abnormal. [facility] AND [id number] 04:51:00 Test Item Value Reference Range Interpretation Comments UA Leuk Est (test Negative (02/22/18 11:51 code = UA Leuk Est) PM) [facility] AND [id number] 04:51:00 Test Item Value Reference Range Interpretation Comments UA Nitrite (test code Positive *ABN*(02/22/18 = UA Nitrite) 11:51 PM) [facility] AND [id number] 04:51:00 Test Item Value Reference Range Interpretation Comments UA Urobilinogen (test code = UA 4.0 0.1-1.0 Urobilinogen) [facility] AND [id number] 04:51:00 Test Item Value Reference Range Interpretation Comments UA Blood (test code = Negative (02/22/18 11:51 UA Blood) PM) [facility] AND [id number] 04:51:00 Test Item Value Reference Range Interpretation Comments UA Bili (test code = Negative *NA*(02/22/18 UA Bili) 11:51 PM) [facility] AND [id number] 04:51:00 Test Item Value Reference Range Interpretation Comments UA pH (test code = UA pH) 6.0 1 5.0-8.0 [facility] AND [id number] 04:51:00 Test Item Value Reference Range Interpretation Comments UA Spec Grav (test code = UA Spec 1.023 1 Grav) [facility] AND [id number] 04:51:00 Test Item Value Reference Range Interpretation Comments UA Turbidity (test code = Clear (02/22/18 11:51 UA Turbidity) PM) [facility] AND [id number] 04:51:00 Test Item Value Reference Range Interpretation Comments UA Color (test code = Yellow *NA*(02/22/18 UA Color) 11:51 PM) [facility] [id number] 04:51:00 Test Item Value Reference Range Interpretation Comments Culture: Urine (test code = No Growth Culture: Urine) [facility] HospitalOjkoqfmFFSRRDHNHC6120-66-62 04:51:00 Test Item Value Reference Range Interpretation Comments Eosinophils # (test code 0.2 See_Comment [A utomated message] The = Eosinophils #) system whic h generated this result tra nsmitted reference range : <=0.5. The reference r gilbert was not used to int erpret this result as normal/abnormal . [facility] HospitalDsflbylVEEPBHYCJP4120-91-62 04:51:00 Test Item Value Reference Range Interpretation Comments Eosinophils (test code = 1.6 See_Comment [A utomated message] The Eosinophils) system which ge nerated this result tra nsmitted reference range : <=4.0. The reference r gilbert was not used to int erpret this result as normal/abnormal . [facility] HospitalMurabpmRUAOIVZWGK7133-85-63 04:51:00 Test Item Value Reference Range Interpretation Comments Monocytes (test code = Monocytes) 9.9 2.0-12.0 [facility] HospitalWdjkluxSCVGVSLFSA8317-46-49 04:51:00 Test Item Value Reference Range Interpretation Comments Neutrophils # (test code = Neutrophils 7.8 1.5-8.1 #) [facility] HospitalFpzgmoxGUZIVQGLCE6805-87-31 04:51:00 Test Item Value Reference Range Interpretation Comments Basophils (test code = 0.5 See_Comment [Aut omated message] The Basophils) system which ge nerated this result tra nsmitted reference range : <=1.0. The reference r gilbert was not used to int erpret this result as normal/abnormal . [facility] HospitalNjfaizrKIMYNUKEBT4992-25-92 04:51:00 Test Item Value Reference Range Interpretation Comments Lymphocytes (test code = Lymphocytes) 19.6 20.0-40.0 [facility] HospitalVpgekieQMCMVIGBWF7635-95-85 04:51:00 Test Item Value Reference Range Interpretation Comments Lymphocytes # (test code = Lymphocytes 2.2 1.0-5.5 #) [facility] HospitalIztnvyqVYCRQBOONX3712-05-34 04:51:00 Test Item Value Reference Range Interpretation Comments Segs (test code = Segs) 68.4 45.0-75.0 [facility] HospitalBkpuqamGANODIIVVA0966-02-18 04:51:00 Test Item Value Reference Range Interpretation Comments Basophils # (test code 0.1 See_Comment [Aut omated message] The = Basophils #) system which generated this result tra nsmitted reference range : <=0.2. The reference r gilbert was not used to int erpret this result as normal/abnormal . [facility] HospitalIebeltnMLFNFTWXYI2543-08-00 04:51:00 Test Item Value Reference Range Interpretation Comments Monocytes # (test code 1.1 See_Comment [Aut omated message] The = Monocytes #) system which generated this result tra nsmitted reference range : <=0.8. The reference r gilbert was not used to int erpret this result as normal/abnormal . [facility] HospitalEuqquvsTXVFBEOXYJ4526-48-83 04:51:00 Test Item Value Reference Range Interpretation Comments WBC (test code = WBC) 11.5 3.7-10.4 [facility] HospitalAavbodfWTAGVZDPLH4151-02-53 04:51:00 Test Item Value Reference Range Interpretation Comments MCH (test code = MCH) 28.0 pg 27.0-31.0 [facility] HospitalTyiciamYZSVFZTTNT9209-06-99 04:51:00 Test Item Value Reference Range Interpretation Comments MCV (test code = MCV) 85.6 80.0-94.0 [facility] HospitalLuqgspwBLSZGMPRMF2241-49-84 04:51:00 Test Item Value Reference Range Interpretation Comments RBC (test code = RBC) 5.35 4.70-6.10 [facility] HospitalGqwcpugXGZFLVEKOZ7677-25-87 04:51:00 Test Item Value Reference Range Interpretation Comments Hct (test code = Hct) 45.8 42.0-54.0 [facility] HospitalCxuqhiuCFMJZVVRRO2076-19-74 04:51:00 Test Item Value Reference Range Interpretation Comments Hgb (test code = Hgb) 15.0 14.0-18.0 [facility] HospitalRyqmxtoGZBDOOVFGW1430-16-23 04:51:00 Test Item Value Reference Range Interpretation Comments MPV (test code = MPV) 9.4 7.4-10.4 [facility] HospitalWzagyjjDNPNKFEWQR3334-17-50 04:51:00 Test Item Value Reference Range Interpretation Comments MCHC (test code = MCHC) 32.7 32.0-36.0 [facility] HospitalCbhprkpWIRLSYHHFI4951-05-17 04:51:00 Test Item Value Reference Range Interpretation Comments Platelet (test code = Platelet) 226 133-450 [facility] HospitalVpmofmkGNHUOVIURM8821-73-24 04:51:00 Test Item Value Reference Range Interpretation Comments RDW (test code = RDW) 13.7 11.5-14.5 [facility] AND [id number] 04:51:00 Test Item Value Reference Range Interpretation Comments UA Ketones (test code = UA Ketones) 80 mg/dL [facility] [id number] 04:51:00 Test Item Value Reference Range Interpretation Comments UA Glucose (test code = UA Negative mg/dL Glucose) [facility] [id number] 04:51:00 Test Item Value Reference Range Interpretation Comments UA Protein (test code = UA Negative mg/dL Protein) [facility] AND [id number] 04:51:00 Test Item Value Reference Range Interpretation Comments UA Sq Epi (test code = UA Sq Epi) None Seen [facility] [id number] 04:51:00 Test Item Value Reference Range Interpretation Comments UA Bacteria (test code = UA Occasional /HPF Bacteria) [facility] AND [id number] 04:51:00 Test Item Value Reference Range Interpretation Comments UA RBC (test code = 3 See_Comment [Automa jordana message] The UA RBC) system which ge nerated this result transmit jordana reference range : <=2. The reference range was not used to interpr et this result as les l/abnormal. [facility] AND [id number] 04:51:00 Test Item Value Reference Range Interpretation Comments UA WBC (test code = no gt See_Comment [Automa jordana message] The UA WBC) system which ge nerated this result transmit jordana reference range : <=5. The reference range was not used to interpr et this result as les l/abnormal. [facility] AND [id number] 04:51:00 Test Item Value Reference Range Interpretation Comments UA Leuk Est (test Negative (02/22/18 11:51 code = UA Leuk Est) PM) [facility] AND [id number] 04:51:00 Test Item Value Reference Range Interpretation Comments UA Nitrite (test code Positive *ABN*(02/22/18 = UA Nitrite) 11:51 PM) [facility] AND [id number] 04:51:00 Test Item Value Reference Range Interpretation Comments UA Urobilinogen (test code = UA 4.0 0.1-1.0 Urobilinogen) [facility] AND [id number] 04:51:00 Test Item Value Reference Range Interpretation Comments UA Blood (test code = Negative (02/22/18 11:51 UA Blood) PM) [facility] AND [id number] 04:51:00 Test Item Value Reference Range Interpretation Comments UA Bili (test code = Negative *NA*(02/22/18 UA Bili) 11:51 PM) [facility] AND [id number] 04:51:00 Test Item Value Reference Range Interpretation Comments UA pH (test code = UA pH) 6.0 1 5.0-8.0 [facility] AND [id number] 04:51:00 Test Item Value Reference Range Interpretation Comments UA Spec Grav (test code = UA Spec 1.023 1 Grav) [facility] AND [id number] 04:51:00 Test Item Value Reference Range Interpretation Comments UA Turbidity (test code = Clear (02/22/18 11:51 UA Turbidity) PM) [facility] AND [id number] 04:51:00 Test Item Value Reference Range Interpretation Comments UA Color (test code = Yellow *NA*(02/22/18 UA Color) 11:51 PM) [facility] [id number] 04:51:00 Test Item Value Reference Range Interpretation Comments Culture: Urine (test code = No Growth Culture: Urine) [facility] RockLralwclDGNYQCGFLA2876-82-58 04:51:00 Test Item Value Reference Range Interpretation Comments Eosinophils # (test code 0.2 See_Comment [A utomated message] The = Eosinophils #) system whic h generated this result tra nsmitted reference range : <=0.5. The reference r gilbert was not used to int erpret this result as normal/abnormal . [facility]CjhhrdkYXVMQFMCEM8895-08-27 04:51:00 Test Item Value Reference Range Interpretation Comments Eosinophils (test code = 1.6 See_Comment [A utomated message] The Eosinophils) system which ge nerated this result tra nsmitted reference range : <=4.0. The reference r gilbert was not used to int erpret this result as normal/abnormal . [facility] HospitalKhouitrXXXCCJLAXD8195-48-73 04:51:00 Test Item Value Reference Range Interpretation Comments Monocytes (test code = Monocytes) 9.9 2.0-12.0 [facility] HospitalTbdtzfvYSOOTXXDFP7368-85-80 04:51:00 Test Item Value Reference Range Interpretation Comments Neutrophils # (test code = Neutrophils 7.8 1.5-8.1 #) [facility] HospitalZacyzfeRHMPFDBCOI2181-38-30 04:51:00 Test Item Value Reference Range Interpretation Comments Basophils (test code = 0.5 See_Comment [Aut omated message] The Basophils) system which ge nerated this result tra nsmitted reference range : <=1.0. The reference r gilbert was not used to int erpret this result as normal/abnormal . [facility] HospitalJbeycdfQDXUHFBVZT9607-69-98 04:51:00 Test Item Value Reference Range Interpretation Comments Lymphocytes (test code = Lymphocytes) 19.6 20.0-40.0 [facility] HospitalAbpewvlYPQWCDEKEA8037-66-56 04:51:00 Test Item Value Reference Range Interpretation Comments Lymphocytes # (test code = Lymphocytes 2.2 1.0-5.5 #) [facility] HospitalEulcilhBSJAIQRFWK6652-50-06 04:51:00 Test Item Value Reference Range Interpretation Comments Segs (test code = Segs) 68.4 45.0-75.0 [facility] HospitalKgnyiehHTFSCVGLLF2486-89-24 04:51:00 Test Item Value Reference Range Interpretation Comments Basophils # (test code 0.1 See_Comment [Aut omated message] The = Basophils #) system which generated this result tra nsmitted reference range : <=0.2. The reference r gilbert was not used to int erpret this result as normal/abnormal . [facility] HospitalZjxcsjeNDPFUJQSEB8614-62-25 04:51:00 Test Item Value Reference Range Interpretation Comments Monocytes # (test code 1.1 See_Comment [Aut omated message] The = Monocytes #) system which generated this result tra nsmitted reference range : <=0.8. The reference r gilbert was not used to int erpret this result as normal/abnormal . [place] [id number] 04:51:00 Test Item Value Reference Range Interpretation Comments WBC (test code = WBC) 11.5 3.7-10.4 [facility] HospitalUfenyeuKLCGGGMYMD0281-14-52 04:51:00 Test Item Value Reference Range Interpretation Comments MCH (test code = MCH) 28.0 pg 27.0-31.0 [facility] HospitalDhxarmvGCZVRVNCYW5755-08-93 04:51:00 Test Item Value Reference Range Interpretation Comments MCV (test code = MCV) 85.6 80.0-94.0 [facility] HospitalVfenrjxNTUTWCKHWB1493-75-05 04:51:00 Test Item Value Reference Range Interpretation Comments RBC (test code = RBC) 5.35 4.70-6.10 [facility] HospitalJnniqurCCXLZEKJNE9668-01-41 04:51:00 Test Item Value Reference Range Interpretation Comments Hct (test code = Hct) 45.8 42.0-54.0 [facility] HospitalOhhmjmzIOQAMFOTQH2402-04-57 04:51:00 Test Item Value Reference Range Interpretation Comments Hgb (test code = Hgb) 15.0 14.0-18.0 [facility] HospitalXdkmvtlPIHWRBMNEF8744-32-63 04:51:00 Test Item Value Reference Range Interpretation Comments MPV (test code = MPV) 9.4 7.4-10.4 [facility] HospitalIaauaopAOBBJTWXAJ7976-37-24 04:51:00 Test Item Value Reference Range Interpretation Comments MCHC (test code = MCHC) 32.7 32.0-36.0 [facility] HospitalMrbnnktXWKGBREXGV7380-31-38 04:51:00 Test Item Value Reference Range Interpretation Comments Platelet (test code = Platelet) 226 133-450 [facility] HospitalNskmxdbOTYIWAQBOV9571-27-21 04:51:00 Test Item Value Reference Range Interpretation Comments RDW (test code = RDW) 13.7 11.5-14.5 [facility]2018-08-06 04:51:00 Test Item Value Reference Range Interpretation Comments UA Ketones (test code = UA Ketones) 80 mg/dL [facility]2018-08-06 04:51:00 Test Item Value Reference Range Interpretation Comments UA Glucose (test code = UA Negative mg/dL Glucose) [facility]2018-08-06 04:51:00 Test Item Value Reference Range Interpretation Comments UA Protein (test code = UA Negative mg/dL Protein) [facility] AND [id number] 04:51:00 Test Item Value Reference Range Interpretation Comments UA Sq Epi (test code = UA Sq Epi) None Seen [facility] [id number] 04:51:00 Test Item Value Reference Range Interpretation Comments UA Bacteria (test code = UA Occasional /HPF Bacteria) [facility] AND [id number] 04:51:00 Test Item Value Reference Range Interpretation Comments UA RBC (test code = 3 See_Comment [Automa jordana message] The UA RBC) system which ge nerated this result transmit jordana reference range : <=2. The reference range was not used to interpr et this result as les l/abnormal. [facility] AND [id number] 04:51:00 Test Item Value Reference Range Interpretation Comments UA WBC (test code = no gt See_Comment [Automa jordana message] The UA WBC) system which ge nerated this result transmit jordana reference range : <=5. The reference range was not used to interpr et this result as les l/abnormal. [facility] AND [id number] 04:51:00 Test Item Value Reference Range Interpretation Comments UA Leuk Est (test Negative (02/22/18 11:51 code = UA Leuk Est) PM) [facility] AND [id number] 04:51:00 Test Item Value Reference Range Interpretation Comments UA Nitrite (test code Positive *ABN*(02/22/18 = UA Nitrite) 11:51 PM) [facility] AND [id number] 04:51:00 Test Item Value Reference Range Interpretation Comments UA Urobilinogen (test code = UA 4.0 0.1-1.0 Urobilinogen) [facility] AND [id number] 04:51:00 Test Item Value Reference Range Interpretation Comments UA Blood (test code = Negative (02/22/18 11:51 UA Blood) PM) [facility] [id number] 04:51:00 Test Item Value Reference Range Interpretation Comments UA Bili (test code = Negative *NA*(02/22/18 UA Bili) 11:51 PM) [facility] [id number] 04:51:00 Test Item Value Reference Range Interpretation Comments UA pH (test code = UA pH) 6.0 1 5.0-8.0 [facility] [id number] 04:51:00 Test Item Value Reference Range Interpretation Comments UA Spec Grav (test code = UA Spec 1.023 1 Grav) [facility] AND [id number] 04:51:00 Test Item Value Reference Range Interpretation Comments UA Turbidity (test code = Clear (02/22/18 11:51 UA Turbidity) PM) [facility] [id number] 04:51:00 Test Item Value Reference Range Interpretation Comments UA Color (test code = Yellow *NA*(02/22/18 UA Color) 11:51 PM) [facility] [id number] 04:51:00 Test Item Value Reference Range Interpretation Comments Culture: Urine (test code = No Growth Culture: Urine) [id number] 04:51:00 Test Item Value Reference Range Interpretation Comments Eosinophils # (test code 0.2 See_Comment [A utomated message] The = Eosinophils #) system whic h generated this result tra nsmitted reference range : <=0.5. The reference r gilbert was not used to int erpret this result as normal/abnormal . [facility]XajgmcnBAVYUBVVKF8311-90-65 04:51:00 Test Item Value Reference Range Interpretation Comments Eosinophils (test code = 1.6 See_Comment [A utomated message] The Eosinophils) system which ge nerated this result tra nsmitted reference range : <=4.0. The reference r gilbert was not used to int erpret this result as normal/abnormal . [facility] HospitalUozngtzBBWMLXCHKU4262-13-48 04:51:00 Test Item Value Reference Range Interpretation Comments Monocytes (test code = Monocytes) 9.9 2.0-12.0 [facility] HospitalRaicjcnZBCKQEBXKI0824-30-51 04:51:00 Test Item Value Reference Range Interpretation Comments Neutrophils # (test code = Neutrophils 7.8 1.5-8.1 #) [facility]LuuwjniUOTUAEJWMT3060-00-11 04:51:00 Test Item Value Reference Range Interpretation Comments Basophils (test code = 0.5 See_Comment [Aut omated message] The Basophils) system which ge nerated this result tra nsmitted reference range : <=1.0. The reference r gilbert was not used to int erpret this result as normal/abnormal . [facility] HospitalAifvzrmGQXKJRHDIX2073-40-03 04:51:00 Test Item Value Reference Range Interpretation Comments Lymphocytes (test code = Lymphocytes) 19.6 20.0-40.0 [facility] HospitalVcqsxphRXYUWJGSYI9735-15-36 04:51:00 Test Item Value Reference Range Interpretation Comments Lymphocytes # (test code = Lymphocytes 2.2 1.0-5.5 #) [facility] HospitalSywallsYZGKFOJRXY7571-34-67 04:51:00 Test Item Value Reference Range Interpretation Comments Segs (test code = Segs) 68.4 45.0-75.0 [facility] HospitalGzhqsqeUCWAUBIZGK5652-64-42 04:51:00 Test Item Value Reference Range Interpretation Comments Basophils # (test code 0.1 See_Comment [Aut omated message] The = Basophils #) system which generated this result tra nsmitted reference range : <=0.2. The reference r gilbert was not used to int erpret this result as normal/abnormal . [facility] HospitalJaridkhGUKIRCICAX1757-47-04 04:51:00 Test Item Value Reference Range Interpretation Comments Monocytes # (test code 1.1 See_Comment [Aut omated message] The = Monocytes #) system which generated this result tra nsmitted reference range : <=0.8. The reference r gilbert was not used to int erpret this result as normal/abnormal . [facility] HospitalJutdvdsCHCGTDKEZF5495-93-23 04:51:00 Test Item Value Reference Range Interpretation Comments WBC (test code = WBC) 11.5 3.7-10.4 [facility] HospitalWwfvkhcIESNKSIUOD0554-67-53 04:51:00 Test Item Value Reference Range Interpretation Comments MCH (test code = MCH) 28.0 pg 27.0-31.0 [facility] HospitalAiouujmRXTSLPCHPH7670-94-48 04:51:00 Test Item Value Reference Range Interpretation Comments MCV (test code = MCV) 85.6 80.0-94.0 [facility] HospitalJltvnwxOPOOMNYSEV5916-22-72 04:51:00 Test Item Value Reference Range Interpretation Comments RBC (test code = RBC) 5.35 4.70-6.10 [facility] HospitalQfzvvkwKHBEHBTRWQ6989-26-72 04:51:00 Test Item Value Reference Range Interpretation Comments Hct (test code = Hct) 45.8 42.0-54.0 [facility] HospitalFzxreuaHTYQJXODOO1291-76-92 04:51:00 Test Item Value Reference Range Interpretation Comments Hgb (test code = Hgb) 15.0 14.0-18.0 [facility] HospitalPgnqniaCUCMBNJQZB4242-15-71 04:51:00 Test Item Value Reference Range Interpretation Comments MPV (test code = MPV) 9.4 7.4-10.4 [facility] HospitalGbrvxqjWQYWDCCCMJ3494-24-36 04:51:00 Test Item Value Reference Range Interpretation Comments MCHC (test code = MCHC) 32.7 32.0-36.0 [facility] HospitalLfyivryISHSQTCRXY4649-51-67 04:51:00 Test Item Value Reference Range Interpretation Comments Platelet (test code = Platelet) 226 133-450 [facility] HospitalCjtktssRJFSWDZYTB4643-14-69 04:51:00 Test Item Value Reference Range Interpretation Comments RDW (test code = RDW) 13.7 11.5-14.5 [facility]2018-08-06 04:51:00 Test Item Value Reference Range Interpretation Comments UA Ketones (test code = UA Ketones) 80 mg/dL [facility] [id number] 04:51:00 Test Item Value Reference Range Interpretation Comments UA Glucose (test code = UA Negative mg/dL Glucose) [facility] [id number] 04:51:00 Test Item Value Reference Range Interpretation Comments UA Protein (test code = UA Negative mg/dL Protein) [facility] [id number] 04:51:00 Test Item Value Reference Range Interpretation Comments UA Sq Epi (test code = UA Sq Epi) None Seen [facility] [id number] 04:51:00 Test Item Value Reference Range Interpretation Comments UA Bacteria (test code = UA Occasional /HPF Bacteria) [facility]2018-08-06 04:51:00 Test Item Value Reference Range Interpretation Comments UA RBC (test code = 3 See_Comment [Automa jordana message] The UA RBC) system which ge nerated this result transmit jordana reference range : <=2. The reference range was not used to interpr et this result as les l/abnormal. [facility]2018-08-06 04:51:00 Test Item Value Reference Range Interpretation Comments UA WBC (test code = no gt See_Comment [Automa jordana message] The UA WBC) system which ge nerated this result transmit jordana reference range : <=5. The reference range was not used to interpr et this result as les l/abnormal. [facility] AND [id number] 04:51:00 Test Item Value Reference Range Interpretation Comments UA Leuk Est (test Negative (02/22/18 11:51 code = UA Leuk Est) PM) [facility] [id number] 04:51:00 Test Item Value Reference Range Interpretation Comments UA Nitrite (test code Positive *ABN*(02/22/18 = UA Nitrite) 11:51 PM) [facility] [id number] 04:51:00 Test Item Value Reference Range Interpretation Comments UA Urobilinogen (test code = UA 4.0 0.1-1.0 Urobilinogen) [facility] AND [id number] 04:51:00 Test Item Value Reference Range Interpretation Comments UA Blood (test code = Negative (02/22/18 11:51 UA Blood) PM) [facility] [id number] 04:51:00 Test Item Value Reference Range Interpretation Comments UA Bili (test code = Negative *NA*(02/22/18 UA Bili) 11:51 PM) [facility] [id number] 04:51:00 Test Item Value Reference Range Interpretation Comments UA pH (test code = UA pH) 6.0 1 5.0-8.0 [facility] [id number] 04:51:00 Test Item Value Reference Range Interpretation Comments UA Spec Grav (test code = UA Spec 1.023 1 Grav) [facility] [id number] 04:51:00 Test Item Value Reference Range Interpretation Comments UA Turbidity (test code = Clear (02/22/18 11:51 UA Turbidity) PM) [facility] [id number] 04:51:00 Test Item Value Reference Range Interpretation Comments UA Color (test code = Yellow *NA*(02/22/18 UA Color) 11:51 PM) [facility] [id number] 04:51:00 Test Item Value Reference Range Interpretation Comments Culture: Urine (test code = No Growth Culture: Urine) [facility]2017-12-22 10:36:00 Test Item Value Reference Range Interpretation Comments Globulin (test code = Globulin) 3.7 2.7-4.2 [facility]2017-12-22 10:36:00 Test Item Value Reference Range Interpretation Comments B/C Ratio (test code = B/C Ratio) 13 6-25 [facility]2017-12-22 10:36:00 Test Item Value Reference Range Interpretation Comments AGAP (test code = AGAP) 7.8 10.0-20.0 [facility]2017-12-22 10:36:00 Test Item Value Reference Range Interpretation Comments A/G Ratio (test code = A/G Ratio) 1.0 0.7-1.6 [facility]2017-12-22 10:36:00 Test Item Value Reference Range Interpretation Comments eGFR (test code = eGFR) 81 [facility]2017-12-22 10:36:00 Test Item Value Reference Range Interpretation Comments Bili Total (test code = Bili Total) 1.3 0.2-1.3 [facility]2017-12-22 10:36:00 Test Item Value Reference Range Interpretation Comments Alk Phos (test code = Alk Phos) 64 39-136 [facility]2017-12-22 10:36:00 Test Item Value Reference Range Interpretation Comments AST (test code = AST) 34 See_Comment [Auto mated message] The system which ge nerated this result transmit jordana reference range : <=37. The reference range was not used to interpr et this result as les l/abnormal. [facility]2017-12-22 10:36:00 Test Item Value Reference Range Interpretation Comments CO2 (test code = CO2) 30 24-32 [facility]2017-12-22 10:36:00 Test Item Value Reference Range Interpretation Comments Total Protein (test code = Total 7.3 6.4-8.4 Protein) [facility]2017-12-22 10:36:00 Test Item Value Reference Range Interpretation Comments Calcium Lvl (test code = Calcium Lvl) 8.4 8.5-10.5 [facility]2017-12-22 10:36:00 Test Item Value Reference Range Interpretation Comments Albumin Lvl (test code = Albumin Lvl) 3.6 3.5-5.0 [facility]2017-12-22 10:36:00 Test Item Value Reference Range Interpretation Comments Chloride Lvl (test code = Chloride Lvl) 103 95-109 [facility]2017-12-22 10:36:00 Test Item Value Reference Range Interpretation Comments ALT (test code = ALT) 61 See_Comment [Auto mated message] The system which ge nerated this result transmit jordana reference range : <=65. The reference range was not used to interpr et this result as les l/abnormal. [facility]2017-12-22 10:36:00 Test Item Value Reference Range Interpretation Comments Creatinine Lvl (test code = Creatinine 1.16 0.50-1.40 Lvl) [facility]2017-12-22 10:36:00 Test Item Value Reference Range Interpretation Comments Sodium Lvl (test code = Sodium Lvl) 137 135-145 [facility]2017-12-22 10:36:00 Test Item Value Reference Range Interpretation Comments Potassium Lvl (test code = Potassium 3.8 3.5-5.1 Lvl) [facility]2017-12-22 10:36:00 Test Item Value Reference Range Interpretation Comments BUN (test code = BUN) 15 7-22 [facility]2017-12-22 10:36:00 Test Item Value Reference Range Interpretation Comments Glucose Lvl (test code = Glucose Lvl) 90 70-99 [facility] HospitalIrbachzKSRYLMLYWO3238-22-09 10:36:00 Test Item Value Reference Range Interpretation Comments MPV (test code = MPV) 8.2 7.4-10.4 [facility] HospitalAdntwpqKKFNXGVPJJ6396-84-37 10:36:00 Test Item Value Reference Range Interpretation Comments Platelet (test code = Platelet) 260 133-450 [facility] HospitalYvdlrqzGGDFTSHEVR6001-62-21 10:36:00 Test Item Value Reference Range Interpretation Comments MCH (test code = MCH) 28.4 pg 27.0-31.0 [facility] HospitalKvhyremSQZPHNXMUZ8667-85-78 10:36:00 Test Item Value Reference Range Interpretation Comments RDW (test code = RDW) 13.3 11.5-14.5 [facility] HospitalJklazulNQSCVWHFFZ0426-37-60 10:36:00 Test Item Value Reference Range Interpretation Comments MCHC (test code = MCHC) 33.9 32.0-36.0 [facility] HospitalItsguvrRHEUYPRJDP7109-70-18 10:36:00 Test Item Value Reference Range Interpretation Comments Hgb (test code = Hgb) 14.4 14.0-18.0 [facility] HospitalTdbulrbPVEWLLKMAV3753-79-61 10:36:00 Test Item Value Reference Range Interpretation Comments WBC (test code = WBC) 9.3 3.7-10.4 [facility] HospitalNwycedqLAPDUPLJAM9922-50-95 10:36:00 Test Item Value Reference Range Interpretation Comments Hct (test code = Hct) 42.6 42.0-54.0 [facility] HospitalRwkrdnhKPAWALKVMF3839-85-18 10:36:00 Test Item Value Reference Range Interpretation Comments MCV (test code = MCV) 83.6 80.0-94.0 [facility] HospitalDmtpifxVETMOOCBSB2631-98-93 10:36:00 Test Item Value Reference Range Interpretation Comments RBC (test code = RBC) 5.09 4.70-6.10 [facility] HospitalGrmkguhVGTMRMEJIT1253-71-96 10:36:00 Test Item Value Reference Range Interpretation Comments Eosinophils (test code = 3.6 See_Comment [A utomated message] The Eosinophils) system which ge nerated this result tra nsmitted reference range : <=4.0. The reference r gilbert was not used to int erpret this result as normal/abnormal . [facility] HospitalNhsljkoAWWYLDXHRA2411-76-50 10:36:00 Test Item Value Reference Range Interpretation Comments Monocytes (test code = Monocytes) 10.7 2.0-12.0 [facility] HospitalBglssxzPVKLIEXPAK0793-14-73 10:36:00 Test Item Value Reference Range Interpretation Comments Monocytes # (test code 1.0 See_Comment [Aut omated message] The = Monocytes #) system which generated this result tra nsmitted reference range : <=0.8. The reference r gilbert was not used to int erpret this result as normal/abnormal . [facility] HospitalRkyejyyQYXYCOJHYY4719-01-88 10:36:00 Test Item Value Reference Range Interpretation Comments Lymphocytes # (test code = Lymphocytes 2.4 1.0-5.5 #) [place] [address]-12-22 10:36:00 Test Item Value Reference Range Interpretation Comments Segs-Bands # (test code = Segs-Bands #) 5.6 1.5-8.1 [facility] HospitalBuvbofzMBOANHGMJQ3753-28-04 10:36:00 Test Item Value Reference Range Interpretation Comments Segs (test code = Segs) 59.9 45.0-75.0 [facility] HospitalZhbgyypGFNMXRFLCG4208-86-07 10:36:00 Test Item Value Reference Range Interpretation Comments Lymphocytes (test code = Lymphocytes) 25.4 20.0-40.0 [facility] HospitalWcugrujQWLHDGUFZQ1085-76-96 10:36:00 Test Item Value Reference Range Interpretation Comments Basophils (test code = 0.4 See_Comment [Aut omated message] The Basophils) system which ge nerated this result tra nsmitted reference range : <=1.0. The reference r gilbert was not used to int erpret this result as normal/abnormal . [facility] HospitalDgnxbthTZHOMXRFIQ5436-98-83 10:36:00 Test Item Value Reference Range Interpretation Comments Eosinophils # (test code 0.3 See_Comment [A utomated message] The = Eosinophils #) system whic h generated this result tra nsmitted reference range : <=0.5. The reference r gilbert was not used to int erpret this result as normal/abnormal . [facility]2017-12-22 10:36:00 Test Item Value Reference Range Interpretation Comments Globulin (test code = Globulin) 3.7 2.7-4.2 [facility]2017-12-22 10:36:00 Test Item Value Reference Range Interpretation Comments B/C Ratio (test code = B/C Ratio) 13 6-25 [facility]2017-12-22 10:36:00 Test Item Value Reference Range Interpretation Comments AGAP (test code = AGAP) 7.8 10.0-20.0 [facility]2017-12-22 10:36:00 Test Item Value Reference Range Interpretation Comments A/G Ratio (test code = A/G Ratio) 1.0 0.7-1.6 [facility]2017-12-22 10:36:00 Test Item Value Reference Range Interpretation Comments eGFR (test code = eGFR) 81 [facility]2017-12-22 10:36:00 Test Item Value Reference Range Interpretation Comments Bili Total (test code = Bili Total) 1.3 0.2-1.3 [facility]2017-12-22 10:36:00 Test Item Value Reference Range Interpretation Comments Alk Phos (test code = Alk Phos) 64 39-136 [facility]2017-12-22 10:36:00 Test Item Value Reference Range Interpretation Comments AST (test code = AST) 34 See_Comment [Auto mated message] The system which ge nerated this result transmit jordana reference range : <=37. The reference range was not used to interpr et this result as les l/abnormal. [facility]2017-12-22 10:36:00 Test Item Value Reference Range Interpretation Comments CO2 (test code = CO2) 30 24-32 [facility]2017-12-22 10:36:00 Test Item Value Reference Range Interpretation Comments Total Protein (test code = Total 7.3 6.4-8.4 Protein) [facility]2017-12-22 10:36:00 Test Item Value Reference Range Interpretation Comments Calcium Lvl (test code = Calcium Lvl) 8.4 8.5-10.5 [facility]2017-12-22 10:36:00 Test Item Value Reference Range Interpretation Comments Albumin Lvl (test code = Albumin Lvl) 3.6 3.5-5.0 [facility]2017-12-22 10:36:00 Test Item Value Reference Range Interpretation Comments Chloride Lvl (test code = Chloride Lvl) 103 95-109 [facility]2017-12-22 10:36:00 Test Item Value Reference Range Interpretation Comments ALT (test code = ALT) 61 See_Comment [Auto mated message] The system which ge nerated this result transmit jordana reference range : <=65. The reference range was not used to interpr et this result as les l/abnormal. [facility]2017-12-22 10:36:00 Test Item Value Reference Range Interpretation Comments Creatinine Lvl (test code = Creatinine 1.16 0.50-1.40 Lvl) [facility]2017-12-22 10:36:00 Test Item Value Reference Range Interpretation Comments Sodium Lvl (test code = Sodium Lvl) 137 135-145 [facility]2017-12-22 10:36:00 Test Item Value Reference Range Interpretation Comments Potassium Lvl (test code = Potassium 3.8 3.5-5.1 Lvl) [facility]2017-12-22 10:36:00 Test Item Value Reference Range Interpretation Comments BUN (test code = BUN) 15 7-22 [facility]2017-12-22 10:36:00 Test Item Value Reference Range Interpretation Comments Glucose Lvl (test code = Glucose Lvl) 90 70-99 [facility] HospitalJatpngbZNJFKIWCTT3199-45-49 10:36:00 Test Item Value Reference Range Interpretation Comments MPV (test code = MPV) 8.2 7.4-10.4 [facility] HospitalDhbemuvRRUCUTNMNV4396-82-95 10:36:00 Test Item Value Reference Range Interpretation Comments Platelet (test code = Platelet) 260 133-450 [facility] HospitalTztavgeAVPHYGRRTV7560-33-22 10:36:00 Test Item Value Reference Range Interpretation Comments MCH (test code = MCH) 28.4 pg 27.0-31.0 [facility] HospitalPyeywotAAKFXHRHOH9865-50-74 10:36:00 Test Item Value Reference Range Interpretation Comments RDW (test code = RDW) 13.3 11.5-14.5 [facility] HospitalZbozbgcZKUSFOVUFE2561-44-46 10:36:00 Test Item Value Reference Range Interpretation Comments MCHC (test code = MCHC) 33.9 32.0-36.0 [facility] HospitalVulkinxYNDSBRQKUA4314-10-53 10:36:00 Test Item Value Reference Range Interpretation Comments Hgb (test code = Hgb) 14.4 14.0-18.0 [facility] HospitalHnsrbywMLPCUZRHGI5681-27-51 10:36:00 Test Item Value Reference Range Interpretation Comments WBC (test code = WBC) 9.3 3.7-10.4 [facility] HospitalBswnkmqOMCMZBSXZA8753-02-71 10:36:00 Test Item Value Reference Range Interpretation Comments Hct (test code = Hct) 42.6 42.0-54.0 [facility] HospitalWnprbewXVFAETTQBL5516-78-38 10:36:00 Test Item Value Reference Range Interpretation Comments MCV (test code = MCV) 83.6 80.0-94.0 [facility] HospitalCsyamzrUFRNEUNAPZ9644-13-80 10:36:00 Test Item Value Reference Range Interpretation Comments RBC (test code = RBC) 5.09 4.70-6.10 [facility] HospitalNkwkfpkEGMMARXSLO2066-59-02 10:36:00 Test Item Value Reference Range Interpretation Comments Eosinophils (test code = 3.6 See_Comment [A utomated message] The Eosinophils) system which ge nerated this result tra nsmitted reference range : <=4.0. The reference r gilbert was not used to int erpret this result as normal/abnormal . [facility] HospitalSczzcckCOOSXDDNVC3316-64-57 10:36:00 Test Item Value Reference Range Interpretation Comments Monocytes (test code = Monocytes) 10.7 2.0-12.0 [facility] HospitalPikhcetILFBGSIQSL9546-14-75 10:36:00 Test Item Value Reference Range Interpretation Comments Monocytes # (test code 1.0 See_Comment [Aut omated message] The = Monocytes #) system which generated this result tra nsmitted reference range : <=0.8. The reference r gilbert was not used to int erpret this result as normal/abnormal . [facility] HospitalNgayxheAFMCGOITPO7104-59-12 10:36:00 Test Item Value Reference Range Interpretation Comments Lymphocytes # (test code = Lymphocytes 2.4 1.0-5.5 #) [facility] HospitalPhnjeowPGAKOQQGVH9382-34-75 10:36:00 Test Item Value Reference Range Interpretation Comments Segs-Bands # (test code = Segs-Bands #) 5.6 1.5-8.1 [facility] HospitalWvwfgzaEGCAFGHBJO8117-51-39 10:36:00 Test Item Value Reference Range Interpretation Comments Segs (test code = Segs) 59.9 45.0-75.0 [facility] HospitalHokjxkxPKGTEEAKYA8664-72-76 10:36:00 Test Item Value Reference Range Interpretation Comments Lymphocytes (test code = Lymphocytes) 25.4 20.0-40.0 [facility] HospitalSsyxzykEVEXZMODOD6585-46-59 10:36:00 Test Item Value Reference Range Interpretation Comments Basophils (test code = 0.4 See_Comment [Aut omated message] The Basophils) system which ge nerated this result tra nsmitted reference range : <=1.0. The reference r gilbert was not used to int erpret this result as normal/abnormal . [facility] HospitalLudharaCZFMTXNTPU4347-59-81 10:36:00 Test Item Value Reference Range Interpretation Comments Eosinophils # (test code 0.3 See_Comment [A utomated message] The = Eosinophils #) system whic h generated this result tra nsmitted reference range : <=0.5. The reference r gilbert was not used to int erpret this result as normal/abnormal . [facility] [id number] 10:36:00 Test Item Value Reference Range Interpretation Comments Globulin (test code = Globulin) 3.7 2.7-4.2 [facility] [id number] 10:36:00 Test Item Value Reference Range Interpretation Comments B/C Ratio (test code = B/C Ratio) 13 6-25 [facility] [id number] 10:36:00 Test Item Value Reference Range Interpretation Comments AGAP (test code = AGAP) 7.8 10.0-20.0 [facility] [id number] 10:36:00 Test Item Value Reference Range Interpretation Comments A/G Ratio (test code = A/G Ratio) 1.0 0.7-1.6 [facility] [id number] 10:36:00 Test Item Value Reference Range Interpretation Comments eGFR (test code = eGFR) 81 [facility] [id number] 10:36:00 Test Item Value Reference Range Interpretation Comments Bili Total (test code = Bili Total) 1.3 0.2-1.3 [facility] [id number] 10:36:00 Test Item Value Reference Range Interpretation Comments Alk Phos (test code = Alk Phos) 64 39-136 [facility] [id number] 10:36:00 Test Item Value Reference Range Interpretation Comments AST (test code = AST) 34 See_Comment [Auto mated message] The system which ge nerated this result transmit jordana reference range : <=37. The reference range was not used to interpr et this result as les l/abnormal. [facility] [id number] 10:36:00 Test Item Value Reference Range Interpretation Comments CO2 (test code = CO2) 30 24-32 [facility]2017-12-22 10:36:00 Test Item Value Reference Range Interpretation Comments Total Protein (test code = Total 7.3 6.4-8.4 Protein) [facility]2017-12-22 10:36:00 Test Item Value Reference Range Interpretation Comments Calcium Lvl (test code = Calcium Lvl) 8.4 8.5-10.5 [facility]2017-12-22 10:36:00 Test Item Value Reference Range Interpretation Comments Albumin Lvl (test code = Albumin Lvl) 3.6 3.5-5.0 [facility]2017-12-22 10:36:00 Test Item Value Reference Range Interpretation Comments Chloride Lvl (test code = Chloride Lvl) 103 95-109 [facility]2017-12-22 10:36:00 Test Item Value Reference Range Interpretation Comments ALT (test code = ALT) 61 See_Comment [Auto mated message] The system which ge nerated this result transmit jordana reference range : <=65. The reference range was not used to interpr et this result as les l/abnormal. [facility]2017-12-22 10:36:00 Test Item Value Reference Range Interpretation Comments Creatinine Lvl (test code = Creatinine 1.16 0.50-1.40 Lvl) [facility]2017-12-22 10:36:00 Test Item Value Reference Range Interpretation Comments Sodium Lvl (test code = Sodium Lvl) 137 135-145 [facility]2017-12-22 10:36:00 Test Item Value Reference Range Interpretation Comments Potassium Lvl (test code = Potassium 3.8 3.5-5.1 Lvl) [facility]2017-12-22 10:36:00 Test Item Value Reference Range Interpretation Comments BUN (test code = BUN) 15 7-22 [facility]2017-12-22 10:36:00 Test Item Value Reference Range Interpretation Comments Glucose Lvl (test code = Glucose Lvl) 90 70-99 [facility]LypythjLZHJNBIZKA8458-79-80 10:36:00 Test Item Value Reference Range Interpretation Comments MPV (test code = MPV) 8.2 7.4-10.4 [facility] HospitalRpgeohbCARVYQNXGF7199-89-50 10:36:00 Test Item Value Reference Range Interpretation Comments Platelet (test code = Platelet) 260 133-450 [facility] HospitalXtahfwpWFRRKYHTXH7882-94-26 10:36:00 Test Item Value Reference Range Interpretation Comments MCH (test code = MCH) 28.4 pg 27.0-31.0 [facility] HospitalFjgjolsTRHUCKOTVG5194-61-39 10:36:00 Test Item Value Reference Range Interpretation Comments RDW (test code = RDW) 13.3 11.5-14.5 [facility] HospitalCqwtzhiLXPWOGEPAU1422-03-05 10:36:00 Test Item Value Reference Range Interpretation Comments MCHC (test code = MCHC) 33.9 32.0-36.0 [facility] HospitalBdkrrsuYFLRVMUJWY8025-42-51 10:36:00 Test Item Value Reference Range Interpretation Comments Hgb (test code = Hgb) 14.4 14.0-18.0 [facility] HospitalMyxycznXHZKKYBWZG5504-42-85 10:36:00 Test Item Value Reference Range Interpretation Comments WBC (test code = WBC) 9.3 3.7-10.4 [facility] HospitalHywzocnAARQEZMBFK7865-10-88 10:36:00 Test Item Value Reference Range Interpretation Comments Hct (test code = Hct) 42.6 42.0-54.0 [facility] HospitalXrixndhTQYHRKAXJD4175-67-05 10:36:00 Test Item Value Reference Range Interpretation Comments MCV (test code = MCV) 83.6 80.0-94.0 [facility] HospitalOnvsrtdJCRLLCRBFE4834-22-50 10:36:00 Test Item Value Reference Range Interpretation Comments RBC (test code = RBC) 5.09 4.70-6.10 [facility] HospitalIfutzjyQJMNOBJAHP9753-33-02 10:36:00 Test Item Value Reference Range Interpretation Comments Eosinophils (test code = 3.6 See_Comment [A utomated message] The Eosinophils) system which ge nerated this result tra nsmitted reference range : <=4.0. The reference r gilbert was not used to int erpret this result as normal/abnormal . [facility] HospitalZjycvgaIJWGNNSNUU9391-36-40 10:36:00 Test Item Value Reference Range Interpretation Comments Monocytes (test code = Monocytes) 10.7 2.0-12.0 [facility] HospitalLqxrzycFPMZFUZPKS8890-25-46 10:36:00 Test Item Value Reference Range Interpretation Comments Monocytes # (test code 1.0 See_Comment [Aut omated message] The = Monocytes #) system which generated this result tra nsmitted reference range : <=0.8. The reference r gilbert was not used to int erpret this result as normal/abnormal . [facility] HospitalGgbeuugCOFDPFGPYE5178-12-99 10:36:00 Test Item Value Reference Range Interpretation Comments Lymphocytes # (test code = Lymphocytes 2.4 1.0-5.5 #) [facility] HospitalDlvpnefWIAERINEOI3988-63-77 10:36:00 Test Item Value Reference Range Interpretation Comments Segs-Bands # (test code = Segs-Bands #) 5.6 1.5-8.1 [facility] HospitalQfoutdmJJJGUHQTUY1629-27-80 10:36:00 Test Item Value Reference Range Interpretation Comments Segs (test code = Segs) 59.9 45.0-75.0 [facility] HospitalXmarevqQYBYQJDCXJ2512-03-06 10:36:00 Test Item Value Reference Range Interpretation Comments Lymphocytes (test code = Lymphocytes) 25.4 20.0-40.0 [facility] HospitalXoqdiocLPGGXWVJTV8064-00-52 10:36:00 Test Item Value Reference Range Interpretation Comments Basophils (test code = 0.4 See_Comment [Aut omated message] The Basophils) system which ge nerated this result tra nsmitted reference range : <=1.0. The reference r gilbert was not used to int erpret this result as normal/abnormal . [facility] HospitalIkpcrawZFYWABYVLM1823-67-73 10:36:00 Test Item Value Reference Range Interpretation Comments Eosinophils # (test code 0.3 See_Comment [A utomated message] The = Eosinophils #) system whic h generated this result tra nsmitted reference range : <=0.5. The reference r gilbert was not used to int erpret this result as normal/abnormal . [facility]2017-12-22 10:36:00 Test Item Value Reference Range Interpretation Comments Globulin (test code = Globulin) 3.7 2.7-4.2 [facility]2017-12-22 10:36:00 Test Item Value Reference Range Interpretation Comments B/C Ratio (test code = B/C Ratio) 13 6-25 [facility]2017-12-22 10:36:00 Test Item Value Reference Range Interpretation Comments AGAP (test code = AGAP) 7.8 10.0-20.0 [facility]2017-12-22 10:36:00 Test Item Value Reference Range Interpretation Comments A/G Ratio (test code = A/G Ratio) 1.0 0.7-1.6 [facility]2017-12-22 10:36:00 Test Item Value Reference Range Interpretation Comments eGFR (test code = eGFR) 81 [facility]2017-12-22 10:36:00 Test Item Value Reference Range Interpretation Comments Bili Total (test code = Bili Total) 1.3 0.2-1.3 [facility]2017-12-22 10:36:00 Test Item Value Reference Range Interpretation Comments Alk Phos (test code = Alk Phos) 64 39-136 [facility]2017-12-22 10:36:00 Test Item Value Reference Range Interpretation Comments AST (test code = AST) 34 See_Comment [Auto mated message] The system which ge nerated this result transmit jordana reference range : <=37. The reference range was not used to interpr et this result as les l/abnormal. [facility]2017-12-22 10:36:00 Test Item Value Reference Range Interpretation Comments CO2 (test code = CO2) 30 24-32 [facility]2017-12-22 10:36:00 Test Item Value Reference Range Interpretation Comments Total Protein (test code = Total 7.3 6.4-8.4 Protein) [facility]2017-12-22 10:36:00 Test Item Value Reference Range Interpretation Comments Calcium Lvl (test code = Calcium Lvl) 8.4 8.5-10.5 [facility]2017-12-22 10:36:00 Test Item Value Reference Range Interpretation Comments Albumin Lvl (test code = Albumin Lvl) 3.6 3.5-5.0 [facility]2017-12-22 10:36:00 Test Item Value Reference Range Interpretation Comments Chloride Lvl (test code = Chloride Lvl) 103 95-109 [facility]2017-12-22 10:36:00 Test Item Value Reference Range Interpretation Comments ALT (test code = ALT) 61 See_Comment [Auto mated message] The system which ge nerated this result transmit jordana reference range : <=65. The reference range was not used to interpr et this result as les l/abnormal. [facility]2017-12-22 10:36:00 Test Item Value Reference Range Interpretation Comments Creatinine Lvl (test code = Creatinine 1.16 0.50-1.40 Lvl) [facility]2017-12-22 10:36:00 Test Item Value Reference Range Interpretation Comments Sodium Lvl (test code = Sodium Lvl) 137 135-145 [facility]2017-12-22 10:36:00 Test Item Value Reference Range Interpretation Comments Potassium Lvl (test code = Potassium 3.8 3.5-5.1 Lvl) [facility]2017-12-22 10:36:00 Test Item Value Reference Range Interpretation Comments BUN (test code = BUN) 15 7-22 [facility]2017-12-22 10:36:00 Test Item Value Reference Range Interpretation Comments Glucose Lvl (test code = Glucose Lvl) 90 70-99 [facility] HospitalTkcjkevITHFZLOCUQ1135-28-76 10:36:00 Test Item Value Reference Range Interpretation Comments MPV (test code = MPV) 8.2 7.4-10.4 [facility] HospitalBmifqyaOSBRUEJCHC7165-11-24 10:36:00 Test Item Value Reference Range Interpretation Comments Platelet (test code = Platelet) 260 133-450 [facility] HospitalZluydeuINWSZZLRIT8047-95-25 10:36:00 Test Item Value Reference Range Interpretation Comments MCH (test code = MCH) 28.4 pg 27.0-31.0 [facility] HospitalUavybayBCPXIAJLGA9176-39-59 10:36:00 Test Item Value Reference Range Interpretation Comments RDW (test code = RDW) 13.3 11.5-14.5 [facility] HospitalShozoygUUTWEOEMUN8342-71-46 10:36:00 Test Item Value Reference Range Interpretation Comments MCHC (test code = MCHC) 33.9 32.0-36.0 [facility] HospitalMsdmdqjAPZGGZGQEI3960-07-02 10:36:00 Test Item Value Reference Range Interpretation Comments Hgb (test code = Hgb) 14.4 14.0-18.0 [facility] HospitalGjdkwzbIJEHDVPEZJ3302-12-45 10:36:00 Test Item Value Reference Range Interpretation Comments WBC (test code = WBC) 9.3 3.7-10.4 [facility] HospitalOgnvbavKMUXBHITRS9742-91-28 10:36:00 Test Item Value Reference Range Interpretation Comments Hct (test code = Hct) 42.6 42.0-54.0 [facility] HospitalEjkqkxqKVGAFWMFIH5670-26-97 10:36:00 Test Item Value Reference Range Interpretation Comments MCV (test code = MCV) 83.6 80.0-94.0 [facility] HospitalJksbufyJVKZPTAOTW5715-23-24 10:36:00 Test Item Value Reference Range Interpretation Comments RBC (test code = RBC) 5.09 4.70-6.10 [facility] HospitalQynfyswDREOGQXHJH0047-56-45 10:36:00 Test Item Value Reference Range Interpretation Comments Eosinophils (test code = 3.6 See_Comment [A utomated message] The Eosinophils) system which ge nerated this result tra nsmitted reference range : <=4.0. The reference r gilbert was not used to int erpret this result as normal/abnormal . [facility] HospitalKoccpqsNJPZJAYBUS0781-28-76 10:36:00 Test Item Value Reference Range Interpretation Comments Monocytes (test code = Monocytes) 10.7 2.0-12.0 [facility] HospitalEnexehmYMZYNCEOXP6975-25-97 10:36:00 Test Item Value Reference Range Interpretation Comments Monocytes # (test code 1.0 See_Comment [Aut omated message] The = Monocytes #) system which generated this result tra nsmitted reference range : <=0.8. The reference r gilbert was not used to int erpret this result as normal/abnormal . [facility] HospitalZfeeeyoDGYHLQDUTV6588-03-22 10:36:00 Test Item Value Reference Range Interpretation Comments Lymphocytes # (test code = Lymphocytes 2.4 1.0-5.5 #) [facility] HospitalHsktssfPTKUPJLPDL1949-75-21 10:36:00 Test Item Value Reference Range Interpretation Comments Segs-Bands # (test code = Segs-Bands #) 5.6 1.5-8.1 [facility] HospitalRfqdajtYFTYHEZGJE0443-30-23 10:36:00 Test Item Value Reference Range Interpretation Comments Segs (test code = Segs) 59.9 45.0-75.0 [facility] HospitalSdrjvdeQXHIBTIGSV5662-47-52 10:36:00 Test Item Value Reference Range Interpretation Comments Lymphocytes (test code = Lymphocytes) 25.4 20.0-40.0 [facility] HospitalXxfgvwmBFIZRKJCHQ3318-91-26 10:36:00 Test Item Value Reference Range Interpretation Comments Basophils (test code = 0.4 See_Comment [Aut omated message] The Basophils) system which ge nerated this result tra nsmitted reference range : <=1.0. The reference r gilbert was not used to int erpret this result as normal/abnormal . [facility] HospitalUsekxjfPRHLFJBIDB7419-52-08 10:36:00 Test Item Value Reference Range Interpretation Comments Eosinophils # (test code 0.3 See_Comment [A utomated message] The = Eosinophils #) system whic h generated this result tra nsmitted reference range : <=0.5. The reference r gilbert was not used to int erpret this result as normal/abnormal . [facility]2017-12-21 11:45:00 Test Item Value Reference Range Interpretation Comments B/C Ratio (test code = B/C Ratio) 13 6-25 [facility]2017-12-21 11:45:00 Test Item Value Reference Range Interpretation Comments AGAP (test code = AGAP) 14.1 10.0-20.0 [facility]2017-12-21 11:45:00 Test Item Value Reference Range Interpretation Comments A/G Ratio (test code = A/G Ratio) 1.0 0.7-1.6 [facility]2017-12-21 11:45:00 Test Item Value Reference Range Interpretation Comments Globulin (test code = Globulin) 3.4 2.7-4.2 [facility]2017-12-21 11:45:00 Test Item Value Reference Range Interpretation Comments eGFR (test code = eGFR) 84 [facility]2017-12-21 11:45:00 Test Item Value Reference Range Interpretation Comments Bili Total (test code = Bili Total) 1.2 0.2-1.3 [facility]2017-12-21 11:45:00 Test Item Value Reference Range Interpretation Comments Alk Phos (test code = Alk Phos) 59 39-136 [facility]2017-12-21 11:45:00 Test Item Value Reference Range Interpretation Comments AST (test code = AST) 23 See_Comment [Auto mated message] The system which ge nerated this result transmit jordana reference range : <=37. The reference range was not used to interpr et this result as lse l/abnormal. [facility]2017-12-21 11:45:00 Test Item Value Reference Range Interpretation Comments ALT (test code = ALT) 53 See_Comment [Auto mated message] The system which ge nerated this result transmit jordana reference range : <=65. The reference range was not used to interpr et this result as les l/abnormal. [facility]2017-12-21 11:45:00 Test Item Value Reference Range Interpretation Comments Albumin Lvl (test code = Albumin Lvl) 3.3 3.5-5.0 [facility]2017-12-21 11:45:00 Test Item Value Reference Range Interpretation Comments Total Protein (test code = Total 6.7 6.4-8.4 Protein) [facility]2017-12-21 11:45:00 Test Item Value Reference Range Interpretation Comments Calcium Lvl (test code = Calcium Lvl) 8.4 8.5-10.5 [facility]2017-12-21 11:45:00 Test Item Value Reference Range Interpretation Comments Glucose Lvl (test code = Glucose Lvl) 80 70-99 [facility]2017-12-21 11:45:00 Test Item Value Reference Range Interpretation Comments BUN (test code = BUN) 15 7-22 [facility]2017-12-21 11:45:00 Test Item Value Reference Range Interpretation Comments Creatinine Lvl (test code = Creatinine 1.12 0.50-1.40 Lvl) [facility]2017-12-21 11:45:00 Test Item Value Reference Range Interpretation Comments Sodium Lvl (test code = Sodium Lvl) 141 135-145 [facility]2017-12-21 11:45:00 Test Item Value Reference Range Interpretation Comments Potassium Lvl (test code = Potassium 4.1 3.5-5.1 Lvl) [facility]2017-12-21 11:45:00 Test Item Value Reference Range Interpretation Comments Chloride Lvl (test code = Chloride Lvl) 101 95-109 [facility]2017-12-21 11:45:00 Test Item Value Reference Range Interpretation Comments CO2 (test code = CO2) 30 24-32 [facility] HospitalYamtbfqWTNDYKZKXC6146-20-00 11:45:00 Test Item Value Reference Range Interpretation Comments Segs (test code = Segs) 56.8 45.0-75.0 [facility] HospitalCxvaokzQFSRMCUHLL7342-61-58 11:45:00 Test Item Value Reference Range Interpretation Comments Lymphocytes (test code = Lymphocytes) 29.4 20.0-40.0 [facility] HospitalIhlznraLYVYXWBETW4911-71-37 11:45:00 Test Item Value Reference Range Interpretation Comments Monocytes (test code = Monocytes) 10.5 2.0-12.0 [facility] HospitalBloogztPPHSSDENVM3540-18-54 11:45:00 Test Item Value Reference Range Interpretation Comments Segs-Bands # (test code = Segs-Bands #) 4.5 1.5-8.1 [facility] HospitalRgxnwljANGFTWQNKP1908-41-27 11:45:00 Test Item Value Reference Range Interpretation Comments Eosinophils (test code = 2.9 See_Comment [A utomated message] The Eosinophils) system which ge nerated this result tra nsmitted reference range : <=4.0. The reference r gilbert was not used to int erpret this result as normal/abnormal . [facility] HospitalZwhvbitOZNSSLPEZU2543-47-04 11:45:00 Test Item Value Reference Range Interpretation Comments Eosinophils # (test code 0.2 See_Comment [A utomated message] The = Eosinophils #) system wh h generated this result tra nsmitted reference range : <=0.5. The reference r gilbert was not used to int erpret this result as normal/abnormal . [facility] HospitalFsuyzejHDZYUWBJJR4741-81-57 11:45:00 Test Item Value Reference Range Interpretation Comments Basophils (test code = 0.4 See_Comment [Aut omated message] The Basophils) system which ge nerated this result tra nsmitted reference range : <=1.0. The reference r gilbert was not used to int erpret this result as normal/abnormal . [facility] HospitalIzghmfaBHOYRSTIUA4101-14-23 11:45:00 Test Item Value Reference Range Interpretation Comments Lymphocytes # (test code = Lymphocytes 2.3 1.0-5.5 #) [facility] HospitalCazydgwCTJPBYNGOR3558-06-46 11:45:00 Test Item Value Reference Range Interpretation Comments Monocytes # (test code 0.8 See_Comment [Aut omated message] The = Monocytes #) system which generated this result tra nsmitted reference range : <=0.8. The reference r gilbert was not used to int erpret this result as normal/abnormal . [facility] HospitalMndqbwkXCUPLMXFJC3506-84-02 11:45:00 Test Item Value Reference Range Interpretation Comments MCV (test code = MCV) 83.7 80.0-94.0 [facility] HospitalRxiojkxZHVNBECOEB9576-15-35 11:45:00 Test Item Value Reference Range Interpretation Comments MPV (test code = MPV) 8.6 7.4-10.4 [facility] HospitalWdadllpEUPEBSUMFQ3926-78-65 11:45:00 Test Item Value Reference Range Interpretation Comments MCH (test code = MCH) 28.7 pg 27.0-31.0 [facility] HospitalShvcdjxLFKCBEOLIF3956-16-40 11:45:00 Test Item Value Reference Range Interpretation Comments Platelet (test code = Platelet) 246 133-450 [facility] HospitalEgdxuhqVWPHXZMRWN8140-27-99 11:45:00 Test Item Value Reference Range Interpretation Comments MCHC (test code = MCHC) 34.3 32.0-36.0 [facility] HospitalQxyxzovZIVUBQBQLZ4027-44-92 11:45:00 Test Item Value Reference Range Interpretation Comments RDW (test code = RDW) 13.4 11.5-14.5 [facility] HospitalItzyrfqWNGIMJNVMN4666-68-31 11:45:00 Test Item Value Reference Range Interpretation Comments Hgb (test code = Hgb) 13.2 14.0-18.0 [facility] HospitalGvozsaqNMFVKXGBZD0351-78-73 11:45:00 Test Item Value Reference Range Interpretation Comments WBC (test code = WBC) 7.9 3.7-10.4 [facility] HospitalJqlhrjyRLSXVBGFUY2626-82-29 11:45:00 Test Item Value Reference Range Interpretation Comments RBC (test code = RBC) 4.58 4.70-6.10 [facility] HospitalBiffupjUHSDDUDFOI1939-13-89 11:45:00 Test Item Value Reference Range Interpretation Comments Hct (test code = Hct) 38.4 42.0-54.0 [facility]2017-12-21 11:45:00 Test Item Value Reference Range Interpretation Comments B/C Ratio (test code = B/C Ratio) 13 6-25 [facility]2017-12-21 11:45:00 Test Item Value Reference Range Interpretation Comments AGAP (test code = AGAP) 14.1 10.0-20.0 [facility]2017-12-21 11:45:00 Test Item Value Reference Range Interpretation Comments A/G Ratio (test code = A/G Ratio) 1.0 0.7-1.6 [facility]2017-12-21 11:45:00 Test Item Value Reference Range Interpretation Comments Globulin (test code = Globulin) 3.4 2.7-4.2 [facility]2017-12-21 11:45:00 Test Item Value Reference Range Interpretation Comments eGFR (test code = eGFR) 84 [facility]2017-12-21 11:45:00 Test Item Value Reference Range Interpretation Comments Bili Total (test code = Bili Total) 1.2 0.2-1.3 [facility]2017-12-21 11:45:00 Test Item Value Reference Range Interpretation Comments Alk Phos (test code = Alk Phos) 59 39-136 [facility]2017-12-21 11:45:00 Test Item Value Reference Range Interpretation Comments AST (test code = AST) 23 See_Comment [Auto mated message] The system which ge nerated this result transmit jordana reference range : <=37. The reference range was not used to interpr et this result as les l/abnormal. [facility]2017-12-21 11:45:00 Test Item Value Reference Range Interpretation Comments ALT (test code = ALT) 53 See_Comment [Auto mated message] The system which ge nerated this result transmit jordana reference range : <=65. The reference range was not used to interpr et this result as les l/abnormal. [facility]2017-12-21 11:45:00 Test Item Value Reference Range Interpretation Comments Albumin Lvl (test code = Albumin Lvl) 3.3 3.5-5.0 [facility]2017-12-21 11:45:00 Test Item Value Reference Range Interpretation Comments Total Protein (test code = Total 6.7 6.4-8.4 Protein) [facility]2017-12-21 11:45:00 Test Item Value Reference Range Interpretation Comments Calcium Lvl (test code = Calcium Lvl) 8.4 8.5-10.5 [facility]2017-12-21 11:45:00 Test Item Value Reference Range Interpretation Comments Glucose Lvl (test code = Glucose Lvl) 80 70-99 [facility]2017-12-21 11:45:00 Test Item Value Reference Range Interpretation Comments BUN (test code = BUN) 15 7-22 [facility]2017-12-21 11:45:00 Test Item Value Reference Range Interpretation Comments Creatinine Lvl (test code = Creatinine 1.12 0.50-1.40 Lvl) [facility]2017-12-21 11:45:00 Test Item Value Reference Range Interpretation Comments Sodium Lvl (test code = Sodium Lvl) 141 135-145 [facility]2017-12-21 11:45:00 Test Item Value Reference Range Interpretation Comments Potassium Lvl (test code = Potassium 4.1 3.5-5.1 Lvl) [facility]2017-12-21 11:45:00 Test Item Value Reference Range Interpretation Comments Chloride Lvl (test code = Chloride Lvl) 101 95-109 [facility]2017-12-21 11:45:00 Test Item Value Reference Range Interpretation Comments CO2 (test code = CO2) 30 24-32 [facility] HospitalSedbzsdOHTLUSXGVE3928-23-97 11:45:00 Test Item Value Reference Range Interpretation Comments Segs (test code = Segs) 56.8 45.0-75.0 [facility] HospitalOdgzkwfBLXALIGLWX3873-45-67 11:45:00 Test Item Value Reference Range Interpretation Comments Lymphocytes (test code = Lymphocytes) 29.4 20.0-40.0 [facility] HospitalPggoopdRXQPGUIZEU6310-96-91 11:45:00 Test Item Value Reference Range Interpretation Comments Monocytes (test code = Monocytes) 10.5 2.0-12.0 [facility] HospitalTxelxjcFJKNIDDNLZ8144-53-67 11:45:00 Test Item Value Reference Range Interpretation Comments Segs-Bands # (test code = Segs-Bands #) 4.5 1.5-8.1 [facility]EpqzvbcBMWEFCJEGG8433-00-36 11:45:00 Test Item Value Reference Range Interpretation Comments Eosinophils (test code = 2.9 See_Comment [A utomated message] The Eosinophils) system which ge nerated this result tra nsmitted reference range : <=4.0. The reference r gilbert was not used to int erpret this result as normal/abnormal . [facility] HospitalBktrttaVNPXUEHLWO5088-99-66 11:45:00 Test Item Value Reference Range Interpretation Comments Eosinophils # (test code 0.2 See_Comment [A utomated message] The = Eosinophils #) system whic h generated this result tra nsmitted reference range : <=0.5. The reference r gilbert was not used to int erpret this result as normal/abnormal . [facility] HospitalOuofwokTJLMGOWZLW0050-90-36 11:45:00 Test Item Value Reference Range Interpretation Comments Basophils (test code = 0.4 See_Comment [Aut omated message] The Basophils) system which ge nerated this result tra nsmitted reference range : <=1.0. The reference r gilbert was not used to int erpret this result as normal/abnormal . [facility] HospitalLunqwptOLPOGVPBNF4285-74-04 11:45:00 Test Item Value Reference Range Interpretation Comments Lymphocytes # (test code = Lymphocytes 2.3 1.0-5.5 #) [facility] HospitalDraukruAKQYKYILFZ9078-73-42 11:45:00 Test Item Value Reference Range Interpretation Comments Monocytes # (test code 0.8 See_Comment [Aut omated message] The = Monocytes #) system which generated this result tra nsmitted reference range : <=0.8. The reference r gilbert was not used to int erpret this result as normal/abnormal . [facility] HospitalYmbzrgwFMPBWRULDC0049-52-25 11:45:00 Test Item Value Reference Range Interpretation Comments MCV (test code = MCV) 83.7 80.0-94.0 [facility] HospitalNkcoqtmMWJHBGVPWK2576-26-56 11:45:00 Test Item Value Reference Range Interpretation Comments MPV (test code = MPV) 8.6 7.4-10.4 [facility] HospitalAkwygbtTJLTPVRVCT7042-19-56 11:45:00 Test Item Value Reference Range Interpretation Comments MCH (test code = MCH) 28.7 pg 27.0-31.0 [facility] HospitalFzgzyxqBVVBWZBVSF3990-94-36 11:45:00 Test Item Value Reference Range Interpretation Comments Platelet (test code = Platelet) 246 133-450 [facility] HospitalRkpcnhlITHWABVTSP3464-67-01 11:45:00 Test Item Value Reference Range Interpretation Comments MCHC (test code = MCHC) 34.3 32.0-36.0 [facility] HospitalInyfkkxOGZZNNRTUX2783-31-29 11:45:00 Test Item Value Reference Range Interpretation Comments RDW (test code = RDW) 13.4 11.5-14.5 [facility] HospitalOljmxucICTULIZWYX6648-87-38 11:45:00 Test Item Value Reference Range Interpretation Comments Hgb (test code = Hgb) 13.2 14.0-18.0 [facility] HospitalUcezmpiHSENCSGGSJ7912-14-24 11:45:00 Test Item Value Reference Range Interpretation Comments WBC (test code = WBC) 7.9 3.7-10.4 [facility] HospitalFmuqwsfMVCKWUENZB1763-84-43 11:45:00 Test Item Value Reference Range Interpretation Comments RBC (test code = RBC) 4.58 4.70-6.10 [facility] HospitalVzeecslZESPHJFDOM8340-81-19 11:45:00 Test Item Value Reference Range Interpretation Comments Hct (test code = Hct) 38.4 42.0-54.0 [facility]2017-12-21 11:45:00 Test Item Value Reference Range Interpretation Comments B/C Ratio (test code = B/C Ratio) 13 6-25 [facility]2017-12-21 11:45:00 Test Item Value Reference Range Interpretation Comments AGAP (test code = AGAP) 14.1 10.0-20.0 [facility]2017-12-21 11:45:00 Test Item Value Reference Range Interpretation Comments A/G Ratio (test code = A/G Ratio) 1.0 0.7-1.6 [facility]2017-12-21 11:45:00 Test Item Value Reference Range Interpretation Comments Globulin (test code = Globulin) 3.4 2.7-4.2 [facility]2017-12-21 11:45:00 Test Item Value Reference Range Interpretation Comments eGFR (test code = eGFR) 84 [facility]2017-12-21 11:45:00 Test Item Value Reference Range Interpretation Comments Bili Total (test code = Bili Total) 1.2 0.2-1.3 [facility]2017-12-21 11:45:00 Test Item Value Reference Range Interpretation Comments Alk Phos (test code = Alk Phos) 59 39-136 [facility]2017-12-21 11:45:00 Test Item Value Reference Range Interpretation Comments AST (test code = AST) 23 See_Comment [Auto mated message] The system which ge nerated this result transmit jordana reference range : <=37. The reference range was not used to interpr et this result as les l/abnormal. [facility]2017-12-21 11:45:00 Test Item Value Reference Range Interpretation Comments ALT (test code = ALT) 53 See_Comment [Auto mated message] The system which ge nerated this result transmit jordana reference range : <=65. The reference range was not used to interpr et this result as les l/abnormal. [facility]2017-12-21 11:45:00 Test Item Value Reference Range Interpretation Comments Albumin Lvl (test code = Albumin Lvl) 3.3 3.5-5.0 [facility]2017-12-21 11:45:00 Test Item Value Reference Range Interpretation Comments Total Protein (test code = Total 6.7 6.4-8.4 Protein) [facility]2017-12-21 11:45:00 Test Item Value Reference Range Interpretation Comments Calcium Lvl (test code = Calcium Lvl) 8.4 8.5-10.5 [facility]2017-12-21 11:45:00 Test Item Value Reference Range Interpretation Comments Glucose Lvl (test code = Glucose Lvl) 80 70-99 [facility]2017-12-21 11:45:00 Test Item Value Reference Range Interpretation Comments BUN (test code = BUN) 15 7-22 [facility]2017-12-21 11:45:00 Test Item Value Reference Range Interpretation Comments Creatinine Lvl (test code = Creatinine 1.12 0.50-1.40 Lvl) [facility]2017-12-21 11:45:00 Test Item Value Reference Range Interpretation Comments Sodium Lvl (test code = Sodium Lvl) 141 135-145 [facility]2017-12-21 11:45:00 Test Item Value Reference Range Interpretation Comments Potassium Lvl (test code = Potassium 4.1 3.5-5.1 Lvl) [facility]2017-12-21 11:45:00 Test Item Value Reference Range Interpretation Comments Chloride Lvl (test code = Chloride Lvl) 101 95-109 [facility]2017-12-21 11:45:00 Test Item Value Reference Range Interpretation Comments CO2 (test code = CO2) 30 24-32 [facility]LuwhexdXLMKQDWGXP0624-95-88 11:45:00 Test Item Value Reference Range Interpretation Comments Segs (test code = Segs) 56.8 45.0-75.0 [facility] HospitalPzzxwbfUYQORKTTAG6746-68-13 11:45:00 Test Item Value Reference Range Interpretation Comments Lymphocytes (test code = Lymphocytes) 29.4 20.0-40.0 [facility] HospitalCjczpqgARTLQKWXEB4179-09-75 11:45:00 Test Item Value Reference Range Interpretation Comments Monocytes (test code = Monocytes) 10.5 2.0-12.0 [facility] HospitalAklfareHOAVNBGQPR7895-10-98 11:45:00 Test Item Value Reference Range Interpretation Comments Segs-Bands # (test code = Segs-Bands #) 4.5 1.5-8.1 [facility] HospitalXhwxwbmIUOLMRGJLU2744-46-05 11:45:00 Test Item Value Reference Range Interpretation Comments Eosinophils (test code = 2.9 See_Comment [A utomated message] The Eosinophils) system which ge nerated this result tra nsmitted reference range : <=4.0. The reference r gilbert was not used to int erpret this result as normal/abnormal . [facility] HospitalCpacriqORJPHUUXFD2881-95-12 11:45:00 Test Item Value Reference Range Interpretation Comments Eosinophils # (test code 0.2 See_Comment [A utomated message] The = Eosinophils #) system wh h generated this result tra nsmitted reference range : <=0.5. The reference r gilbert was not used to int erpret this result as normal/abnormal . [facility] HospitalPwjevtvRSMFHVATTY7152-66-92 11:45:00 Test Item Value Reference Range Interpretation Comments Basophils (test code = 0.4 See_Comment [Aut omated message] The Basophils) system which ge nerated this result tra nsmitted reference range : <=1.0. The reference r gilbert was not used to int erpret this result as normal/abnormal . [facility] HospitalBgntbxhWMXLSXSYBQ4612-13-31 11:45:00 Test Item Value Reference Range Interpretation Comments Lymphocytes # (test code = Lymphocytes 2.3 1.0-5.5 #) [facility] HospitalGoeuqotINRAAXWSSM6961-13-84 11:45:00 Test Item Value Reference Range Interpretation Comments Monocytes # (test code 0.8 See_Comment [Aut omated message] The = Monocytes #) system which generated this result tra nsmitted reference range : <=0.8. The reference r gilbert was not used to int erpret this result as normal/abnormal . [facility] HospitalMlmufruOISRNEXNPB2378-82-78 11:45:00 Test Item Value Reference Range Interpretation Comments MCV (test code = MCV) 83.7 80.0-94.0 [facility] HospitalPpcupepDXHCPKYBAF0987-02-99 11:45:00 Test Item Value Reference Range Interpretation Comments MPV (test code = MPV) 8.6 7.4-10.4 [facility] HospitalHlevzujOMBCAWSJYJ0679-29-90 11:45:00 Test Item Value Reference Range Interpretation Comments MCH (test code = MCH) 28.7 pg 27.0-31.0 [facility] HospitalTxvlfuqSWLMJBKSRF0801-24-71 11:45:00 Test Item Value Reference Range Interpretation Comments Platelet (test code = Platelet) 246 133-450 [facility] HospitalStiybkmWCCUCVIZFS7092-08-03 11:45:00 Test Item Value Reference Range Interpretation Comments MCHC (test code = MCHC) 34.3 32.0-36.0 [facility] HospitalFxciwadCYCWFRZMHD6421-26-17 11:45:00 Test Item Value Reference Range Interpretation Comments RDW (test code = RDW) 13.4 11.5-14.5 [facility] HospitalSgphiacMLINUTGGTI5954-80-56 11:45:00 Test Item Value Reference Range Interpretation Comments Hgb (test code = Hgb) 13.2 14.0-18.0 [facility] HospitalOgsjqwpXPCLWADOMA4632-79-26 11:45:00 Test Item Value Reference Range Interpretation Comments WBC (test code = WBC) 7.9 3.7-10.4 [facility] HospitalTaqcfstGUCWRJMQYR6062-30-73 11:45:00 Test Item Value Reference Range Interpretation Comments RBC (test code = RBC) 4.58 4.70-6.10 [facility] HospitalGimbsvjFMELSMAXFC4214-75-64 11:45:00 Test Item Value Reference Range Interpretation Comments Hct (test code = Hct) 38.4 42.0-54.0 [facility]2017-12-21 11:45:00 Test Item Value Reference Range Interpretation Comments B/C Ratio (test code = B/C Ratio) 13 6-25 [facility] HQWBN4205-54-76 11:45:00 Test Item Value Reference Range Interpretation Comments AGAP (test code = AGAP) 14.1 10.0-20.0 [facility]2017-12-21 11:45:00 Test Item Value Reference Range Interpretation Comments A/G Ratio (test code = A/G Ratio) 1.0 0.7-1.6 [place] 983367-12-21 11:45:00 Test Item Value Reference Range Interpretation Comments Globulin (test code = Globulin) 3.4 2.7-4.2 [facility]2017-12-21 11:45:00 Test Item Value Reference Range Interpretation Comments eGFR (test code = eGFR) 84 [facility]2017-12-21 11:45:00 Test Item Value Reference Range Interpretation Comments Bili Total (test code = Bili Total) 1.2 0.2-1.3 [facility]2017-12-21 11:45:00 Test Item Value Reference Range Interpretation Comments Alk Phos (test code = Alk Phos) 59 39-136 [facility]2017-12-21 11:45:00 Test Item Value Reference Range Interpretation Comments AST (test code = AST) 23 See_Comment [Auto mated message] The system which ge nerated this result transmit jordana reference range : <=37. The reference range was not used to interpr et this result as les l/abnormal. [facility]2017-12-21 11:45:00 Test Item Value Reference Range Interpretation Comments ALT (test code = ALT) 53 See_Comment [Auto mated message] The system which ge nerated this result transmit jordana reference range : <=65. The reference range was not used to interpr et this result as les l/abnormal. [facility]2017-12-21 11:45:00 Test Item Value Reference Range Interpretation Comments Albumin Lvl (test code = Albumin Lvl) 3.3 3.5-5.0 [facility]2017-12-21 11:45:00 Test Item Value Reference Range Interpretation Comments Total Protein (test code = Total 6.7 6.4-8.4 Protein) [facility]2017-12-21 11:45:00 Test Item Value Reference Range Interpretation Comments Calcium Lvl (test code = Calcium Lvl) 8.4 8.5-10.5 [place] 983367-12-21 11:45:00 Test Item Value Reference Range Interpretation Comments Glucose Lvl (test code = Glucose Lvl) 80 70-99 [facility]2017-12-21 11:45:00 Test Item Value Reference Range Interpretation Comments BUN (test code = BUN) 15 7-22 [facility]2017-12-21 11:45:00 Test Item Value Reference Range Interpretation Comments Creatinine Lvl (test code = Creatinine 1.12 0.50-1.40 Lvl) [facility]2017-12-21 11:45:00 Test Item Value Reference Range Interpretation Comments Sodium Lvl (test code = Sodium Lvl) 141 135-145 [facility]2017-12-21 11:45:00 Test Item Value Reference Range Interpretation Comments Potassium Lvl (test code = Potassium 4.1 3.5-5.1 Lvl) [facility]2017-12-21 11:45:00 Test Item Value Reference Range Interpretation Comments Chloride Lvl (test code = Chloride Lvl) 101 95-109 [facility]2017-12-21 11:45:00 Test Item Value Reference Range Interpretation Comments CO2 (test code = CO2) 30 24-32 [facility] HospitalRxzsoafXMIJSIZWSY0506-92-07 11:45:00 Test Item Value Reference Range Interpretation Comments Segs (test code = Segs) 56.8 45.0-75.0 [facility] HospitalPudywuuASNLFKCIHZ7530-83-82 11:45:00 Test Item Value Reference Range Interpretation Comments Lymphocytes (test code = Lymphocytes) 29.4 20.0-40.0 [facility] HospitalLaurenxOEEYXIZPYI6796-06-22 11:45:00 Test Item Value Reference Range Interpretation Comments Monocytes (test code = Monocytes) 10.5 2.0-12.0 [facility] HospitalSmmhxmiMMMKKBZCAV5239-83-43 11:45:00 Test Item Value Reference Range Interpretation Comments Segs-Bands # (test code = Segs-Bands #) 4.5 1.5-8.1 [facility] HospitalOqankmmGNKXMKSPCL5496-70-46 11:45:00 Test Item Value Reference Range Interpretation Comments Eosinophils (test code = 2.9 See_Comment [A utomated message] The Eosinophils) system which ge nerated this result tra nsmitted reference range : <=4.0. The reference r gilbert was not used to int erpret this result as normal/abnormal . [facility] HospitalWjxipfoQABCCFCANK9603-60-04 11:45:00 Test Item Value Reference Range Interpretation Comments Eosinophils # (test code 0.2 See_Comment [A utomated message] The = Eosinophils #) system whic h generated this result tra nsmitted reference range : <=0.5. The reference r gilbert was not used to int erpret this result as normal/abnormal . [facility] HospitalMkcapbbWRCRVQFRCH8388-34-73 11:45:00 Test Item Value Reference Range Interpretation Comments Basophils (test code = 0.4 See_Comment [Aut omated message] The Basophils) system which ge nerated this result tra nsmitted reference range : <=1.0. The reference r gilbert was not used to int erpret this result as normal/abnormal . [facility] HospitalFsoyixsEKLCYYXFJY7777-66-69 11:45:00 Test Item Value Reference Range Interpretation Comments Lymphocytes # (test code = Lymphocytes 2.3 1.0-5.5 #) [facility] HospitalWvpoejqGSPSGTSAEZ5450-93-91 11:45:00 Test Item Value Reference Range Interpretation Comments Monocytes # (test code 0.8 See_Comment [Aut omated message] The = Monocytes #) system which generated this result tra nsmitted reference range : <=0.8. The reference r gilbert was not used to int erpret this result as normal/abnormal . [facility] HospitalNabfmxcSVFOAKQTJX8459-48-88 11:45:00 Test Item Value Reference Range Interpretation Comments MCV (test code = MCV) 83.7 80.0-94.0 [facility] HospitalLjcnfsuFHHKAHUJXK7368-92-32 11:45:00 Test Item Value Reference Range Interpretation Comments MPV (test code = MPV) 8.6 7.4-10.4 [facility] HospitalXmogexzQEUWWKMBKM2790-96-08 11:45:00 Test Item Value Reference Range Interpretation Comments MCH (test code = MCH) 28.7 pg 27.0-31.0 [facility] HospitalRnzulgaIFYPMYYQEL3031-72-03 11:45:00 Test Item Value Reference Range Interpretation Comments Platelet (test code = Platelet) 246 133-450 [facility] HospitalUjwpeanDPPOBVJBEL9524-11-54 11:45:00 Test Item Value Reference Range Interpretation Comments MCHC (test code = MCHC) 34.3 32.0-36.0 [facility] HospitalEyekvbgRZXTOVADCV1075-33-98 11:45:00 Test Item Value Reference Range Interpretation Comments RDW (test code = RDW) 13.4 11.5-14.5 [facility] HospitalHtgclyzBLTSZMFBHD2302-61-89 11:45:00 Test Item Value Reference Range Interpretation Comments Hgb (test code = Hgb) 13.2 14.0-18.0 [facility] HospitalCioqehkRVSWUTPMVR9172-12-86 11:45:00 Test Item Value Reference Range Interpretation Comments WBC (test code = WBC) 7.9 3.7-10.4 [facility] HospitalXxqntthJNLCAPDPXX3496-87-09 11:45:00 Test Item Value Reference Range Interpretation Comments RBC (test code = RBC) 4.58 4.70-6.10 [facility] HospitalUewkjmdTKZJLDMEOF0649-11-72 11:45:00 Test Item Value Reference Range Interpretation Comments Hct (test code = Hct) 38.4 42.0-54.0 [facility]2017-12-20 12:57:41 Test Item Value Reference Range Interpretation Comments Amylase Lvl (test code = Amylase Lvl) 37 25-115 [facility] HospitalSghvlhwPXFRMSTBJJ0416-24-44 12:57:41 Test Item Value Reference Range Interpretation Comments Segs (test code = Segs) 47.1 45.0-75.0 [facility] HospitalTzxboroNCFYVTDRYR4763-91-44 12:57:41 Test Item Value Reference Range Interpretation Comments Segs-Bands # (test code = Segs-Bands #) 2.7 1.5-8.1 [facility] HospitalHgndupsSNFVRMLOKD5665-75-12 12:57:41 Test Item Value Reference Range Interpretation Comments Lymphocytes (test code = Lymphocytes) 34.9 20.0-40.0 [facility] HospitalVybwqujJCERXGYCQP4048-62-82 12:57:41 Test Item Value Reference Range Interpretation Comments Eosinophils (test code = 4.6 See_Comment [A utomated message] The Eosinophils) system which ge nerated this result tra nsmitted reference range : <=4.0. The reference r gilbert was not used to int erpret this result as normal/abnormal . [facility] HospitalZevfdlvBLNQIRVTFH9126-07-98 12:57:41 Test Item Value Reference Range Interpretation Comments Monocytes (test code = Monocytes) 13.0 2.0-12.0 [place] 438237-12-20 12:57:41 Test Item Value Reference Range Interpretation Comments Basophils (test code = 0.4 See_Comment [Aut omated message] The Basophils) system which ge nerated this result tra nsmitted reference range : <=1.0. The reference r gilbert was not used to int erpret this result as normal/abnormal . [facility] HospitalRxaqlfqHEBOAXQNMW5244-00-50 12:57:41 Test Item Value Reference Range Interpretation Comments Lymphocytes # (test code = Lymphocytes 2.0 1.0-5.5 #) [facility] HospitalKmxgatzVAAUUVFODS0938-28-08 12:57:41 Test Item Value Reference Range Interpretation Comments Eosinophils # (test code 0.3 See_Comment [A utomated message] The = Eosinophils #) system whic h generated this result tra nsmitted reference range : <=0.5. The reference r gilbert was not used to int erpret this result as normal/abnormal . [facility] HospitalQfmlnnoOWPQAUWZRK9933-08-87 12:57:41 Test Item Value Reference Range Interpretation Comments Monocytes # (test code 0.7 See_Comment [Aut omated message] The = Monocytes #) system which generated this result tra nsmitted reference range : <=0.8. The reference r gilbert was not used to int erpret this result as normal/abnormal . [facility] HospitalJgdmeoxKRHXBBESTI2114-66-88 12:57:41 Test Item Value Reference Range Interpretation Comments MPV (test code = MPV) 8.3 7.4-10.4 [facility] HospitalKudltiiYOKBNGTAFD8912-81-29 12:57:41 Test Item Value Reference Range Interpretation Comments WBC (test code = WBC) 5.7 3.7-10.4 [facility] HospitalGdxwhotSXVGNTZXPO5450-21-97 12:57:41 Test Item Value Reference Range Interpretation Comments RBC (test code = RBC) 4.43 4.70-6.10 [facility] HospitalIhlnsotWNBNEMRVXY0428-50-66 12:57:41 Test Item Value Reference Range Interpretation Comments Hgb (test code = Hgb) 12.8 14.0-18.0 [facility] HospitalDmbhgjsUATYQJPMTV4940-73-40 12:57:41 Test Item Value Reference Range Interpretation Comments MCH (test code = MCH) 29.0 pg 27.0-31.0 [facility] HospitalIqspkyrVAVSCUABGC9412-06-37 12:57:41 Test Item Value Reference Range Interpretation Comments MCV (test code = MCV) 84.0 80.0-94.0 [facility] HospitalDkfqhrrZQAWUZQJBD8507-86-01 12:57:41 Test Item Value Reference Range Interpretation Comments Hct (test code = Hct) 37.2 42.0-54.0 [facility] HospitalGyijyykSJTSSVNVCK5227-18-22 12:57:41 Test Item Value Reference Range Interpretation Comments RDW (test code = RDW) 13.5 11.5-14.5 [facility] HospitalCnkazclVRFSYBIOEN8698-33-51 12:57:41 Test Item Value Reference Range Interpretation Comments MCHC (test code = MCHC) 34.5 32.0-36.0 [facility] HospitalGnmrzcsXIWXWOCYVK2714-19-94 12:57:41 Test Item Value Reference Range Interpretation Comments Platelet (test code = Platelet) 216 133-450 [facility]2017-12-20 12:57:41 Test Item Value Reference Range Interpretation Comments Amylase Lvl (test code = Amylase Lvl) 37 25-115 [facility] HospitalPzhlkcpJJZRRSTHEI0678-67-82 12:57:41 Test Item Value Reference Range Interpretation Comments Segs (test code = Segs) 47.1 45.0-75.0 [facility] HospitalEctuqwrPQJGQLSOOY4076-66-08 12:57:41 Test Item Value Reference Range Interpretation Comments Segs-Bands # (test code = Segs-Bands #) 2.7 1.5-8.1 [facility] HospitalNnxpzkwXEEHIYZTTE7732-26-58 12:57:41 Test Item Value Reference Range Interpretation Comments Lymphocytes (test code = Lymphocytes) 34.9 20.0-40.0 [facility] HospitalHdamywrYWWIULRRIZ5031-32-94 12:57:41 Test Item Value Reference Range Interpretation Comments Eosinophils (test code = 4.6 See_Comment [A utomated message] The Eosinophils) system which ge nerated this result tra nsmitted reference range : <=4.0. The reference r gilbert was not used to int erpret this result as normal/abnormal . [facility] HospitalOuvckphGBNJDKFZCQ3751-33-57 12:57:41 Test Item Value Reference Range Interpretation Comments Monocytes (test code = Monocytes) 13.0 2.0-12.0 [facility] HospitalCtgiivnHKIETIFFWA0870-35-65 12:57:41 Test Item Value Reference Range Interpretation Comments Basophils (test code = 0.4 See_Comment [Aut omated message] The Basophils) system which ge nerated this result tra nsmitted reference range : <=1.0. The reference r gilbert was not used to int erpret this result as normal/abnormal . [facility] HospitalMzcacldQLJHRPONXR5801-92-60 12:57:41 Test Item Value Reference Range Interpretation Comments Lymphocytes # (test code = Lymphocytes 2.0 1.0-5.5 #) [facility] HospitalWuiwclcYTVWIWCKPR2048-75-19 12:57:41 Test Item Value Reference Range Interpretation Comments Eosinophils # (test code 0.3 See_Comment [A utomated message] The = Eosinophils #) system whic h generated this result tra nsmitted reference range : <=0.5. The reference r gilbert was not used to int erpret this result as normal/abnormal . [facility] HospitalQvwwwmgUONUQEZCXC5764-76-99 12:57:41 Test Item Value Reference Range Interpretation Comments Monocytes # (test code 0.7 See_Comment [Aut omated message] The = Monocytes #) system which generated this result tra nsmitted reference range : <=0.8. The reference r gilbert was not used to int erpret this result as normal/abnormal . [facility] HospitalAaawstdJSZDLWZMUX8655-02-33 12:57:41 Test Item Value Reference Range Interpretation Comments MPV (test code = MPV) 8.3 7.4-10.4 [facility] HospitalMswjfalMBAQKYGIKU6835-11-66 12:57:41 Test Item Value Reference Range Interpretation Comments WBC (test code = WBC) 5.7 3.7-10.4 [facility]UvphaliROGDOQFSEH8489-33-80 12:57:41 Test Item Value Reference Range Interpretation Comments RBC (test code = RBC) 4.43 4.70-6.10 [facility] HospitalTwyacstIHDELPXEVT1319-40-32 12:57:41 Test Item Value Reference Range Interpretation Comments Hgb (test code = Hgb) 12.8 14.0-18.0 [facility] HospitalZqywiksQMZSSYAEJS4758-65-26 12:57:41 Test Item Value Reference Range Interpretation Comments MCH (test code = MCH) 29.0 pg 27.0-31.0 [facility] HospitalToyhulwZTYAEBQQDO1318-77-00 12:57:41 Test Item Value Reference Range Interpretation Comments MCV (test code = MCV) 84.0 80.0-94.0 [facility] HospitalMqwmketKBFXPHKJBU0309-23-70 12:57:41 Test Item Value Reference Range Interpretation Comments Hct (test code = Hct) 37.2 42.0-54.0 [facility] HospitalNojiyqhZNRSHQWNYK0368-75-67 12:57:41 Test Item Value Reference Range Interpretation Comments RDW (test code = RDW) 13.5 11.5-14.5 [facility] HospitalTjvexrbOKFLPAJQXF0533-11-33 12:57:41 Test Item Value Reference Range Interpretation Comments MCHC (test code = MCHC) 34.5 32.0-36.0 [facility] HospitalHkhesnaMSSCQYJBBB5419-02-45 12:57:41 Test Item Value Reference Range Interpretation Comments Platelet (test code = Platelet) 216 133-450 [facility] VCFYZ8988-17-26 12:57:41 Test Item Value Reference Range Interpretation Comments Amylase Lvl (test code = Amylase Lvl) 37 25-115 [facility] HospitalXfggywhEFUFKRUMON7180-59-56 12:57:41 Test Item Value Reference Range Interpretation Comments Segs (test code = Segs) 47.1 45.0-75.0 [facility] HospitalOsmxxtgZFNWTGDHVE1627-67-82 12:57:41 Test Item Value Reference Range Interpretation Comments Segs-Bands # (test code = Segs-Bands #) 2.7 1.5-8.1 [facility] HospitalTzohqgbJILGVHODVB2348-07-62 12:57:41 Test Item Value Reference Range Interpretation Comments Lymphocytes (test code = Lymphocytes) 34.9 20.0-40.0 [facility] HospitalVcwmybsTMGNBATMUQ2064-77-70 12:57:41 Test Item Value Reference Range Interpretation Comments Eosinophils (test code = 4.6 See_Comment [A utomated message] The Eosinophils) system which ge nerated this result tra nsmitted reference range : <=4.0. The reference r gilbert was not used to int erpret this result as normal/abnormal . [facility] HospitalEwwqrjsLLRBTDBONX3637-67-65 12:57:41 Test Item Value Reference Range Interpretation Comments Monocytes (test code = Monocytes) 13.0 2.0-12.0 [facility] HospitalXihzfqjRVGMGYVIGL1632-41-62 12:57:41 Test Item Value Reference Range Interpretation Comments Basophils (test code = 0.4 See_Comment [Aut omated message] The Basophils) system which ge nerated this result tra nsmitted reference range : <=1.0. The reference r gilbert was not used to int erpret this result as normal/abnormal . [facility] HospitalQvwkruiYUQYIHFNUE2007-40-17 12:57:41 Test Item Value Reference Range Interpretation Comments Lymphocytes # (test code = Lymphocytes 2.0 1.0-5.5 #) [facility] HospitalXciepeiIGVZYESIUY0814-05-10 12:57:41 Test Item Value Reference Range Interpretation Comments Eosinophils # (test code 0.3 See_Comment [A utomated message] The = Eosinophils #) system whic h generated this result tra nsmitted reference range : <=0.5. The reference r gilbert was not used to int erpret this result as normal/abnormal . [facility] HospitalCjdbvsaWXFDBUHIPF8237-04-66 12:57:41 Test Item Value Reference Range Interpretation Comments Monocytes # (test code 0.7 See_Comment [Aut omated message] The = Monocytes #) system which generated this result tra nsmitted reference range : <=0.8. The reference r gilbert was not used to int erpret this result as normal/abnormal . [facility] HospitalFgpbyeeZYGLWTMGXM9395-31-28 12:57:41 Test Item Value Reference Range Interpretation Comments MPV (test code = MPV) 8.3 7.4-10.4 [facility] HospitalGieoundZTVCAYYAHX9938-66-25 12:57:41 Test Item Value Reference Range Interpretation Comments WBC (test code = WBC) 5.7 3.7-10.4 [facility] HospitalNbdkzioENYPRAKVMS8188-50-06 12:57:41 Test Item Value Reference Range Interpretation Comments RBC (test code = RBC) 4.43 4.70-6.10 [facility] HospitalYggsazsEDFHGBNUKC0623-80-99 12:57:41 Test Item Value Reference Range Interpretation Comments Hgb (test code = Hgb) 12.8 14.0-18.0 [facility] HospitalCfxkjrcGIDRUDUUST7008-36-05 12:57:41 Test Item Value Reference Range Interpretation Comments MCH (test code = MCH) 29.0 pg 27.0-31.0 [facility] HospitalXhfknupDMIMRMTDGG3769-35-12 12:57:41 Test Item Value Reference Range Interpretation Comments MCV (test code = MCV) 84.0 80.0-94.0 [facility] HospitalQljgqezBDCMJWURZE9495-06-75 12:57:41 Test Item Value Reference Range Interpretation Comments Hct (test code = Hct) 37.2 42.0-54.0 [facility] HospitalLpnueouKNCUHFPFWL6118-06-23 12:57:41 Test Item Value Reference Range Interpretation Comments RDW (test code = RDW) 13.5 11.5-14.5 [facility] HospitalMoxvrxxSTNTQTQUJE2214-67-04 12:57:41 Test Item Value Reference Range Interpretation Comments MCHC (test code = MCHC) 34.5 32.0-36.0 [facility] HospitalWrvsfqoNQBGFVXOKB4229-64-83 12:57:41 Test Item Value Reference Range Interpretation Comments Platelet (test code = Platelet) 216 133-450 [facility]2017-12-20 12:57:41 Test Item Value Reference Range Interpretation Comments Amylase Lvl (test code = Amylase Lvl) 37 25-115 [facility] HospitalNadrhscQQRTZWQIBI5786-14-61 12:57:41 Test Item Value Reference Range Interpretation Comments Segs (test code = Segs) 47.1 45.0-75.0 [facility] HospitalOjmowssMKJFAXJAGT9304-98-95 12:57:41 Test Item Value Reference Range Interpretation Comments Segs-Bands # (test code = Segs-Bands #) 2.7 1.5-8.1 [facility] HospitalPcbwfcbKIVHIQBRSA8198-91-23 12:57:41 Test Item Value Reference Range Interpretation Comments Lymphocytes (test code = Lymphocytes) 34.9 20.0-40.0 [facility] HospitalJujoexyJTYQJSYUXO0464-70-98 12:57:41 Test Item Value Reference Range Interpretation Comments Eosinophils (test code = 4.6 See_Comment [A utomated message] The Eosinophils) system which ge nerated this result tra nsmitted reference range : <=4.0. The reference r gilbert was not used to int erpret this result as normal/abnormal . [facility] HospitalWbabqvaWOXRJHSIRS6103-23-62 12:57:41 Test Item Value Reference Range Interpretation Comments Monocytes (test code = Monocytes) 13.0 2.0-12.0 [facility] HospitalCtrznzxLRBGXZXZAZ8955-26-57 12:57:41 Test Item Value Reference Range Interpretation Comments Basophils (test code = 0.4 See_Comment [Aut omated message] The Basophils) system which ge nerated this result tra nsmitted reference range : <=1.0. The reference r gilbert was not used to int erpret this result as normal/abnormal . [facility] HospitalUbondrxLGTRQKVFGJ3297-53-80 12:57:41 Test Item Value Reference Range Interpretation Comments Lymphocytes # (test code = Lymphocytes 2.0 1.0-5.5 #) [facility] HospitalMugjstyFRWYCGFDNI7294-66-75 12:57:41 Test Item Value Reference Range Interpretation Comments Eosinophils # (test code 0.3 See_Comment [A utomated message] The = Eosinophils #) system whic h generated this result tra nsmitted reference range : <=0.5. The reference r gilbert was not used to int erpret this result as normal/abnormal . [facility] HospitalTkiabvrIAOYNTRZCS1999-26-09 12:57:41 Test Item Value Reference Range Interpretation Comments Monocytes # (test code 0.7 See_Comment [Aut omated message] The = Monocytes #) system which generated this result tra nsmitted reference range : <=0.8. The reference r gilbert was not used to int erpret this result as normal/abnormal . [facility] HospitalWuqqpzkNSNGLFJYYM4883-81-13 12:57:41 Test Item Value Reference Range Interpretation Comments MPV (test code = MPV) 8.3 7.4-10.4 [facility] HospitalTbwumvmNUIKYJNEHS3133-42-09 12:57:41 Test Item Value Reference Range Interpretation Comments WBC (test code = WBC) 5.7 3.7-10.4 [facility] HospitalJhdgawfPQDWABTXPD1003-03-87 12:57:41 Test Item Value Reference Range Interpretation Comments RBC (test code = RBC) 4.43 4.70-6.10 [facility] HospitalNzrjnyxNOTMBWSOUB5782-25-06 12:57:41 Test Item Value Reference Range Interpretation Comments Hgb (test code = Hgb) 12.8 14.0-18.0 [facility] HospitalVsxqzbfYYUQMNNPYX7727-66-15 12:57:41 Test Item Value Reference Range Interpretation Comments MCH (test code = MCH) 29.0 pg 27.0-31.0 [facility] HospitalOrqnqnkABTBWEQRXJ9577-57-61 12:57:41 Test Item Value Reference Range Interpretation Comments MCV (test code = MCV) 84.0 80.0-94.0 [facility] HospitalHfhzbpgXDOSSIPARW5219-85-95 12:57:41 Test Item Value Reference Range Interpretation Comments Hct (test code = Hct) 37.2 42.0-54.0 [facility] HospitalDlpibdqIPQHNDIPQJ7204-31-25 12:57:41 Test Item Value Reference Range Interpretation Comments RDW (test code = RDW) 13.5 11.5-14.5 [facility] HospitalMuduschUWOOKHZKWU6864-14-74 12:57:41 Test Item Value Reference Range Interpretation Comments MCHC (test code = MCHC) 34.5 32.0-36.0 [facility] HospitalIwopngsPDSXFJRLQH7204-33-75 12:57:41 Test Item Value Reference Range Interpretation Comments Platelet (test code = Platelet) 216 133-450 [facility]2017-12-20 12:57:00 Test Item Value Reference Range Interpretation Comments eGFR (test code = eGFR) 83 [facility]2017-12-20 12:57:00 Test Item Value Reference Range Interpretation Comments A/G Ratio (test code = A/G Ratio) 1.0 0.7-1.6 [facility]2017-12-20 12:57:00 Test Item Value Reference Range Interpretation Comments Globulin (test code = Globulin) 3.3 2.7-4.2 [facility]2017-12-20 12:57:00 Test Item Value Reference Range Interpretation Comments Glucose Lvl (test code = Glucose Lvl) 91 70-99 [facility]2017-12-20 12:57:00 Test Item Value Reference Range Interpretation Comments Creatinine Lvl (test code = Creatinine 1.13 0.50-1.40 Lvl) [facility]2017-12-20 12:57:00 Test Item Value Reference Range Interpretation Comments BUN (test code = BUN) 16 7-22 [facility]2017-12-20 12:57:00 Test Item Value Reference Range Interpretation Comments Potassium Lvl (test code = Potassium 3.9 3.5-5.1 Lvl) [facility]2017-12-20 12:57:00 Test Item Value Reference Range Interpretation Comments Sodium Lvl (test code = Sodium Lvl) 141 135-145 [facility]2017-12-20 12:57:00 Test Item Value Reference Range Interpretation Comments AGAP (test code = AGAP) 11.9 10.0-20.0 [facility]2017-12-20 12:57:00 Test Item Value Reference Range Interpretation Comments B/C Ratio (test code = B/C Ratio) 14 6-25 [facility]2017-12-20 12:57:00 Test Item Value Reference Range Interpretation Comments AST (test code = AST) 28 See_Comment [Auto mated message] The system which ge nerated this result transmit jordana reference range : <=37. The reference range was not used to interpr et this result as les l/abnormal. [facility]2017-12-20 12:57:00 Test Item Value Reference Range Interpretation Comments ALT (test code = ALT) 62 See_Comment [Auto mated message] The system which ge nerated this result transmit jordana reference range : <=65. The reference range was not used to interpr et this result as les l/abnormal. [facility]2017-12-20 12:57:00 Test Item Value Reference Range Interpretation Comments Bili Total (test code = Bili Total) 1.3 0.2-1.3 [facility]2017-12-20 12:57:00 Test Item Value Reference Range Interpretation Comments Alk Phos (test code = Alk Phos) 64 39-136 [facility]2017-12-20 12:57:00 Test Item Value Reference Range Interpretation Comments CO2 (test code = CO2) 29 24-32 [facility]2017-12-20 12:57:00 Test Item Value Reference Range Interpretation Comments Chloride Lvl (test code = Chloride Lvl) 104 95-109 [facility]2017-12-20 12:57:00 Test Item Value Reference Range Interpretation Comments Total Protein (test code = Total 6.6 6.4-8.4 Protein) [facility]2017-12-20 12:57:00 Test Item Value Reference Range Interpretation Comments Calcium Lvl (test code = Calcium Lvl) 8.1 8.5-10.5 [facility]2017-12-20 12:57:00 Test Item Value Reference Range Interpretation Comments Albumin Lvl (test code = Albumin Lvl) 3.3 3.5-5.0 [facility]2017-12-20 12:57:00 Test Item Value Reference Range Interpretation Comments eGFR (test code = eGFR) 83 [place] 983367-12-20 12:57:00 Test Item Value Reference Range Interpretation Comments A/G Ratio (test code = A/G Ratio) 1.0 0.7-1.6 [place] 983367-12-20 12:57:00 Test Item Value Reference Range Interpretation Comments Globulin (test code = Globulin) 3.3 2.7-4.2 [place] 983367-12-20 12:57:00 Test Item Value Reference Range Interpretation Comments Glucose Lvl (test code = Glucose Lvl) 91 70-99 [facility]2017-12-20 12:57:00 Test Item Value Reference Range Interpretation Comments Creatinine Lvl (test code = Creatinine 1.13 0.50-1.40 Lvl) [place] 983367-12-20 12:57:00 Test Item Value Reference Range Interpretation Comments BUN (test code = BUN) 16 7-22 [place] 983367-12-20 12:57:00 Test Item Value Reference Range Interpretation Comments Potassium Lvl (test code = Potassium 3.9 3.5-5.1 Lvl) [place] 983367-12-20 12:57:00 Test Item Value Reference Range Interpretation Comments Sodium Lvl (test code = Sodium Lvl) 141 135-145 [facility]2017-12-20 12:57:00 Test Item Value Reference Range Interpretation Comments AGAP (test code = AGAP) 11.9 10.0-20.0 [facility]2017-12-20 12:57:00 Test Item Value Reference Range Interpretation Comments B/C Ratio (test code = B/C Ratio) 14 6-25 [place] 983367-12-20 12:57:00 Test Item Value Reference Range Interpretation Comments AST (test code = AST) 28 See_Comment [Auto mated message] The system which ge nerated this result transmit jordana reference range : <=37. The reference range was not used to interpr et this result as les l/abnormal. [place] 983367-12-20 12:57:00 Test Item Value Reference Range Interpretation Comments ALT (test code = ALT) 62 See_Comment [Auto mated message] The system which ge nerated this result transmit jordana reference range : <=65. The reference range was not used to interpr et this result as les l/abnormal. [facility]2017-12-20 12:57:00 Test Item Value Reference Range Interpretation Comments Bili Total (test code = Bili Total) 1.3 0.2-1.3 [facility]2017-12-20 12:57:00 Test Item Value Reference Range Interpretation Comments Alk Phos (test code = Alk Phos) 64 39-136 [facility]2017-12-20 12:57:00 Test Item Value Reference Range Interpretation Comments CO2 (test code = CO2) 29 24-32 [facility]2017-12-20 12:57:00 Test Item Value Reference Range Interpretation Comments Chloride Lvl (test code = Chloride Lvl) 104 95-109 [facility]2017-12-20 12:57:00 Test Item Value Reference Range Interpretation Comments Total Protein (test code = Total 6.6 6.4-8.4 Protein) [facility]2017-12-20 12:57:00 Test Item Value Reference Range Interpretation Comments Calcium Lvl (test code = Calcium Lvl) 8.1 8.5-10.5 [facility]2017-12-20 12:57:00 Test Item Value Reference Range Interpretation Comments Albumin Lvl (test code = Albumin Lvl) 3.3 3.5-5.0 [facility]2017-12-20 12:57:00 Test Item Value Reference Range Interpretation Comments eGFR (test code = eGFR) 83 [facility]2017-12-20 12:57:00 Test Item Value Reference Range Interpretation Comments A/G Ratio (test code = A/G Ratio) 1.0 0.7-1.6 [facility]2017-12-20 12:57:00 Test Item Value Reference Range Interpretation Comments Globulin (test code = Globulin) 3.3 2.7-4.2 [facility]2017-12-20 12:57:00 Test Item Value Reference Range Interpretation Comments Glucose Lvl (test code = Glucose Lvl) 91 70-99 [facility]2017-12-20 12:57:00 Test Item Value Reference Range Interpretation Comments Creatinine Lvl (test code = Creatinine 1.13 0.50-1.40 Lvl) [facility]2017-12-20 12:57:00 Test Item Value Reference Range Interpretation Comments BUN (test code = BUN) 16 7- [facility]2017-12-20 12:57:00 Test Item Value Reference Range Interpretation Comments Potassium Lvl (test code = Potassium 3.9 3.5-5.1 Lvl) [facility]2017-12-20 12:57:00 Test Item Value Reference Range Interpretation Comments Sodium Lvl (test code = Sodium Lvl) 141 135-145 [facility]2017-12-20 12:57:00 Test Item Value Reference Range Interpretation Comments AGAP (test code = AGAP) 11.9 10.0-20.0 [facility]2017-12-20 12:57:00 Test Item Value Reference Range Interpretation Comments B/C Ratio (test code = B/C Ratio) 14 6- [facility]2017-12-20 12:57:00 Test Item Value Reference Range Interpretation Comments AST (test code = AST) 28 See_Comment [Auto mated message] The system which ge nerated this result transmit jordana reference range : <=37. The reference range was not used to interpr et this result as les l/abnormal. [facility]2017-12-20 12:57:00 Test Item Value Reference Range Interpretation Comments ALT (test code = ALT) 62 See_Comment [Auto mated message] The system which ge nerated this result transmit jordana reference range : <=65. The reference range was not used to interpr et this result as les l/abnormal. [facility]2017-12-20 12:57:00 Test Item Value Reference Range Interpretation Comments Bili Total (test code = Bili Total) 1.3 0.2-1.3 [facility]2017-12-20 12:57:00 Test Item Value Reference Range Interpretation Comments Alk Phos (test code = Alk Phos) 64 39-136 [facility]2017-12-20 12:57:00 Test Item Value Reference Range Interpretation Comments CO2 (test code = CO2) 29 24-32 [facility]2017-12-20 12:57:00 Test Item Value Reference Range Interpretation Comments Chloride Lvl (test code = Chloride Lvl) 104 95-109 [place] 983367-12-20 12:57:00 Test Item Value Reference Range Interpretation Comments Total Protein (test code = Total 6.6 6.4-8.4 Protein) [facility]2017-12-20 12:57:00 Test Item Value Reference Range Interpretation Comments Calcium Lvl (test code = Calcium Lvl) 8.1 8.5-10.5 [facility]2017-12-20 12:57:00 Test Item Value Reference Range Interpretation Comments Albumin Lvl (test code = Albumin Lvl) 3.3 3.5-5.0 [facility]2017-12-20 12:57:00 Test Item Value Reference Range Interpretation Comments eGFR (test code = eGFR) 83 [facility]2017-12-20 12:57:00 Test Item Value Reference Range Interpretation Comments A/G Ratio (test code = A/G Ratio) 1.0 0.7-1.6 [facility]2017-12-20 12:57:00 Test Item Value Reference Range Interpretation Comments Globulin (test code = Globulin) 3.3 2.7-4.2 [facility]2017-12-20 12:57:00 Test Item Value Reference Range Interpretation Comments Glucose Lvl (test code = Glucose Lvl) 91 70-99 [facility]2017-12-20 12:57:00 Test Item Value Reference Range Interpretation Comments Creatinine Lvl (test code = Creatinine 1.13 0.50-1.40 Lvl) [facility]2017-12-20 12:57:00 Test Item Value Reference Range Interpretation Comments BUN (test code = BUN) 16 7-22 [facility]2017-12-20 12:57:00 Test Item Value Reference Range Interpretation Comments Potassium Lvl (test code = Potassium 3.9 3.5-5.1 Lvl) [facility]2017-12-20 12:57:00 Test Item Value Reference Range Interpretation Comments Sodium Lvl (test code = Sodium Lvl) 141 135-145 [facility]2017-12-20 12:57:00 Test Item Value Reference Range Interpretation Comments AGAP (test code = AGAP) 11.9 10.0-20.0 [facility]2017-12-20 12:57:00 Test Item Value Reference Range Interpretation Comments B/C Ratio (test code = B/C Ratio) 14 6-25 [facility]2017-12-20 12:57:00 Test Item Value Reference Range Interpretation Comments AST (test code = AST) 28 See_Comment [Auto mated message] The system which ge nerated this result transmit jordana reference range : <=37. The reference range was not used to interpr et this result as les l/abnormal. [facility]2017-12-20 12:57:00 Test Item Value Reference Range Interpretation Comments ALT (test code = ALT) 62 See_Comment [Auto mated message] The system which ge nerated this result transmit jordana reference range : <=65. The reference range was not used to interpr et this result as les l/abnormal. [facility]2017-12-20 12:57:00 Test Item Value Reference Range Interpretation Comments Bili Total (test code = Bili Total) 1.3 0.2-1.3 [facility]2017-12-20 12:57:00 Test Item Value Reference Range Interpretation Comments Alk Phos (test code = Alk Phos) 64 39-136 [facility]2017-12-20 12:57:00 Test Item Value Reference Range Interpretation Comments CO2 (test code = CO2) 29 24-32 [facility]2017-12-20 12:57:00 Test Item Value Reference Range Interpretation Comments Chloride Lvl (test code = Chloride Lvl) 104 95-109 [facility]2017-12-20 12:57:00 Test Item Value Reference Range Interpretation Comments Total Protein (test code = Total 6.6 6.4-8.4 Protein) [facility]2017-12-20 12:57:00 Test Item Value Reference Range Interpretation Comments Calcium Lvl (test code = Calcium Lvl) 8.1 8.5-10.5 [facility]2017-12-20 12:57:00 Test Item Value Reference Range Interpretation Comments Albumin Lvl (test code = Albumin Lvl) 3.3 3.5-5.0 [facility]FFOHU2502-31-31 17:27:00 Test Item Value Reference Range Interpretation Comments C-REACTIVE PROTEIN (test code = 14.4 C-REACTIVE PROTEIN) [place] [id number] 17:27:00 Test Item Value Reference Range Interpretation Comments Lipase Lvl (test code = Lipase Lvl) [address] [place] [address]2017-12-19 17:27:00 Test Item Value Reference Range Interpretation Comments Sed Rate (test code = 1 See_Comment [Auto mated message] The Sed Rate) system which ge nerated this result transmit jordana reference range : <=15. The reference range was not used to interpr et this result as les l/abnormal. [facility]RX[facility]MYOW6745-72-01 17:27:00 Test Item Value Reference Range Interpretation Comments C-REACTIVE PROTEIN (test code = 14.4 C-REACTIVE PROTEIN) [facility]2017-12-19 17:27:00 Test Item Value Reference Range Interpretation Comments Lipase Lvl (test code = Lipase Lvl) [address] [place] [address]-12-19 17:27:00 Test Item Value Reference Range Interpretation Comments Sed Rate (test code = 1 See_Comment [Auto mated message] The Sed Rate) system which ge nerated this result transmit jordana reference range : <=15. The reference range was not used to interpr et this result as les l/abnormal. [facility] IrvingPexjozcANZSSKIKAS3621-76-59 17:27:00 Test Item Value Reference Range Interpretation Comments C-REACTIVE PROTEIN (test code = 14.4 C-REACTIVE PROTEIN) [facility]2017-12-19 17:27:00 Test Item Value Reference Range Interpretation Comments Lipase Lvl (test code = Lipase Lvl) [address] [place] [address]2017-12-19 17:27:00 Test Item Value Reference Range Interpretation Comments Sed Rate (test code = 1 See_Comment [Auto mated message] The Sed Rate) system which ge nerated this result transmit jordana reference range : <=15. The reference range was not used to interpr et this result as lse l/abnormal. [place] [id number] 17:27:00 Test Item Value Reference Range Interpretation Comments C-REACTIVE PROTEIN (test code = 14.4 C-REACTIVE PROTEIN) [facility]2017-12-19 17:27:00 Test Item Value Reference Range Interpretation Comments Lipase Lvl (test code = Lipase Lvl) [address] [place], [place] [id number] 17:27:00 Test Item Value Reference Range Interpretation Comments Sed Rate (test code = 1 See_Comment [Auto mated message] The Sed Rate) system which ge nerated this result transmit jordana reference range : <=15. The reference range was not used to interpr et this result as les l/abnormal. [facility] Notes Date/Time Note Provider Source 2021-05-02 15:24:00-00:00 [facility] ([facility]) Discharge Summary REPORT#:[id number] REPORT STATUS: Signed DATE:05/02/21 TIME: 1523 PATIENT: LISA FLORES UNIT #: [id number] ROOM/BED: [place] [address] : 81 AGE: 41 SEX: M ATTEND: Zeke Dodd ADM AUTHOR: Camille Estevez * ALL edits or amendments must be made on the [employer]/computer document * General Information Date of admission: Observation Start Date: Date of admission: 05/01/21 Discharge date: 05/02/21 Admission diagnosis: morbid obesity, hyperlipidemia, GERD Discharge diagnosis: same Hospital course: 41 yr old male patient s/p l aparoscopic sleeve gastrectomy, seen and examined by Dr. Dodd only, reports patient doing well. Tolerat ing diet with no nausea or vomiting. Good restriction. No reflux. Pain cont rolled with medications. Ambulatory around unit. Explained to patient imp ortance of sipping slowly, at least 1 medicine cup of fluids every 15 minutes. Patient's goal to intake at least 60g protein daily and 30oz of wate r. Patient expressed understanding and agreed with plan. Pt. condition on discharge: stable Allergies: Allergies: No Known Allergies (Coded, 04/27/21) Med Rec PCP PCP: PCP: No Primary or Family Physician Med Rec Discharge meds: Start taking the following new medications: ACETAMINOPHEN/CODEINE (TYLEN OL WITH CODEINE 120-12 MG/5ML) 120 MG-12 MG/5 ML (5 ML) ELIXIR 20 MILLILITERS ORAL EVERY 4 HOURS NEEDED. as needed for acute pain Qty = 500 No Refills Objective VS/I O Last Documented: Result Date Time Pulse Ox 96 05/02 1212 B/P 107/65 05/02 1212 B/P Mean 79.2 05/02 1212 Temp 36.7 05/02 1212 Pulse 47 05/02 1212 Resp 13 05/02 1212 O2 Delivery Room air 05/02 0305 O2 Flow Rate 1 05/01 1530 24 hour I O ending at 0700: 05/02 0700 05/01 1900 Intake Total 1800.00 1000.00 Output Total 800 Balance 1000.00 1000.00 Intake, IV 1800.00 700.00 Intake, Oral 300 Output, Urine 800 Patient 127 kg Weight Weight Stated/Reported Measurement Method PATIENT WEIGHT: Weight (lb): 279 Weight (oz): 15.79 Weight (kg): 127.000 General appearance: alert, awake Head/Eyes: atraumatic, normocephalic Neck: full range of motion Cardiovascular: regular rate rhythm Respiratory: no distress GI: soft, no guarding, no rebound, no distention Extremities: moves all Musculoskeletal: full range of motion Neuro/C APPLICATION DEVELOPER: alert, oriented X 3 Considered stroke alert: no Skin: dry, intact Wound/incision: Location: abdomen Site Condition: edges approximated, incision in tact Psychiatry: normal affect, normal judgment/insig ht, normal mood Results Findings/Data: Laboratory Tests: 05/02 0309 Chemistry Sodium (134 - 147 mEq/L) 140 Potassium (3.4 - 5.0 mEq/L) 4.1 Chloride (100 - 108 mEq/L) 102 Carbon Dioxide (21 - 33 mEq/l) 27 Anion Gap (0 - 20) 16 BUN (7 - 18 mg/dL) 16 Creatinine (0.6 - 1.3 mg/dL) 1.0 Glomerular Filtr Rate (95 - 105) 82.8 L Glucose (70 - 110 mg/dL) 115 H Calcium (8.0 - 10.5 mg/dL) 8.7 Hematology WBC (4.5 - 11.0 x10 3/uL) 13.9 H RBC (4.00 - 5.60 x10 6/uL) 4.78 Hgb (12.5 - 16.9 g/dL) 13.8 Hct (37.5 - 50.7 %) 42.4 MCV (81.0 - 99.0 fL) 88.7 MCH (27.0 - 33.0 pg) 28.9 MCHC (33.0 - 37.0 g/dL) 32.5 L RDW (11.5 - 14.5 %) 12.9 Plt Count (150 - 400 x10 3/uL) 296 MPV (7.0 - 9.0 fL) 10.9 H Neut % (Auto) (56.0 - 77.0 %) 80.9 H Lymph % (Auto) (14.0 - 32.0 %) 10.6 L Terrell % (Auto) (4.8 - 9.0 %) 7.9 Eos % (Auto) (0.3 - 3.7 %) 0.1 L Baso % (Auto) (0.0 - 2.0 %) 0.1 Neut # (Auto) (2.0 - 7.6 x10 3/uL) 11.27 H Lymph # (Auto) (1.0 - 3.8 x10 3/uL) 1.48 Terrell # (Auto) (0.1 - 0.8 x10 3/uL) 1.10 H Eos # (Auto) (0.0 - 0.2 x10 3/uL) 0.01 Baso # (Auto) (0.0 - 0.2 x10 3/uL) 0.02 Abs Immat Gran (auto) (0.00 - 0.03 x10 3/uL) 0. 05 H Add Manual Diff NO Immature Gran % (0.0 - 2.0 %) 0.4 Nucleated RBC % (0 - 0 %) 0.0 Nucleated RBCs # (Man) (0.0 - 0.1 x10 3/uL) 0.0 0 Results: labs reviewed, vital signs stable Discharge Instructions PCP PCP: PCP: No Primary or Family Physician )( Discharge to: Home/Self Care Discharge Instructions Additional Discharge Routines: Attending Follow-Up, Equipment/Supplies, Wound/ Dressing Care )( Diet: Bariatric Liquid Diet )( Activity: As Tolerated, No Lifting >10lbs )( Wound/dressing care: Keep wound clean and dry , OK to shower tomorrow )( Equipment/supplies: IS us e at least 10x/hr while awake wear abdominal binder daily while awake and active Follow-up Appointments Attending Physician: Attending Physician: Zeke Dodd MD Attending physician follow up timeframe: 1 week Electronically Signed by Camille Estevez on at 1244 Electronically Signed by Zeke Dodd MD on 1 at 1052 [facility] #:[id number] END OF REPORT 2021-05-01 11:28:00-00:00 [id number] [address] PATIENT NAME: LISA FLORES ADMIT DATE: 04/20 09/10 ACCOUNT NO: [id number] ROOM NO: G.559 AGE: 41 REPORT TYPE: OPERATIVE REPORT SEX: M ADMITTING PHYSICIAN:Zeke Dodd MD ATTENDING PHYSICIAN:Zeke Dodd MD OPERATION DATE: 05/01/2021 PREOPERATIVE DIAGNOSES: 1. Hyperlipidemia. 2. Gastroesophageal reflux disease. 3. Morbid obesity, body mass index greater than 40. 4. Hiatal hernia. POSTOPERATIVE DIAGNOSES: 1. Hyperlipidemia. 2. Gastroesophageal reflux disease. 3. Morbid obesity, body mass index greater than 40. 4. Hiatal hernia. PROCEDURES PERFORMED: 1. Laparoscopic hiatal hernia repair. 2. Laparoscopic sleeve gastrectomy. SURGEON: Zeke Dodd MD ASSISTANTS: 1. KOSTA Leos 2. ERICKA Arteaga ANESTHESIA: MAC. INTRAVENOUS FLUIDS: Crystalloid. BLOOD LOSS: Less than 30 mL. URINE OUTPUT: Not measured. BRIEF HISTORY: Pleasant 41-y ear-old male who presented to bariatric program and completed the program. He was diagnosed with a p reop hiatal hernia on EGD. I recommended a laparoscopic repair of the hernia at the same time at a sleeve gastrectomy. Risks and benefits of procedure wer e discussed. Informed consent was obtained. The patient was preoped for surger y. PROCEDURE IN DETAIL: The pat ient was transferred to the operating room and laid in the supine position. The patient was sedated and intubated. Perioperative antibiotic, body warmer, and SCD were used. The patient was then prepped and draped in sterile surgical f ashion. I entered the abdomen using a 5-mm Optiview trocar technique. Pneumoperitoneum was establish ed. I then placed three more PATIENT NAME: LISA FLOERS [id number] 5-mm trocars, a 12-mm trocar and a liver retract or. I identified a hiatal hernia first. Picture was taken for photographic documentation. I started out by repairing the hernia firs t. I opened up the gastrohepatic ligament using the LigaSure. I then dissected right on top of the d iaphragmatic rosalie and started dividing the hernia sac. I divided hernia sac ci rcumferentially using the LigaSure. After that, I then mobilized the esoph sudhir to get at least 2 cm intraabdominal esophagus. On ce that was done, I then elevated the esophagus and approximated the left and the right rosalie over a 42-Jamaican bougie. A total of 2 interrupted 0 Ethibond was used to approximate t he rosalie to fix the hiatal hernia. When the hiatal hernia was fixed, I then now proceeded to sleeve gastrectomy. I started out by measuring 6 cm from the pylorus . I then dissected out the greater omentum and divided off the grea ter curvature of the stomach. LigaSure was used for this. I also divided the short nba priya. When that was done, I advanced the 42-Jamaican bougie into the antrum. A fter it was advanced to the antrum, I then proceeded to dividing the stomach along the 42-Jamaican bougie. A total of 2 green, 2 gold, an d 2 blue all with staple line reinforcement material were used to divide the stomach along the 42-Alejandro nch bougie. When that was accomplished, I then removed the 42-Jamaican bougie and performed an EGD. No leak was identified. No angulation, kinking o r twisting. Hernia repair was noticed. After that, I then suctioned out all fluid and blood clot. No bleeding was seen. Resected stomach was removed through the 1 2-mm belly button trocar. Fascia was closed with interrupted 0 Vicryl. Pne umoperitoneum was desufflated and trocars were removed. Skin was closed with 4 -0 Monocryl. Dermabond was applied. The patient tolerated the procedure wel l and was extubated and transferred to the recovery room for further car e. Dictated By: Zeke Dodd MD WT: OP:SANTO/MALDONADO/YURIY Conf#: [id number]/DID#: [id number] Authenticated by Zeke Dodd MD On 05/02/2021 05: 23:00 PM Electronically Signed by Zeke Dodd MD on at 0523 PATIENT NAME: LISA FLORES [id number] 2021-04-27 11:13:00-00:00 [id number] [place] [address] PATIENT NAME: LISA FLORES ADMIT DATE: ACCOUNT NO: [id number] ROOM NO: AGE: 41 REPORT TYPE: eELECTROCARDIOGRAM REPORT SEX: M ADMITTING PHYSICIAN:Zeke Dodd MD ATTENDING PHYSICIAN:Zeke Dodd MD Order: [id number] Test Reason : PREOP Test Date/Time Stamp: FriApr 27 2021 11:13:58 Blood Pressure : / mmHG Vent. Rate : 064 BPM Atrial Rate : 064 BPM P-R Int : 144 ms QRS Dur : 082 ms QT Int : 398 ms P-R-T Axes : 007 034 023 degree s QTc Int : 410 ms Normal sinus rhythm Normal ECG No previous ECGs available Confirmed by KALYAN ANDREW MD ([id number]) on 04/27/20 11:42:02 AM Referred By: Zeke Dodd Confirmed by:KALYAN ANDREW MD at 1142 PATIENT NAME: LISA FLORES ACCOUNT #: [id number] 2018-04-23 15:23:00-00:00 Patient Name: LISA FLORES [facility] : 1980; Age: 38 years y/o Male MR: [id number] Physician: Roger Walls MD ABDOMINAL ULTRASOUND History: Right upper quadrant abdominal pain.; Technique: The abdomen was evaluated with dynami c ultrasound scanning. Prior studies reviewed: Comp uted tomography scan of the abdomen and pelvis of 02/23/2018. FINDINGS: * Gallbladder: Within normal limits. No gallstones are seen. There is no abnormal distention. There is no wall thickening or fluid around the gallbladder. * Common bile duct: Within normal limits, 5 mm i n diameter. * Intrahepatic ducts: Not dilated. * Liver: Wenden to be within t he upper limits of normal in size. The liver is normal in echogenicity. No focal lesions are seen. * Pancreas: Limited evaluati on of the pancreas due to overlying bowel gas. The visualized portions were unremarkable. The pancreas is normal in appearance on the computed tomography scan of 02/23/2018.. The visualized portions were unremarkable. * Spleen: Normal in size. The spleen measures 12 .6 cm. In length * Kidneys: Normal in size an d echogenicity without hydronephrosis. No focal lesions are seen. The right kidney measures 12.3 x 4.8 x 4.2 cm. The left kidney measures 12.2 x 6.2 x 5.0 cm. * Aorta: Normal in diameter. There is no evidence of an abdominal aortic aneurysm. * Inferior vena cava: Seen in segments and appea r to be patent. ( ) IMPRESSION: ( ) 1. Essentially negative abdo gerardo ultrasound. There is no evidence of cholelithiasis or biliary ductal dilatation. SL: [id number] 2018-02-22 22:59:00-00:00 Clinical Indication: - abd pain - hx S GERARDO; [employer] Comparison: None Technique: Multi-detector CT imaging of the abdomen and pelvis is performed with contrast. Coronal and sagittal reconstructions were obtained. IV CONTRAST: 100 mL of Omnipaque GI CONTRAST: No oral contrast was administered w hich can limit assessment. CT Radiation Dose: DLP 1284.14 mGy-cm FINDINGS: CT ABDOMEN WITH CONTRAST: Included chest: Unremarkable. ABDOMINAL SOLID ORGANS: The contrast enhanced images of the liver, spleen, pancreas, gallbladder, adrenals and kidneys are normal. Simple cyst in the left kidney. Noted renal hydronephrosis seen. STOMACH AND BOWEL: The stomach is unremarkable. The small bowel are unremarkable. The appendix is normal . Redundant sigmoid colon is n oted. There is abnormal wall thickening with significant inflammation and nondiscrete fluid involving the sigmoid colon. There is small extraluminal air adjacent to the infla mmation of the sigmoid colon . Finding probably related to perforated diverticulitis. No organized fluid collection seen to suggest abscess. . PERITONEUM AND RETROPERITONEUM: There is no abdominal lympha denopathy. There is no pneumoperitoneum or abdominal ascites. There are no retroperitoneal abnormalities. VASCULAR STRUCTURES: The abdominal aorta is unremarkable without aneu rysm. The inferior vena cava is unremarkable. The mesenteric vessels and portal veinous struct ures are grossly patent. CT PELVIS WITH CONTRAST: PERITONEAL AND EXTRAPERITONEAL REGIONS: There is no pelvic free flui d or lymphadenopathy. Small fat-containing inguinal hernias are noted bilaterally.. BLADDER / : The bladder is unremarkable. 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 No spondylolisthesis is seen.. IMPRESSION: 1. Finding suggestive of per forated sigmoid diverticulitis. No organized fluid collection to suggest abscess. SL: [[id number]] 2017-07-10 08:10:00-00:00 Small bowel series DX [employer] COMPARISON: KUB 07/09/2017 CLINICAL HISTORY: Abdominal pain, acute - Partial SBO outside CT; please use water soluble per NG tube; TECHNIQUE: Serial overhead i mages of the abdomen were performed at 15 to 30 minute intervals following administration of Omnipaque via the patient's NG tube. FINDINGS: Purchasing Coordinator study reveals a nonobs tructive bowel gas pattern. Moderate amount of stool is present in the colon. No pathologic calcifications noted. FINDINGS: No significant del ay in passage of barium from the stomach into the small bowel and subsequently into the colon. There is mild dilation of a few of the proximal jejunal loops. No obvious trans ition point. The remainder o f the jejunum and ileum demonstrate normal morphology. No obstructing masses, strictures or other significant mucosal abnormality is noted. Contrast reaches the colon on the 2 hour 30 minute image. IMPRESSION: No evidence for small bowel obstruction. Mild nonspecific dilation of proximal jejunal loops without an obvious transition point. SL: [id number] 2017-07-09 14:55:45-00:00 Patient Name: LISA FLORES [employer] : 1980; Age: 37 years y/o Male MR: [id number] Study: Abdomen AP DX 07/09/2017 1:34 PM [employer] MACHINE Ordering Physician: MD Damian Toure MD Clinical Indication: - Abdominal distention; Comparison: None 1 view abdomen IMPRESSION: Normal bowel gas pattern. Nasogastric tube termi nates in the stomach. SL: [id number] 2017-07-09 04:46:21-00:00 Abdomen 1 v for Placement DX [employer] History: - NG tube placement Comparison:None. Findings: The NG tube enters the stoma ch and coils within the proximal stomach and then continues where it terminates over the mid body of the stomach. The visualized bowel gas pattern is nonspecific. Impression: The NG tube terminates within the stomach. SL: MINA 2017-07-08 21:20:00-00:00 Study: Frontal chest x-ray [employer] History: Feeding tube placement Comments: The trachea is midline. The cardiomediastinal si lhouette is normal in size. No pneumonia. No pleural effusions or pneumothorax. Feeding tu be tip is in the stomach Impression: No acute cardiopulmonary disease. Feeding tube tip is in the stomach 2017-07-08 14:15:00-00:00 Clinical Indication: - check placement of ngt. [employer] Comparison: None. Technique: 2 views of the lower chest and upper abdomen were obtained. FINDINGS: A feeding tube is visualized which is coiled in the distal esophagus. Nonspecific bowel gas pattern is noted. IMPRESSION: Feeding tube coiled in the distal esophagus. SL: JOANA 2017-07-08 11:19:00-00:00 Study: Abdomen, 3 views [employer] Clinical Indication: - SBO Comparison: None FINDINGS: Multiple views of the abdomen show moderately dilated air-filled loops of small bowel in the upper abdomen. No intraperitoneal free air is seen. No suspicious abdominal calcifications are noted. Osseous structures are unremarkable. IMPRESSION: Moderately dilat ed air-filled loops of small bowel in the upper abdomen, suspicious for a partial small bowel obstruction. SL: [id number]"
[2023-02-14 23:15] LABS: Absolute Lymphocytes (CBC) 2.6 K/uL (0.7-4.9); Lymphocytes % 31.7 % (15.3-44.8); MCV 87.1 fL (80-100); MPV 8.1 fL (7.6-11.3); RBC Red Blood Cell Count 4.93 M/uL (4.33-5.43)
[2023-02-14] MEDS ORDERED: MORPHINE 4 MG/ML SYR ONE (23:21)
[2023-02-14] MEDS ORDERED: ONDANSETRON 4 MG/2 ML VIAL ONE (23:21)
[2023-02-14] MEDS ORDERED: NA CHLORIDE 0.9% 1,000 ML ONE (23:21)
[2023-02-14 23:32] LABS: Bilirubin Total 1.1 mg/dL (0.2-1.0); Potassium 3.6 mEq/L (3.5-5.1); Protein, Total 7.6 g/dL (6.4-8.2)
[2023-02-15 01:36] LABS: Specific Gravity 1.029 (1.005-1.030); Urine Bacteria None Seen /HPF (<20); Urine Bilirubin NEGATIVE (Negative); Urine Blood Negative (Negative); Urine Clarity Clear (Clear); Urine Color Light-Yellow (Yellow); Urine Glucose NEGATIVE (Negative); Urine Protein NEGATIVE (Negative); Urine RBC <5 /HPF (None Seen); Urine Urobilinogen 1+ (Normal); Urine pH 7.5 (5.0-7.0)
--- NOTE | 2023-02-15 01:43 | ER ---
Nurse's Notes [facility] Name: Rafa Summers Age: 42 yrs Sex: Male : 1980 Arrival Date: 02/14/2023 Time: 22:38 Bed 7 Private MD: Diagnosis: Abdominal pain, unspecified Presentation: 02/14 23:19 Chief complaint: EMS states: Pt reports sudden onset LLQ pain. I have had issues in the jb4 past but this is different and I have a weird taste in my mouth. Coronavirus screen: At this time, the client does not indicate any symptoms associated with coronavirus-19. Ebola Screen: No symptoms or risks identified at this time. Initial Sepsis Screen: Does the patient meet any 2 criteria? No. Patient's initial sepsis screen is negative. Does the patient have a suspected source of infection? Yes: Acute abdominal pain. Risk Assessment: Do you want to hurt yourself or someone else? Patient reports no desire to harm self or others. Onset of symptoms was February 14, 2023. Transition of care: patient was not received from another setting of care. 23:19 Method Of Arrival: EMS: BASF jb4 23:19 Acuity: STACEY 3 jb4 Triage Assessment: 23:21 General: Appears in no apparent distress. uncomfortable, Behavior is cooperative, jb4 agitated. Pain: Complains of pain in left lower quadrant Pain does not radiate. Pain currently is 10 out of 10 on a pain scale. EENT: No signs and/or symptoms were reported regarding the EENT system. Neuro: Level of Consciousness is awake, alert, obeys commands, Oriented to person, place, time, situation. Cardiovascular: Patient's skin is warm and dry. Respiratory: Airway is patent Respiratory effort is even, unlabored, Respiratory pattern is regular, symmetrical. GI: Abdomen is flat, non-distended, Reports nausea. : No signs and/or symptoms were reported regarding the genitourinary system. Derm: Skin is intact, Skin is pink, warm \T\ dry. Musculoskeletal: No signs and/or symptoms reported regarding the musculoskeletal system. Historical: - Allergies: 23:21 No Known Allergies; jb4 - Home Meds: 23:21 None [Active]; jb4 - PMHx: 23:21 Distended bowl; jb4 - Immunization history:: Adult Immunizations up to date. - Social history:: Smoking status: Patient denies any tobacco usage or history of. - Family history:: not pertinent. Screenin:23 [facility] ED Fall Risk Assessment (Adult) History of falling in the last 3 months, jb4 including since admission No falls in past 3 months (0 pts) Confusion or Disorientation No (0 pts) Score/Fall Risk Level 0 - 2 = Low Risk Oriented to surroundings. Abuse screen: Denies threats or abuse. Nutritional screening: No deficits noted. Tuberculosis screening: No symptoms or risk factors identified. Assessment: 23:23 Reassessment: SEE TRIAGE NOTE. jb4 02/15 00:30 Reassessment: Patient appears in no apparent distress at this time. Patient and/or jb4 family updated on plan of care and expected duration. Pain level reassessed. Patient is alert, oriented x 3, equal unlabored respirations, skin warm/dry/pink. 01:28 Reassessment: Patient appears in no apparent distress at this time. Patient and/or jb4 family updated on plan of care and expected duration. Pain level reassessed. Patient is alert, oriented x 3, equal unlabored respirations, skin warm/dry/pink. Vital Signs: 02/14 23:19 BP 141 / 90; Pulse 50; Resp 20; Temp 97.8(O); Pulse Ox 100% on R/A; Weight 102 kg (M); jb4 Pain 10/10; 02/15 00:15 BP 116 / 88; Pulse 57; Resp 16; Pulse Ox 98% on R/A; jb4 01:29 BP 113 / 69; Pulse 48; Resp 16; Pulse Ox 98% on R/A; jb4 02:05 BP 118 / 75; Pulse 52; Resp 16; Pulse Ox 98% on R/A; jb4 02/14 23:19 Pain Scale: Adult jb4 ED Course: 02/14 22:53 Patient arrived in ED. vc1 22:53 Tashi Yung MD is Attending Physician. rt 23:00 Initial lab(s) drawn, by me, sent to lab. Inserted saline lock: 20 gauge in right jb4 antecubital area, using aseptic technique. Blood collected. 23:01 Radiology exam delayed due to lab results not completed at this time. (BUN/Creatinine) eh4 IV insertion attempt and/or patient not having appropriate IV at this time. 23:02 Rafa Rodríguez, RN is Primary Nurse. jb4 23:21 Triage completed. jb4 23:22 Arm band placed on right wrist. jb4 23:23 Patient has correct armband on for positive identification. Bed in low position. Call jb4 light in reach. Side rails up X 1. Client placed on continuous cardiac and pulse oximetry monitoring. NIBP monitoring applied. 02/15 00:14 CT Abd/Pelvis - IV Contrast Only In Process Unspecified. EDMS 02:05 No provider procedures requiring assistance completed. IV discontinued, intact, jb4 bleeding controlled, No redness/swelling at site. Pressure dressing applied. Administered Medications: 02/14 23:23 Drug: NS 0.9% IV 1000 ml Route: IV; Rate: 1 bolus; Site: right antecubital; jb4 23:24 Drug: Ondansetron IVP 4 mg Route: IVP; Site: right antecubital; jb4 23:24 Drug: morphine IVP or IV 4 mg Route: IVP; Infused Over: 4 mins; Site: right antecubital;jb4 Outcome: 02/15 01:43 Discharge ordered by MD. rt 02:05 Discharged to home ambulatory, with family. jb4 02:05 Condition: stable 02:05 Discharge instructions given to patient, Instructed on discharge instructions, follow up and referral plans. Demonstrated understanding of instructions, follow-up care. 02:06 Patient left the ED. jb4 Signatures: Dispatcher [employer] EDMS Rafa Rodríguez RN RN jb4 Chitra Patel RN RN 1 Ronaldo Marley [facility] Tashi Yung MD MD rt Corrections: (The following items were deleted from the chart) 02/14 23:22 23:19 BP 141 / 90; Pulse 141bpm; Resp 20bpm; Pulse Ox 100% RA; Temp 97.8F Oral; 102 kg jb4 Measured; Pain 10/10, Adult; jb4
--- NOTE | 2023-02-15 01:43 | EDPHYS ---
Physician Documentation [facility] Name: Rafa Summers Age: 42 yrs Sex: Male : 1980 Arrival Date: 02/14/2023 Time: 22:38 Bed 7 Private MD: ED Physician Tashi Yung HPI: 02/15 02:11 This 42 yrs old Male presents to ER via EMS with complaints of Abdominal pain. 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 He has had nausea without vomiting. Denies other acute complaints at this time. Symptoms are severe in severity, nonradiating, no other aggravating alleviating factors. Historical: - Allergies: 02/14 23:21 No Known Allergies; jb4 - Home Meds: 23:21 None [Active]; jb4 - PMHx: 23:21 Distended bowl; jb4 - Immunization history:: Adult Immunizations up to date. - Social history:: Smoking status: Patient denies any tobacco usage or history of. - Family history:: not pertinent. ROS: 02/15 02:11 Constitutional: Negative for fever, chills, and weight loss, Cardiovascular: Negative rt for chest pain, palpitations, and edema, Respiratory: Negative for shortness of breath, cough, wheezing, and pleuritic chest pain, MS/Extremity: Negative for injury and deformity, Skin: Negative for injury, rash, and discoloration, Neuro: Negative for headache, weakness, numbness, tingling, and seizure, Psych: Negative for depression, anxiety, suicide ideation, homicidal ideation, and hallucinations. Abdomen/GI: Positive for abdominal pain, Negative for diarrhea. Exam: 02:11 Constitutional: This is a well developed, well nourished patient who is awake, alert, rt and in no acute distress. Head/Face: Normocephalic, atraumatic. Chest/axilla: Normal chest wall appearance and motion. Nontender with no deformity. No lesions are appreciated. Cardiovascular: Regular rate and rhythm with a normal S1 and S2. No gallops, murmurs, or rubs. Normal PMI, no JVD. No pulse deficits. Respiratory: Lungs have equal breath sounds bilaterally, clear to auscultation and percussion. No rales, rhonchi or wheezes noted. No increased work of breathing, no retractions or nasal flaring. Skin: Warm, dry with normal turgor. Normal color with no rashes, no lesions, and no evidence of cellulitis. MS/ Extremity: Pulses equal, no cyanosis. Neurovascular intact. Full, normal range of motion. Neuro: Awake and alert, GCS 15, oriented to person, place, time, and situation. Cranial nerves II-XII grossly intact. Motor strength 5/5 in all extremities. Sensory grossly intact. Cerebellar exam normal. Normal gait. Psych: Awake, alert, with orientation to person, place and time. Behavior, mood, and affect are within normal limits. 02:11 Abdomen/GI: Tenderness to the left upper and left lower quadrants without rebound, guarding, distention. Vital Signs: 02/14 23:19 BP 141 / 90; Pulse 50; Resp 20; Temp 97.8(O); Pulse Ox 100% on R/A; Weight 102 kg (M); jb4 Pain 10/10; 02/15 00:15 BP 116 / 88; Pulse 57; Resp 16; Pulse Ox 98% on R/A; jb4 01:29 BP 113 / 69; Pulse 48; Resp 16; Pulse Ox 98% on R/A; jb4 02:05 BP 118 / 75; Pulse 52; Resp 16; Pulse Ox 98% on R/A; jb4 02/14 23:19 Pain Scale: Adult jb4 MDM: 02/14 22:53 Patient medically screened. rt 02/15 02:11 Differential diagnosis: Ulcer, bowel obstruction, intestinal perforation, rt diverticulitis. Data reviewed: vital signs, nurses notes. I considered the following discharge prescriptions or medication management in the emergency department Medications were administered in the Emergency Department. See MAR. Independent interpretation of the following test(s) in the Emergency Department CT Scan: My interpretation is No obstruction seen on interpretation of the CT scan images. Test considered but Not performed: Ultrasound No focal right upper quadrant tenderness, despite mild gallbladder wall thickening on CT scan, symptoms are not consistent with an acute cholecystitis, ultrasound does not indicate. Counseling: I had a detailed discussion with the patient and/or guardian regarding: the historical points, exam findings, and any diagnostic results supporting the discharge/admit diagnosis, lab results, radiology results, the need for outpatient follow up, to return to the emergency department if symptoms worsen or persist or if there are any questions or concerns that arise at home. Response to treatment: the patient's symptoms have markedly improved after treatment. 02/14 22:53 Order name: CBC with Diff; Complete Time: 23:50 rt 02/14 22:53 Order name: CMP; Complete Time: 23:50 rt 02/14 22:53 Order name: Lipase; Complete Time: 23:50 rt 02/14 23:50 Order name: UAM; Complete Time: 01:37 rt 02/14 22:53 Order name: CT Abd/Pelvis - IV Contrast Only rt 02/14 22:53 Order name: IV Saline Lock; Complete Time: 23:24 rt 02/14 22:53 Order name: Labs collected and sent; Complete Time: 23:24 rt Administered Medications: 02/14 23:23 Drug: NS 0.9% IV 1000 ml Route: IV; Rate: 1 bolus; Site: right antecubital; jb4 23:24 Drug: Ondansetron IVP 4 mg Route: IVP; Site: right antecubital; jb4 23:24 Drug: morphine IVP or IV 4 mg Route: IVP; Infused Over: 4 mins; Site: right antecubital;jb4 Disposition Summary: 02/15/23 01:43 Discharge Ordered Location: Home rt Problem: new rt Symptoms: have improved rt Condition: Stable rt Diagnosis - Abdominal pain, unspecified rt Followup: rt - With: Private Physician - When: 2 - 3 days - Reason: Discharge Instructions: - Discharge Summary Sheet rt - Abdominal Pain, Adult rt Forms: - Medication Reconciliation Form rt - Thank You Letter rt - Antibiotic Education rt - Prescription Opioid Use rt - Patient Portal Instructions rt Signatures: Dispatcher [employer] Rafa Regalado RN RN jb4 Tashi Yung MD MD rt
[2023-02-15 02:28] VITALS: TEMP 97.8
[2023-02-15 02:31] VITALS: O2SAT 98
[2023-02-15 02:35] VITALS: BP 118/75
--- NOTE | 2023-02-16 17:12 | RAD REPORT ---
EXAM DESCRIPTION: CT Abdomen and Pelvis With Intravenous Contrast CLINICAL HISTORY: LLQ PAIN TECHNIQUE: Axial computed tomography images of the abdomen and pelvis with intravenous contrast. S agittal and coronal reformatted images were created and reviewed. This CT exam was performed using one or more of the following dose reduction techniques: automated exposure control, adjustment of t he mA and/or kV according to patient size, and/or use of iterative reconstruction technique. COMPARISON: No relevant prior studies available. FINDINGS: Lung bases: Unremarkable. No mass. No consolidation. ABDOMEN: Liver: Unremarkable. No mass. Gallbladder and bile ducts: Minimal gallbladder wall thickening. No calcified gallstones. No du ctal dilation. Pancreas: Unremarkable. No mass. No ductal dilation. Spleen: Unremarkable. No splenomegaly. Adrenals: Unremarkable. No mass. Kidneys and ureters: 3 cm left renal cyst. No follow-up imaging is necessary. Normal renal evelin ical enhancement bilaterally. No calculi. No hydronephrosis. Stomach and bowel: Prior gastric sleeve. Moderate stool. Mid sigmoid anastomosis. No bowel ob struction. No appreciable mucosal thickening. PELVIS: Appendix: Normal caliber appendix. No findings to suggest acute appendicitis. Bladder: Unremarkable. No mass. Reproductive: Unremarkable as visualized. ABDOMEN and PELVIS: Intraperitoneal space: Unremarkable. No free air. No significant fluid collection. Bones/joints: Multilevel spondylosis. 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 No acute fracture. No dislocation. Soft tissues: Small bilateral fat-containing inguinal hernias. Vasculature: Unremarkable. No abdominal aortic aneurysm. Lymph nodes: Unremarkable. No enlarged lymph nodes. IMPRESSION: 1. No bowel obstruction. No appreciable mucosal thickening. 2. There is minimal nonspecific gallbladder wall thickening, a finding which can be seen in hepatic dysfunction, immunocompromise, hypoalbuminemia, acute or chronic cholecystitis among the diagnostic possibilities. Further evaluation with ultrasound may be considered as clinically warranted. 3. Other findings as above. Electronically signed by: Reg Irene MD 02/15/2023 12:46 AM CDT Due to temporary technical issues with the PACS/Fluency reporting system, reports are being signed by the in house radiologists without review as a courtesy to insure prompt reporting. The interpreting radiologist is fully responsible for the content of the report.
== END 2023-02-15 02:06 | disposition home or self-care (01) ==
LOC: ER 22:38
DX: R10.32 Left lower quadrant pain (principal)
CPT/HCPCS: 85025; 81001; 36415; 83690; 80053; 74177; 96375; 96374; 99284; Q9967; J2405; J7030